=== PATIENT | female | born 1980 | race African-American/Black ===

== ENCOUNTER 2017-10-29 16:21 | Emergency (ER) | payer MEDICAID ==
[~2017-10-29] VITALS: Ht 154.9 cm; Wt 110.0 kg
[~2017-10-29 16:21] MED LIST: AMLO5 PO; ASPI81TA82 PO; CATA0.2D TD; LABE200T2 PO
[2017-10-29 16:29] VITALS: BP 188/86; PULSE 97; RESP 16; TEMP 98.5; O2SAT 100
== END 2017-10-29 16:55 | disposition left against medical advice (07) ==
LOC: NED 16:21
DX: Z53.21 Procedure and treatment not carried out due to patient leaving prior to being seen by health care provider (principal)
CPT/HCPCS: 99281

== ENCOUNTER 2018-07-14 07:57 | Inpatient (IN) ==
[2018-07-14] MEDS ORDERED: NIFEdipine 10 MG Capsule ONE ×2 (08:16→18:24)
[2018-07-14] MEDS ORDERED: NIFEdipine 10 MG Capsule PO ONE (08:45)
[2018-07-14 09:10] LABS: Hematocrit 31.8 % (35.0-46.0); Hemoglobin 10.7 gm/dL (11.6-15.3); Mean Corpuscular HGB Conc 33.7 % (32.0-36.0); Mean Corpuscular Hemoglobin 27.5 pg (27.0-34.0); Mean Corpuscular Volume 81.6 fL (80.0-100.0); Mean Platelet Volume 8.6 fL (7.0-11.0); Platelet Count 182 th/mm3 (150-450); Red Cell Distribution Width 15.2 % (11.6-17.2); White Blood Count 9.5 th/mm3 (4.0-11.0)
[2018-07-14 09:31] LABS: Albumin 2.3 g/dL (3.4-5.0); Anion Gap 8 meq/L (5-15); Aspartate Aminotransferase 31 U/L (15-37); Blood Urea Nitrogen 9 mg/dL (7-18); Calcium 8.9 mg/dL (8.5-10.1); Carbon Dioxide 21.8 meq/L (21.0-32.0); Chloride 108 meq/L (98-107); Glomerular Filtration Rate Greater Than 89 mL/min (>89); Glucose,Random 77 mg/dL (74-106); Potassium 4.1 meq/L (3.5-5.1); Sodium 138 meq/L (136-145)
[2018-07-14 09:32] LABS: Alanine Aminotransferase 34 U/L (10-53)
[2018-07-14 09:34] LABS: Alkaline Phosphatase 153 U/L (45-117); Total Protein 6.3 g/dL (6.4-8.2)
--- NOTE | 2018-07-14 09:58 | ED ---
History of Present Illness Primary Care Physician: No Primary Care Physician Chief Complaint: shortness of breath History of Present Illness: Patient is a 37 yo at 36 weeks. Patient presented by EMS here, with c/o SOB. Patient has high risk o/a pre-eclampsia, AMA, Obesity, previous C Section. Last ,was complicated by pre-eclampsia, pulmonary embolism, and ARF and had extended stay in ICU . Pt states she woke up this morning and 'did not feel well'. She then noted SOB and called EMS, On arrival here , BP was noted to be 180/100. She denies headache or RUQ pain. She reports active movements, Patient is under the care of Dr Dubon, and is scheduled for repeat C Section at 37 weeks. Weeks Gestation:: 36 Para: 1 : 2 Review of Systems All other systems reviewed negative except as stated in HPI PMFSH - Family History Family History: Family History (Last Updated 07/14/18 @ 10:48 by Jean Myers MD) Other History of pre-eclampsia in prior , currently History of pulmonary embolism History of right salpingo-oophorectomy - Social History I have reviewed the patient's Social History: Yes - Tobacco History Tobacco Use In Past 30 Days: No Smoking Status: Never smoker - Alcohol History How Often Do You Have a Drink Containing Alcohol: Never - Travel History History of Recent Travel: No Recent Travel in the [place] Within the Last 8 Weeks: No Recent Travel Out of the Country Within the Last 8 Weeks: No Medications and Allergies Active Medications: Active Medications Sodium Chloride (Ns Flush) 2 ml IV.FLUSH BID KEITH Sodium Chloride (Ns Flush) 2 ml IV.FLUSH PRN PRN PRN Reason: FLUSH AFTER USING IV ACCESS Allergies Allergy/AdvReac Type Severity Reaction Status Date / Time No Known Allergies Allergy Verified 07/14/18 08:18 Home Medications Medication Instructions Recorded Confirmed Type labetalol 400 mg CHEW TID 07/14/18 07/14/18 History methyldopa 500 mg PO BID 07/14/18 07/14/18 History Exam Vital signs: Vital Signs 07/14/18 08:10 07/14/18 09:10 07/14/18 09:21 Pulse Rate 88 94 H 87 Blood Pressure 140/99 H 139/69 142/79 H Intake & Output 1207/14/18 07/14/18 18:59 06:59 18:59 Weight 122.47 kg Narrative: GENERAL: Well-nourished, well-developed patient, obese. SKIN: Warm and dry. HEAD: Normocephalic and atraumatic. EYES: No scleral icterus. No injection or drainage. ENT: No nasal drainage noted. Mucous membranes pink. Airway patent. NECK: Supple, trachea midline. No JVD. CARDIOVASCULAR: Regular rate and rhythm without murmurs, gallops, or rubs. RESPIRATORY: Breath sounds equal bilaterally. No accessory muscle use. BREASTS: Bilateral exam showed no masses , no retractions, no nipple discharge. ABDOMEN/GI: Abdomen soft, non-tender, bowel sounds present, no rebound, no guarding Gravid to [31] weeks size Fundal Height: [-] GENITOURINARY: External Genitalia: intact and normal in appearance BUS glands: [wnl] Cervix: [firm] Dilatation: [closed] Effacement: [50%] Station: [-3] Presentation: [vertex] Membranes: [intact] Uterine Contractions: [irregular] FHT's: Category: [1] Baseline: [120] Reactive: [-] Variability: [moderate] Decels: [none] EXTREMITIES: No cyanosis or edema 1+. 1+ DTRs at patella, no ankle clonus. BACK: Nontender without obvious deformity. No CVA tenderness. NEUROLOGICAL: Awake and alert. Motor and sensory grossly within normal limits. Five out of 5 muscle strength in all muscle groups. Normal speech. - Constitutional no acute distress Results - Labs Labs: Laboratory Results - last 24 hr 07/14/18 08:34 POC Glucose 84 Assessment and Plan - Diagnosis (1) 36 weeks gestation of Code(s): Z3A.36 - 36 weeks gestation of Status: Acute (2) Shortness of breath during Code(s): O99.89 - Other specified diseases and conditions complicating , childbirth and the puerperium; R06.02 - Shortness of breath Status: Acute Plan: Obtain chest X ray, Will keep for 23 hour observation. (3) Preeclampsia Code(s): O14.90 - Unspecified pre-eclampsia, unspecified trimester Status: Acute Discharge Plan - Discharge Disposition Patient Disposition: ED Admit(ED Internal Use Only) - Discharge Condition Condition: Fair - Discharge Details Diagnosis: Pre-eclampsia, Shortness of breath in antepartum period, 36 weeks gestation of - Physicians Team ED Provider: Zunilda Dahl Primary Care Provider: Primary Care Physici,No Other Providers: Chucky Castano MD, R2
[2018-07-14 10:49] LABS: Protein/Creatinine Ratio,Urine 0.71 (0.00-0.14); Total Protein,Urine Random 147.5 mg/dL (0-11.8)
[2018-07-14 10:50] LABS: Bacteria,Urine Moderate /hpf; Bilirubin,Urine Negative (Negative); Clarity,Urine Hazy (Clear); Color,Urine Yellow (Yellw/Straw); Glucose,Urine (UA) Negative (Negative); Leukocyte Esterase,Urine Large (Negative); Mucus,Urine Few /lpf (Occasional); Nitrite,Urine Negative (Negative); Squamous Epithelial Cell,Urine 6 /hpf (0-5)
--- NOTE | 2018-07-14 11:37 | XR ---
EXAM DATE: 07/14/2018 11:29 AM EST AGE/SEX: 37 years / Female INDICATIONS: . Short of breath. CLINICAL DATA: This is the patient's initial encounter. Patient reports that signs and symptoms have been present for 2 days and indicates a pain score of 0/10. MEDICAL/SURGICAL HISTORY: None. section. COMPARISON: [facility] [place]ST SING[place], 05/22/2013. . FINDINGS: Frontal and lateral views of the chest demonstrate cardiac silhouette size at the upper limits for no rmal. There is a blunting of the costophrenic sulci bilaterally on the lateral view. There is a quest ionable mild airspace consolidation in the right lower lobe. No pneumothorax is identified. Bones and soft tissues demonstrate no acute finding.. CONCLUSION: Trace pleural fluid bilaterally with suspected mild consolidation in the right lower lobe. Cardiac si lhouette size at the upper limits for normal. Electronically signed by: Tristian Saldana MD 07/14/2018 11:36 AM EST
--- NOTE | 2018-07-14 13:16 | ECHRPT ---
Indication: SHORTNESS OF BREATH CONCLUSIONS Normal left ventricular size. Moderate concentric left ventricular hypertrophy. The left ventricular systolic function is low normal with an estimated ejection fraction in the rang e of 50- 55%. [id number] mitral valve regurgitation. There is trace tricuspid valve regurgitation. The estimated pulmonary arterial pressure is 31 mmHg. BP: / HR: Rhythm: MEASUREMENTS (Male / Female) Normal Values Technical Quality: 2D ECHO LV Diastolic Diameter PLAX 4.7 cm 4.2 - 5.9 / 3.9 - 5.3 cm LV Systolic Diameter PLAX 3.6 cm IVS Diastolic Thickness 1.7 cm 0.6 - 1.0 / 0.6 - 0.9 cm LVPW Diastolic Thickness 1.7 cm 0.6 - 1.0 / 0.6 - 0.9 cm LV Relative Wall Thickness 0.7 RV Internal Dim ED PLAX 2.7 cm LVOT Diameter 1.8 cm Aortic Root Diameter 2.7 cm LA Systolic Diameter LX 3.5 cm 3.0 - 4.0 / 2.7 - 3.8 cm LV Ejection Fraction MOD 4C 52.1 % LV Ejection Fraction 4C AL 51.8 % M-MODE AV Cusp Separation MM 1.3 cm DOPPLER AV Peak Velocity 190.0 cm/s AV Peak Gradient 14.4 mmHg LVOT Peak Velocity 107.0 cm/s LVOT Peak Gradient 4.6 mmHg AV Area Cont Eq pk 1.4 cm MR Peak Velocity 256.5 cm/s MR Peak Gradient 26.3 mmHg Mitral E Point Velocity 97.2 cm/s Mitral A Point Velocity 102.0 cm/s Mitral E to A Ratio 1.0 TR Peak Velocity 229.0 cm/s TR Peak Gradient 21.0 mmHg Right Atrial Pressure 10.0 mmHg Pulmonary Artery Systolic Pressu 31.0 mmHg Right Ventricular Systolic Press 31.0 mmHg PV Peak Velocity 130.6 cm/s PV Peak Gradient 6.8 mmHg FINDINGS LEFT VENTRICLE Normal left ventricular size. Moderate concentric left ventricular hypertrophy. The left ventricular systolic function is low normal with an estimated ejection fraction in the rang e of 50- 55%. RIGHT VENTRICLE Normal right ventricular size and systolic function. LEFT ATRIUM The left atrial size is normal. RIGHT ATRIUM The right atrial size is normal. ATRIAL SEPTUM Normal atrial septal thickness without atrial level shunting by limited color doppler interrogation. AORTA The aortic root and proximal ascending aorta are normal in size on limited imaging. MITRAL VALVE [id number] central mitral valve regurgitation. AORTIC VALVE Trileaflet aortic valve. No aortic valve stenosis or regurgitation. TRICUSPID VALVE There is trace tricuspid valve regurgitation. The estimated pulmonary arterial pressure is 31 mmHg. PULMONARY VALVE No pulmonary valve regurgitation or stenosis. VESSELS The inferior vena cava is normal in size. PERICARDIUM No pericardial effusion. Noé Khan MD (Electronically Signed) Final Date:14 July 2018 13:16
[2018-07-14] MEDS ORDERED: Azithromycin 250 MG Tablet PO SCH (13:30)
[2018-07-14] MEDS ORDERED: Naloxone Inj 0.4 MG/ML Vial IV.PUSH PRN (14:15)
--- NOTE | 2018-07-14 15:12 | P.CONFP ---
History of Present Illness Primary Care Provider: No Primary Care Physician <Arpita Hill - 07/15/18 06:52> No Primary Care Physician <Josette Londono - 07/14/18 15:12> Chief Complaint: shortness of breath <ShakiraaltagraciaBenjamín lambJosette - 07/14/18 15:12> History of Present Illness: 37-year-old female at 38 weeks presents with shortness of breath. She says that her shortness of breath usually occurs with exertion but this morning she woke up and felt acutely short of breath at rest. She also complained of some chest pain that happened the night before, described as a pressure on her chest and was also nauseous. She states that at night she is unable to lay flat and confirms orthopnea of 2 pillows. She denies any cough. She was short of breath during her last and had to deliver because of "fluid congestion in her lungs". She was recently hospitalized around June 12 for elevated blood pressures, she was discharged and told to be on bedrest. She has been on bedrest since. She confirms leg swelling, and headaches. She denies any blurry vision, fevers, night sweats, chills, chest pain currently, shortness of breath improved, abdominal pain, problems with urination or defecation, leg pain. Past medical history: Heart murmur, hypertension, GERD. Past obstetrical history: Diagnosed with preeclampsia in previous , had episodes of shortness of breath, PE, acute renal failure with ICU stay after delivery. Medications: Alpha methyldopa 500 twice daily, labetalol 400 3 times daily. Past surgical history: , laparoscopy Allergies: No known drug allergy Social history: Lives with mom. Denies any smoking, drinking or drug use during . ROS: See HPI. <Josette Londono - 07/14/18 17:10> PMFSH - Family History Family History: Family History (Last Updated 07/14/18 @ 10:48 by Jean Myers MD) Other History of pre-eclampsia in prior , currently History of pulmonary embolism History of right salpingo-oophorectomy <Arpita Hill - 07/15/18 06:52> Family History (Last Updated 07/14/18 @ 10:48 by Jean Myers MD) Other History of pre-eclampsia in prior , currently History of pulmonary embolism History of right salpingo-oophorectomy <ShakiracinthiaJosette - 07/14/18 15:12> - Tobacco History Tobacco Use In Past 30 Days: No <ShakiracinthiaJosette - 07/14/18 15:12> Smoking Status: Never smoker <ShakiracinthiaJosette - 07/14/18 15:12> - Alcohol History How Often Do You Have a Drink Containing Alcohol: Never <Josette Londono - 02/22 15:12> - Travel History History of Recent Travel: No <ShakiracinthiaJosette - 07/14/18 15:12> Recent Travel in the [place] Within the Last 8 Weeks: No <Josette Londono - 15:12> Recent Travel Out of the Country Within the Last 8 Weeks: No <BryJosette - 07/14/18 15:12> Medications and Allergies Allergies Allergy/AdvReac Type Severity Reaction Status Date / Time No Known Allergies Allergy Verified 07/14/18 08:18 <Arpita Hill - 07/15/18 06:52> Home Medications Medication Instructions Recorded Confirmed Type labetalol 400 mg CHEW TID 07/14/18 07/14/18 History methyldopa 500 mg PO BID 07/14/18 07/14/18 History <Arpita Hill - 07/15/18 06:52> Active Medications: Active Medications Acetaminophen (Tylenol) 650 mg PO Q6HR PRN PRN Reason: pain Acetaminophen (Tylenol) 650 mg PO Q6H PRN PRN Reason: PAIN SCALE 1 TO 2 Calcium Gluconate (Calcium Gluconate Inj) 1 gm IV.PUSH PRN PRN PRN Reason: Magnesium toxicity Diphenhydramine HCl (Benadryl Inj) 25 mg IV.PUSH Q6H PRN PRN Reason: MILD TO MODERATE ITCHING Stop: 07/16/18 05:29 Diphenhydramine HCl (Benadryl) 50 mg PO Q6H PRN PRN Reason: MILD TO MODERATE ITCHING Stop: 07/16/18 05:29 Diphtheria/Pertussis/Tetanus Vacc (Boostrix Vaccine Inj) 0.5 ml IM .ONCE ONE Stop: 07/16/18 16:01 Enoxaparin Sodium (Lovenox Inj) 40 mg SQ DAILY [facility] Ceftriaxone Sodium 1,000 mg/ (Sodium Chloride) 100 mls @ 200 mls/hr IV.SIG Q24H [facility] Last Infusion: 07/14/18 14:35 Dose: Infused Lactated Ringer's (Lr 1000 Ml Inj) 1,000 mls @ 100 mls/hr IV.CONT .Q10H [facility] Stop: 07/16/18 03:35 Oxytocin (Pitocin 30 Units/Ns 500 Ml Premix) 30 units in 500 mls @ 100 mls/hr IV.SIG UNSCH PRN PRN Reason: Heavy bleeding Oxytocin (Pitocin 30 Units/Ns 500 Ml Premix) 30 units in 500 mls @ 100 mls/hr IV.SIG ONCE ONE Stop: 07/15/18 07:35 Last Admin: 07/15/18 05:19 Dose: 100 mls/hr Lactated Ringer's (Lr 1000 Ml Inj) 1,000 mls @ 75 mls/hr IV.CONT .[id number] [facility] Last Admin: 07/15/18 05:19 Dose: 75 mls/hr Magnesium Sulfate (Magnesium Sulfate/Water 40 Gm/1000 Ml Premix) 40 gm in 1, 000 mls @ 50 mls/hr IV.CONT Q24H [facility] Last Admin: 07/15/18 02:57 Dose: 2 gm/hr, 50 mls/hr Cefazolin Sodium/Dextrose (Ancef 2 Gm Premix Inj) 2 gm in 50 mls @ 100 mls/hr IV.SIG Q8H [facility] Stop: 07/15/18 17:29 Ibuprofen (Motrin) 800 mg PO Q8H PRN PRN Reason: cramping Ketorolac Tromethamine (Toradol Inj) 30 mg IM Q6H PRN PRN Reason: SEE LABEL COMMENTS Labetalol HCl (Trandate) 400 mg PO TID [facility] Last Admin: 07/14/18 18:56 Dose: Not Given Measles/Mumps/Rubella Vaccine Live (M-M-R Ii Vaccine Inj) 0.5 ml SQ .ONCE ONE Stop: 07/16/18 16:01 Methyldopa (Aldomet) 500 mg PO BID [facility] Last Admin: 12/07/18 20:49 Dose: 500 mg Miscellaneous Information ([facility] Nursing Information) 1 each OTHER UNSCH PRN PRN Reason: SEE LABEL COMMENTS Stop: 07/16/18 05:29 Miscellaneous Information ([facility] Nursing Information) 1 each OTHER UNSCH PRN PRN Reason: SEE LABEL COMMENTS Stop: 07/16/18 05:29 Naloxone HCl (Narcan Inj) 0.4 mg IV.PUSH UNSCH PRN PRN Reason: SEE LABEL COMMENTS Naloxone HCl (Narcan Inj) 0.4 mg IV.PUSH UNSCH PRN PRN Reason: SEE LABEL COMMENTS Stop: 07/16/18 05:29 Ondansetron HCl (Zofran Inj) 4 mg IV.PUSH Q6H PRN PRN Reason: NAUSEA OR VOMITING Oxycodone/Acetaminophen (Percocet 5/325 Mg) 1 tab PO Q4H PRN PRN Reason: PAIN SCALE 3 TO 5 Oxycodone/Acetaminophen (Percocet 5/325 Mg) 2 tab PO Q4H PRN PRN Reason: PAIN SCALE 6 TO 10 Senna/Docusate Sodium (Siria-Colace) 2 tab PO Q12H PRN PRN Reason: CONSTIPATION Simethicone (Mylicon Chew) 80 mg PO QID PRN PRN Reason: FLATULENCE Sodium Chloride (Ns Flush) 2 ml IV.FLUSH BID [facility] Last Admin: 07/14/18 20:49 Dose: 2 ml Sodium Chloride (Ns Flush) 2 ml IV.FLUSH PRN PRN PRN Reason: FLUSH AFTER USING IV ACCESS Sodium Chloride (Ns Flush) 2 ml IV.FLUSH BID [facility] Sodium Chloride (Ns Flush) 2 ml IV.FLUSH PRN PRN PRN Reason: FLUSH AFTER USING IV ACCESS Sodium Chloride (Ns Flush) 2 ml IV.FLUSH BID [facility] Sodium Chloride (Ns Flush) 2 ml IV.FLUSH PRN PRN PRN Reason: FLUSH AFTER USING IV ACCESS Zolpidem Tartrate (Ambien) 5 mg PO HS PRN PRN Reason: INSOMNIA <Arpita Hill R - 07/15/18 06:52> Active Medications Acetaminophen (Tylenol) 650 mg PO Q6HR PRN PRN Reason: pain Azithromycin (Zithromax) 500 mg PO DAILY [facility] Last Admin: 07/14/18 14:05 Dose: 500 mg Ceftriaxone Sodium 1,000 mg/ (Sodium Chloride) 100 mls @ 200 mls/hr IV.SIG Q24H [facility] Last Admin: 07/14/18 14:05 Dose: 200 mls/hr Labetalol HCl (Trandate) 400 mg PO TID [facility] Methyldopa (Aldomet) 500 mg PO BID [facility] Naloxone HCl (Narcan Inj) 0.4 mg IV.PUSH UNSCH PRN PRN Reason: SEE LABEL COMMENTS Sodium Chloride (Ns Flush) 2 ml IV.FLUSH BID [facility] Sodium Chloride (Ns Flush) 2 ml IV.FLUSH PRN PRN PRN Reason: FLUSH AFTER USING IV ACCESS <Josette Londono - 07/14/18 15:12> Exam Vital signs: Vital Signs 07/14/18 08:10 07/14/18 09:10 07/14/18 09:21 Temperature Pulse Rate 88 94 H 87 Respiratory Rate Blood Pressure 140/99 H 139/69 142/79 H 07/14/18 13:55 07/14/18 14:00 07/14/18 14:10 Temperature 98.9 F Pulse Rate 90 87 85 Respiratory Rate 22 Blood Pressure 152/82 H 07/14/18 14:35 07/14/18 14:40 07/14/18 14:50 Temperature Pulse Rate 88 86 86 Respiratory Rate Blood Pressure 07/14/18 16:00 07/14/18 16:10 07/14/18 16:20 Temperature 99.1 F Pulse Rate 91 H 86 86 Respiratory Rate 22 Blood Pressure 178/76 H 07/14/18 16:45 07/14/18 17:25 07/14/18 17:30 Temperature 98.5 F Pulse Rate 88 80 Respiratory Rate 20 Blood Pressure 172/84 H 07/14/18 17:35 07/14/18 17:38 07/14/18 18:15 Temperature Pulse Rate 95 H 86 85 Respiratory Rate Blood Pressure 174/86 H 174/80 H 07/14/18 18:17 07/14/18 18:20 07/14/18 18:25 Temperature Pulse Rate 90 84 87 Respiratory Rate 22 Blood Pressure 165/83 H 07/14/18 18:40 07/14/18 18:50 07/14/18 18:54 Temperature Pulse Rate 85 97 H 94 H Respiratory Rate 28 H Blood Pressure 161/80 H 157/89 H 07/14/18 18:55 07/14/18 19:25 07/14/18 19:32 Temperature 99.3 F Pulse Rate 93 H 89 90 Respiratory Rate 18 Blood Pressure 151/77 H 150/86 H 142/78 H 07/14/18 20:00 07/14/18 20:01 07/14/18 20:49 Temperature Pulse Rate 95 H 91 H 87 Respiratory Rate Blood Pressure 140/68 149/89 H 07/14/18 21:15 07/14/18 21:25 07/14/18 21:31 Temperature Pulse Rate 88 82 82 Respiratory Rate Blood Pressure 160/82 H 07/14/18 21:35 07/14/18 22:05 07/14/18 22:10 Temperature Pulse Rate 84 81 89 Respiratory Rate Blood Pressure 156/77 H 07/14/18 22:25 07/14/18 23:55 07/15/18 00:00 Temperature Pulse Rate 83 81 81 Respiratory Rate Blood Pressure 182/87 H 07/15/18 00:05 07/15/18 00:20 07/15/18 02:35 Temperature 97.5 F L Pulse Rate 79 81 62 Respiratory Rate 20 Blood Pressure 181/82 H 147/78 H 07/15/18 02:53 07/15/18 03:03 07/15/18 03:11 Temperature Pulse Rate 56 L 68 Respiratory Rate 20 22 Blood Pressure 156/89 H 143/86 H 163/75 H 07/15/18 03:15 07/15/18 03:21 07/15/18 03:30 Temperature Pulse Rate 62 Respiratory Rate 16 Blood Pressure 163/76 H 167/79 H 07/15/18 03:31 07/15/18 03:34 07/15/18 03:51 Temperature Pulse Rate Respiratory Rate Blood Pressure 178/86 H 164/76 H 176/84 H 07/15/18 03:55 07/15/18 04:01 07/15/18 04:13 Temperature Pulse Rate 68 66 Respiratory Rate 16 Blood Pressure 178/83 H 134/74 130/69 07/15/18 04:17 07/15/18 04:29 07/15/18 05:10 Temperature Pulse Rate 67 65 Respiratory Rate Blood Pressure 153/70 H 143/63 H 140/82 07/15/18 05:13 07/15/18 05:15 07/15/18 05:25 Temperature 98.8 F Pulse Rate 73 Respiratory Rate 16 Blood Pressure 07/15/18 05:35 07/15/18 05:45 07/15/18 05:50 Temperature Pulse Rate 72 79 66 Respiratory Rate Blood Pressure 07/15/18 06:00 07/15/18 06:23 07/15/18 06:25 Temperature Pulse Rate 76 70 70 Respiratory Rate 18 Blood Pressure 138/68 07/15/18 06:35 Temperature Pulse Rate 70 Respiratory Rate Blood Pressure Intake & Output 07/14/18 07/14/18 07/15/18 06:59 18:59 06:59 Intake Total 100 / 100 / 205 Balance 100 / 100 / 205 Weight 122.47 kg Intake: IV 100 / 100 / 205 Ancef Inj 5 ML @ 0 mls/hr . 5 / 5 ROUTE .STK-MED ONE Rx#:[id number] Ofirmev Inj 1,000 mg In 100 ml 100 / 100 @ 0 mls/hr IV.SIG .STK-MED ONE Rx#:[id number] Magnesium Sulfate/Water 4 gm/ 100 / 100 100 ml Premix 100 ML @ 300 mls/ hr IV.SIG ONCE ONE Rx#:[id number] Rocephin Inj 1,000 MG In NS Inj 100 / 100 100 ML @ 200 mls/hr IV.SIG Q24H [facility] Rx#:[id number] <Arpita Hill - 07/15/18 06:52> Vital Signs 07/14/18 08:10 07/14/18 09:10 07/14/18 09:21 Temperature Pulse Rate 88 94 H 87 Respiratory Rate Blood Pressure 140/99 H 139/69 142/79 H 07/14/18 13:55 07/14/18 14:00 07/14/18 14:10 Temperature 98.9 F Pulse Rate 90 87 85 Respiratory Rate 22 Blood Pressure 152/82 H 07/14/18 14:35 Temperature Pulse Rate 88 Respiratory Rate Blood Pressure Intake & Output 07/13/18 07/14/18 07/14/18 18:59 06:59 18:59 Weight 122.47 kg <Josette Londono - 07/14/18 15:12> Narrative: GENERAL: Obese appearing female, laying comfortably in bed, on room air, in no acute distress. SKIN: Warm and dry. HEAD: Normocephalic. EYES: No scleral icterus. No injection or drainage. NECK: Supple, trachea midline. No JVD or lymphadenopathy. CARDIOVASCULAR: Grade 3 out of 5 systolic murmur appreciated at the left sternal border. RESPIRATORY: Breath sounds equal bilaterally. No accessory muscle use. GASTROINTESTINAL: Abdomen soft, non-tender, gravid. Bowel sounds present. MUSCULOSKELETAL: 2+ pitting edema bilaterally. Left calf tenderness to palpation. <BryJosette - 07/14/18 17:08> Results - Labs Result diagrams: 07/15/18 06:11 07/14/18 08:44 <Arpita Hill - 07/15/18 06:52> Abnormal lab results 07/14/18 07/14/18 07/14/18 Range/Units 08:05 08:05 08:05 WBC (4.0-11.0) th/mm3 RBC (4.00-5.30) mil/mm3 Hgb (11.6-15.3) gm/dL Hct (35.0-46.0) % Chloride (98-107) meq/L Alkaline Phosphatase (45-117) U/L Total Protein (6.4-8.2) g/dL Albumin (3.4-5.0) g/dL Urine Clarity Hazy H (Clear) Urine Protein 100 H (Neg-Trace) mg/dL Urine Ketones Trace H (Negative) mg/dL Urine Occult Blood Small H (Negative) Ur Leukocyte Esterase Large H (Negative) Urine RBC 4 H (0-3) /hpf Urine WBC 15 H (0-5) /hpf Urine Bacteria Moderate H (None) /hpf Urine Mucus Few H (Occasional) /lpf U Random Total Protein 147.5 H (0-11.8) mg/dL Protein/Creatinin Ratio 0.71 H (0.00-0.14) Ur Amphetamine Screen Pos H (Neg) 07/14/18 07/14/18 07/15/18 Range/Units 08:44 08:44 06:11 WBC 16.7 H D (4.0-11.0) th/mm3 RBC 3.90 L 3.91 L (4.00-5.30) mil/mm3 Hgb 10.7 L 10.9 L (11.6-15.3) gm/dL Hct 31.8 L 31.5 L (35.0-46.0) % Chloride 108 H (98-107) meq/L Alkaline Phosphatase 153 H (45-117) U/L Total Protein 6.3 L (6.4-8.2) g/dL Albumin 2.3 L (3.4-5.0) g/dL Urine Clarity (Clear) Urine Protein (Neg-Trace) mg/dL Urine Ketones (Negative) mg/dL Urine Occult Blood (Negative) Ur Leukocyte Esterase (Negative) Urine RBC (0-3) /hpf Urine WBC (0-5) /hpf Urine Bacteria (None) /hpf Urine Mucus (Occasional) /lpf U Random Total Protein (0-11.8) mg/dL Protein/Creatinin Ratio (0.00-0.14) Ur Amphetamine Screen (Neg) Short CBC 07/14/18 07/15/18 Range/Units 08:44 06:11 WBC 9.5 16.7 H D (4.0-11.0) th/mm3 Hgb 10.7 L 10.9 L (11.6-15.3) gm/dL Hct 31.8 L 31.5 L (35.0-46.0) % Plt Count 182 194 (150-450) th/mm3 BMP 07/14/18 08:44 Sodium 138 Potassium 4.1 Chloride 108 H Carbon Dioxide 21.8 BUN 9 Creatinine 0.73 Calcium 8.9 Cardiac Enzymes 07/14/18 Range/Units 14:00 Troponin I 0.02 (0.02-0.05) ng/mL Liver Function 07/14/18 Range/Units 08:44 Total Bilirubin 0.3 (0.2-1.0) mg/dL AST 31 (15-37) U/L ALT 34 (10-53) U/L Alkaline Phosphatase 153 H (45-117) U/L Albumin 2.3 L (3.4-5.0) g/dL Urine 07/14/18 Range/Units 08:05 Urine Color Yellow (Yellw/Straw) Urine Clarity Hazy H (Clear) Urine pH 6.0 (5.0-8.5) Ur Specific [place] 1.020 (1.002-1.035) Urine Protein 100 H (Neg-Trace) mg/dL Urine Glucose (UA) Negative (Negative) mg/dL <Arpita Hill - 07/15/18 06:52> Abnormal lab results 07/14/18 07/14/18 07/14/18 Range/Units 08:05 08:05 08:44 RBC 3.90 L (4.00-5.30) mil/mm3 Hgb 10.7 L (11.6-15.3) gm/dL Hct 31.8 L (35.0-46.0) % Chloride (98-107) meq/L Alkaline Phosphatase (45-117) U/L Total Protein (6.4-8.2) g/dL Albumin (3.4-5.0) g/dL Urine Clarity Hazy H (Clear) Urine Protein 100 H (Neg-Trace) mg/dL Urine Ketones Trace H (Negative) mg/dL Urine Occult Blood Small H (Negative) Ur Leukocyte Esterase Large H (Negative) Urine RBC 4 H (0-3) /hpf Urine WBC 15 H (0-5) /hpf Urine Bacteria Moderate H (None) /hpf Urine Mucus Few H (Occasional) /lpf U Random Total Protein 147.5 H (0-11.8) mg/dL Protein/Creatinin Ratio 0.71 H (0.00-0.14) 07/14/18 Range/Units 08:44 RBC (4.00-5.30) mil/mm3 Hgb (11.6-15.3) gm/dL Hct (35.0-46.0) % Chloride 108 H (98-107) meq/L Alkaline Phosphatase 153 H (45-117) U/L Total Protein 6.3 L (6.4-8.2) g/dL Albumin 2.3 L (3.4-5.0) g/dL Urine Clarity (Clear) Urine Protein (Neg-Trace) mg/dL Urine Ketones (Negative) mg/dL Urine Occult Blood (Negative) Ur Leukocyte Esterase (Negative) Urine RBC (0-3) /hpf Urine WBC (0-5) /hpf Urine Bacteria (None) /hpf Urine Mucus (Occasional) /lpf U Random Total Protein (0-11.8) mg/dL Protein/Creatinin Ratio (0.00-0.14) Short CBC 07/14/18 Range/Units 08:44 WBC 9.5 (4.0-11.0) th/mm3 Hgb 10.7 L (11.6-15.3) gm/dL Hct 31.8 L (35.0-46.0) % Plt Count 182 (150-450) th/mm3 BMP 07/14/18 08:44 Sodium 138 Potassium 4.1 Chloride 108 H Carbon Dioxide 21.8 BUN 9 Creatinine 0.73 Calcium 8.9 Cardiac Enzymes 07/14/18 Range/Units 14:00 Troponin I 0.02 (0.02-0.05) ng/mL Liver Function 07/14/18 Range/Units 08:44 Total Bilirubin 0.3 (0.2-1.0) mg/dL AST 31 (15-37) U/L ALT 34 (10-53) U/L Alkaline Phosphatase 153 H (45-117) U/L Albumin 2.3 L (3.4-5.0) g/dL Urine 07/14/18 Range/Units 08:05 Urine Color Yellow (Yellw/Straw) Urine Clarity Hazy H (Clear) Urine pH 6.0 (5.0-8.5) Ur Specific [place] 1.020 (1.002-1.035) Urine Protein 100 H (Neg-Trace) mg/dL Urine Glucose (UA) Negative (Negative) mg/dL <Josette Londono - 07/14/18 15:12> - Imaging Impressions Chest CTA 07/14/18 00:00 CONCLUSION: 1. There is no evidence for central pulmonary emboli 2. Trace bilateral pleural effusions larger on the right. Chest X-Ray 07/14/18 10:04 CONCLUSION: Trace pleural fluid bilaterally with suspected mild consolidation in the right lower lobe. Cardiac silhouette size at the upper limits for normal. <Arpita Hill - 07/15/18 06:52> Impressions Chest X-Ray 07/14/18 10:04 CONCLUSION: Trace pleural fluid bilaterally with suspected mild consolidation in the right lower lobe. Cardiac silhouette size at the upper limits for normal. <Josette Londono - 07/14/18 15:12> Assessment and Plan - Assessment (1) Shortness of breath during Code(s): O99.89 - Other specified diseases and conditions complicating , childbirth and the puerperium; R06.02 - Shortness of breath Status: Acute (2) 36 weeks gestation of Code(s): Z3A.36 - 36 weeks gestation of Status: Acute (3) Preeclampsia Code(s): O14.90 - Unspecified pre-eclampsia, unspecified trimester Status: Acute (4) Urinary tract infection Code(s): N39.0 - Urinary tract infection, site not specified Status: Acute (5) DVT prophylaxis Status: Acute (6) Nutrition, metabolism, and development symptoms Code(s): R63.8 - Other symptoms and signs concerning food and fluid intake Status: Acute <Arpita Hill Ashwini - 07/15/18 06:52> (1) Shortness of breath during Code(s): O99.89 - Other specified diseases and conditions complicating , childbirth and the puerperium; R06.02 - Shortness of breath Status: Acute Plan: 37-year-old female with preeclampsia, past history of PE, presents with acute onset shortness of breath at rest. Due to patient being on bedrest, previous PE, hypercoagulable state with , left calf pain on exam and acute shortness of breath. Concern for PE -Chest x-ray concerning for right lower lobe consolidation. VQ scan will be an accurate due to abnormal chest x-ray. Will order CTA to rule out PE. -Empirically start on ceftriaxone and azithromycin to cover for atypical and gram-positive pneumonia. -Patient complaining of chest pressure last night. Will order EKG and troponins. -Patient has orthopnea. Echocardiogram ordered to rule out cardiomyopathy. -Continue on labetalol 400 mg and Aldomet 500 p.o. twice daily -Continue to monitor blood pressures. (2) 36 weeks gestation of Code(s): Z3A.36 - 36 weeks gestation of Status: Acute Plan: She confirms good movements. Plans for repeat at 37 weeks. BPP ordered. (3) Preeclampsia Code(s): O14.90 - Unspecified pre-eclampsia, unspecified trimester Status: Acute Plan: Continue on labetalol and methyldopa. Urine protein/creatinine ordered. (4) Urinary tract infection Code(s): N39.0 - Urinary tract infection, site not specified Status: Acute Plan: Urine positive for large leukocyte esterase. Moderate bacteria. Urine culture pending. Will start on 1 g of ceftriaxone. (5) DVT prophylaxis Status: Acute Plan: SCD only. (6) Nutrition, metabolism, and development symptoms Code(s): R63.8 - Other symptoms and signs concerning food and fluid intake Status: Acute Plan: Fluids: Average p.o. intake Electrolyte: Monitor and replete as needed. Nutrition: Regular diet. <Josette Londono - 07/14/18 17:14> - Assessment and Plan Discussed Condition With: Dr. Hill. <Josette Londono - 07/14/18 17:12> - Attending Attestation Patient seen and examined with the resident team. Agree with assessment and plan as above. Possible PNA on CXR, urine with signs of UTI - treat with rocephin/zithromax - follow cultures R/o PE in this high risk patient with CTA. Risks/benefits reviewed with patient. She agrees to the testing Echo to help determine if PT has CHF picture Check cardiac enzymes. <Arpita Hill - 07/15/18 06:52>
--- NOTE | 2018-07-14 15:44 | CT ---
EXAM DATE: 07/14/2018 3:36 PM EST AGE/SEX: 37 years / Female INDICATIONS: Short of breath, Patient 36 weeks CLINICAL DATA: This is the patient's initial encounter. Patient reports that signs and symptoms have been present for 1 day and indicates a pain score of 6/10. MEDICAL/SURGICAL HISTORY: . Pulmonary Embolism . Right oophorectomy RADIATION DOSE: 10.62 CTDI (mGy) COMPARISON: No prior exams available for comparison. TECHNIQUE: Volumetric scanning was performed using a multi-row detector CT scanner during bolus infu raman of 74ML ml Omnipaque 350 (iohexol) nonionic water-soluble contrast as a single exam dose. The d addie was post processed with a variety of visualization algorithms including full volume maximum inten sity projection and sliding thin slab reformation. Using automated exposure control and adjustment of the mA and/or kV according to patient size, radiation dose was kept as low as reasonably achievable to obtain optimal diagnostic quality images. DICOM format image data is available electronically for review and comparison. FINDINGS: Pulmonary Arteries: No filling defects are seen in the pulmonary arteries out to the subsegmental ve ssels. Heart is prominent probably related to . The left and right pulmonary arteries are no rmal in diameter. Lung: No infiltrates seen. Effusion: Trace bilateral pleural effusions larger on the right Mediastinum: No evidence of mediastinal or hilar adenopathy. CONCLUSION: 1. There is no evidence for central pulmonary emboli 2. Trace bilateral pleural effusions larger on the right. Electronically signed by: Riley Romero MD 07/14/2018 3:42 PM EST
[2018-07-14] MEDS ORDERED: Labetalol 200 MG Tablet PO ONE (16:15)
[2018-07-14] MEDS ORDERED: hydrALAZINE HCl Inj 20 MG/ML Vial IV.PUSH STA (17:52)
[2018-07-14] MEDS ORDERED: NIFEdipine 10 MG Capsule PO STA (18:24)
[2018-07-14] MEDS: Labetalol 200 MG Tablet PO SCH (18:56)
[2018-07-14 20:23] LABS: Benzodiazepine Urine With Conf Neg (Neg); Cocaine Urine With Conf Neg (Neg); Opiates Urine With Conf Neg (Neg)
[2018-07-14 20:27] LABS: Cannabinoid Urine With Conf Neg (Neg)
[2018-07-14 20:29] LABS: Amphetamine Urine With Conf Pos (Neg)
[2018-07-14] MEDS ORDERED: Labetalol 100 MG Tablet PO ONE (21:55)
--- NOTE | 2018-07-14 22:20 | P.HPOB ---
History of Present Illness Primary Care Physician: No Primary Care Physician Chief Complaint: shortness of breath History of Present Illness: Patient is a 37 yo at 36 weeks who presented to OB ED via EMS. Patient reported SOB this morning on waking up. On presentation to ED initial BP was 180/100. Pt has high risk complicated by pre-eclampsia, AMA, obesity and previous c Section. Pt had delivery by C section 3 years ago that was also complicated by pre- eclampsia. After that delivery she developed PE, ARF and had extended ICU admission. C Section was indicated for NRFHR. She is on Labetalol 400mg TID and Aldomet 500mg BID. Medication has been progressively increased past few weeks. Pt has had weekly 24 hour urine protein past few weeks, with numbers creeping past 300mg. She was scheduled for repeat LTCS at 37 weeks . She has twice weekly testing. Patient has been on ASA 81mg . Sge reports active movements. She has intermittent headaches, but no blurred vision or epigastric pain. Platelets, AST/ALT were all wnl. However random urine PCR was elevated. BP was controlled with PO Nifedipine. However chest xray showed right lower lobe consolidation, with trace pleural edema. Chest CTA ruled out pulmonary embolism. ECHO was wnl. Weeks Gestation:: 36 Para: 1 : 2 - Inpatient Certification I certify that the inpatient services were ordered in accordance with Medicare regulations governing the order. This includes certification that hospital inpatient services are reasonable and necessary and in the case of services not specified as inpatient-only under 42 CFR 419.22(n), that they are appropriately provided as inpatient services in accordance to with the 2-midnight benchmark under 43 CFR 412.3(e) Review of Systems All other systems reviewed negative except as stated in HPI PMFSH - Medical History Medical History: Medical History (Last Updated 07/14/18 @ 22:12 by Jean Myers MD) History of pulmonary embolism (Acute) History of pre-eclampsia (Acute) History of pulmonary embolism - Surgical History Surgical History: Surgical History (Last Updated 07/14/18 @ 22:12 by Jean Myers MD) History of section (Acute) - Family History Family History: Family History (Last Reviewed 07/14/18 @ 22:13 by Jean Myers MD) Other History of pre-eclampsia in prior , currently History of pulmonary embolism History of right salpingo-oophorectomy - Social History I have reviewed the patient's Social History: Yes - Tobacco History Tobacco Use In Past 30 Days: No Smoking Status: Never smoker - Alcohol History How Often Do You Have a Drink Containing Alcohol: Never - Travel History History of Recent Travel: No Recent Travel in the [place] Within the Last 8 Weeks: No Recent Travel Out of the Country Within the Last 8 Weeks: No Medications and Allergies Active Medications: Active Medications Acetaminophen (Tylenol) 650 mg PO Q6HR PRN PRN Reason: pain Ceftriaxone Sodium 1,000 mg/ (Sodium Chloride) 100 mls @ 200 mls/hr IV.SIG Q24H [facility] Last Infusion: 07/14/18 14:35 Dose: Infused Labetalol HCl (Trandate) 400 mg PO TID [facility] Last Admin: 07/14/18 18:56 Dose: Not Given Labetalol HCl (Trandate) 400 mg PO ONCE ONE Stop: 07/14/18 21:56 Methyldopa (Aldomet) 500 mg PO BID [facility] Last Admin: 07/14/18 20:49 Dose: 500 mg Naloxone HCl (Narcan Inj) 0.4 mg IV.PUSH UNSCH PRN PRN Reason: SEE LABEL COMMENTS Sodium Chloride (Ns Flush) 2 ml IV.FLUSH BID [facility] Last Admin: 07/14/18 20:49 Dose: 2 ml Sodium Chloride (Ns Flush) 2 ml IV.FLUSH PRN PRN PRN Reason: FLUSH AFTER USING IV ACCESS Allergies Allergy/AdvReac Type Severity Reaction Status Date / Time No Known Allergies Allergy Verified 07/14/18 08:18 Home Medications Medication Instructions Recorded Confirmed Type labetalol 400 mg CHEW TID 07/14/18 07/14/18 History methyldopa 500 mg PO BID 07/14/18 07/14/18 History Exam Vital signs: Vital Signs 07/14/18 08:10 07/14/18 09:10 07/14/18 09:21 Temperature Pulse Rate 88 94 H 87 Respiratory Rate Blood Pressure 140/99 H 139/69 142/79 H 07/14/18 13:55 07/14/18 14:00 07/14/18 14:10 Temperature 98.9 F Pulse Rate 90 87 85 Respiratory Rate 22 Blood Pressure 152/82 H 07/14/18 14:35 07/14/18 14:40 07/14/18 14:50 Temperature Pulse Rate 88 86 86 Respiratory Rate Blood Pressure 07/14/18 16:00 07/14/18 16:10 07/14/18 16:20 Temperature 99.1 F Pulse Rate 91 H 86 86 Respiratory Rate 22 Blood Pressure 178/76 H 07/14/18 16:45 07/14/18 17:25 07/14/18 17:30 Temperature 98.5 F Pulse Rate 88 80 Respiratory Rate 20 Blood Pressure 172/84 H 07/14/18 17:35 07/14/18 17:38 07/14/18 18:15 Temperature Pulse Rate 95 H 86 85 Respiratory Rate Blood Pressure 174/86 H 174/80 H 07/14/18 18:17 07/14/18 18:20 07/14/18 18:25 Temperature Pulse Rate 90 84 87 Respiratory Rate 22 Blood Pressure 165/83 H 07/14/18 18:40 07/14/18 18:50 07/14/18 18:54 Temperature Pulse Rate 85 97 H 94 H Respiratory Rate 28 H Blood Pressure 161/80 H 157/89 H 07/14/18 18:55 07/14/18 19:25 07/14/18 19:32 Temperature 99.3 F Pulse Rate 93 H 89 90 Respiratory Rate 18 Blood Pressure 151/77 H 150/86 H 142/78 H 07/14/18 20:00 07/14/18 20:01 07/14/18 20:49 Temperature Pulse Rate 95 H 91 H 87 Respiratory Rate Blood Pressure 140/68 149/89 H 07/14/18 21:15 07/14/18 21:25 07/14/18 21:31 Temperature Pulse Rate 88 82 82 Respiratory Rate Blood Pressure 160/82 H 07/14/18 21:35 Temperature Pulse Rate 84 Respiratory Rate Blood Pressure Intake & Output 07/14/18 07/14/18 07/15/18 06:59 18:59 06:59 Intake Total 100 / 100 Balance 100 / 100 Weight 122.47 kg Intake: IV 100 / 100 Rocephin Inj 1,000 MG In NS Inj 100 / 100 100 ML @ 200 mls/hr IV.SIG Q24H [facility] Rx#:[id number] Narrative: GENERAL: Well-nourished, well-developed patient, obese. SKIN: Warm and dry. HEAD: Normocephalic and atraumatic. EYES: No scleral icterus. No injection or drainage. ENT: No nasal drainage noted. Mucous membranes pink. Airway patent. NECK: Supple, trachea midline. No JVD. CARDIOVASCULAR: Regular rate and rhythm without murmurs, gallops, or rubs. RESPIRATORY: reduced air entry bilateral bases. No accessory muscle use. BREASTS: Bilateral exam showed no masses , no retractions, no nipple discharge. ABDOMEN/GI: Abdomen soft, non-tender, bowel sounds present, no rebound, no guarding Gravid to [31] weeks size Fundal Height: [-] GENITOURINARY: External Genitalia: intact and normal in appearance BUS glands: [wnl] Cervix: [firm] Dilatation: [closed] Effacement: [50%] Station: [-3] Presentation: [vertex] Membranes: [intact] Uterine Contractions: [irregular] FHT's: Category: [1] Baseline: [120] Reactive: [-] Variability: [moderate] Decels: [none] EXTREMITIES: No cyanosis or edema 1+. 1+ DTRs at patella, no ankle clonus. BACK: Nontender without obvious deformity. No CVA tenderness. NEUROLOGICAL: Awake and alert. Motor and sensory grossly within normal limits. Five out of 5 muscle strength in all muscle groups. Normal speech. - Constitutional mild distress Results - Labs CBC & Chem 7: 07/14/18 08:44 07/14/18 08:44 Labs: Laboratory Results - last 24 hr 07/14/18 07/14/18 07/14/18 08:05 08:05 08:05 WBC RBC Hgb Hct MCV MCH MCHC RDW Plt Count MPV Sodium Potassium Chloride Carbon Dioxide Anion Gap BUN Creatinine Estimated GFR POC Glucose Random Glucose Calcium Total Bilirubin AST ALT Alkaline Phosphatase Troponin I Total Protein Albumin Urine Color Yellow Urine Clarity Hazy H Urine pH 6.0 Ur Specific [place] 1.020 Urine Protein 100 H Urine Glucose (UA) Negative Urine Ketones Trace H Urine Occult Blood Small H Urine Nitrate Negative Urine Bilirubin Negative Urine Urobilinogen Less than 2 Ur Leukocyte Esterase Large H Urine RBC 4 H Urine WBC 15 H Ur Squamous Epith Cells 6 Urine Bacteria Moderate H Urine Mucus Few H Micro UA Comment Culture indicated Ur Microscopic Review Not Reportable Urine Culture Comments Culture indicated Ur Random Creatinine 209 U Random Total Protein 147.5 H Protein/Creatinin Ratio 0.71 H Urine Opiates Screen Neg Ur Barbiturates Screen Neg Ur Amphetamine Screen Pos H U Benzodiazepines Scrn Neg Urine Cocaine Screen Neg U Cannabinoids Screen Neg Blood Type Antibody Screen 07/14/18 07/14/18 07/14/18 08:34 08:44 08:44 WBC 9.5 RBC 3.90 L Hgb 10.7 L Hct 31.8 L MCV 81.6 MCH 27.5 MCHC 33.7 RDW 15.2 Plt Count 182 MPV 8.6 Sodium 138 Potassium 4.1 Chloride 108 H Carbon Dioxide 21.8 Anion Gap 8 BUN 9 Creatinine 0.73 Estimated GFR Greater than 89 POC Glucose 84 Random Glucose 77 Calcium 8.9 Total Bilirubin 0.3 AST 31 ALT 34 Alkaline Phosphatase 153 H Troponin I Total Protein 6.3 L Albumin 2.3 L Urine Color Urine Clarity Urine pH Ur Specific [place] Urine Protein Urine Glucose (UA) Urine Ketones Urine Occult Blood Urine Nitrate Urine Bilirubin Urine Urobilinogen Ur Leukocyte Esterase Urine RBC Urine WBC Ur Squamous Epith Cells Urine Bacteria Urine Mucus Micro UA Comment Ur Microscopic Review Urine Culture Comments Ur Random Creatinine U Random Total Protein Protein/Creatinin Ratio Urine Opiates Screen Ur Barbiturates Screen Ur Amphetamine Screen U Benzodiazepines Scrn Urine Cocaine Screen U Cannabinoids Screen Blood Type Antibody Screen 07/14/18 07/14/18 08:44 14:00 WBC RBC Hgb Hct MCV MCH MCHC RDW Plt Count MPV Sodium Potassium Chloride Carbon Dioxide Anion Gap BUN Creatinine Estimated GFR POC Glucose Random Glucose Calcium Total Bilirubin AST ALT Alkaline Phosphatase Troponin I 0.02 Total Protein Albumin Urine Color Urine Clarity Urine pH Ur Specific [place] Urine Protein Urine Glucose (UA) Urine Ketones Urine Occult Blood Urine Nitrate Urine Bilirubin Urine Urobilinogen Ur Leukocyte Esterase Urine RBC Urine WBC Ur Squamous Epith Cells Urine Bacteria Urine Mucus Micro UA Comment Ur Microscopic Review Urine Culture Comments Ur Random Creatinine U Random Total Protein Protein/Creatinin Ratio Urine Opiates Screen Ur Barbiturates Screen Ur Amphetamine Screen U Benzodiazepines Scrn Urine Cocaine Screen U Cannabinoids Screen Blood Type B Positive Antibody Screen Negative - Imaging Impressions Chest CTA 07/14/18 00:00 CONCLUSION: 1. There is no evidence for central pulmonary emboli 2. Trace bilateral pleural effusions larger on the right. Chest X-Ray 07/14/18 10:04 CONCLUSION: Trace pleural fluid bilaterally with suspected mild consolidation in the right lower lobe. Cardiac silhouette size at the upper limits for normal. Caprini VTE Risk Assessment Caprini VTE Risk Assessment: Moderate/High Risk (score >= 2) Caprini Risk Assessment Model: Point Value = 1 Point Value = 2 Point Value = 3 Point Value = 5 Age 41-60 Minor surgery BMI > 25 kg/m2 Swollen legs Varicose veins or History of unexplained or recurrent spontaneous Oral contraceptives or hormone replacement Sepsis (< 1 month) Serious lung disease, including pneumonia (< 1 month) Abnormal pulmonary function Acute myocardial infarction Congestive heart failure (< 1 month) History of inflammatory bowel disease Medical patient at bed rest Age 61-74 Arthroscopic surgery Major open surgery (> 45 min) Laparoscopic surgery (> 45 min) Malignancy Confined to bed (> 72 hours) Immobilizing plaster cast Central venous access Age >= 75 History of VTE Family history of VTE Factor V Leiden Prothrombin [id number] Lupus anticoagulant Anticardiolipin antibodies Elevated serum homocysteine Heparin-induced thrombocytopenia Other congenital or acquired thrombophilia Stroke (< 1 month) Elective arthroplasty Hip, pelvis, or leg fracture Acute spinal cord injury (< 1 month) Prophylaxis Regimen: Total Risk Factor Score Risk Level Prophylaxis Regimen 0-1 Low Early ambulation 2 Moderate Order ONE of the following: *Sequential Compression Device (SCD) *Heparin 5000 units SQ BID 3-4 Higher Order ONE of the following medications: *Heparin 5000 units SQ TID *Enoxaparin/Lovenox 40 mg SQ daily (WT < 150 kg, CrCl > 30 mL/min) *Enoxaparin/Lovenox 30 mg SQ daily (WT < 150 kg, CrCl > 10-29 mL/min) *Enoxaparin/Lovenox 30 mg SQ BID (WT < 150 kg, CrCl > 30 mL/min) AND/OR *Sequential Compression Device (SCD) 5 or more Highest Order ONE of the following medications: *Heparin 5000 units SQ TID (Preferred with Epidurals) *Enoxaparin/Lovenox 40 mg SQ daily (WT < 150 kg, CrCl > 30 mL/min) *Enoxaparin/Lovenox 30 mg SQ daily (WT < 150 kg, CrCl > 10-29 mL/min) *Enoxaparin/Lovenox 30 mg SQ BID (WT < 150 kg, CrCl > 30 mL/min) AND *Sequential Compression Device (SCD) Assessment and Plan - Diagnosis (1) 36 weeks gestation of Code(s): Z3A.36 - 36 weeks gestation of Status: Acute (2) Shortness of breath during Code(s): O99.89 - Other specified diseases and conditions complicating , childbirth and the puerperium; R06.02 - Shortness of breath Status: Acute Plan: Chest Xray showed RLL consolidation/trace pleural effusion Started on Rocephin/Azithromycin. CTA wnl ECHO wnl O2 sats have been 97% (3) Preeclampsia Code(s): O14.90 - Unspecified pre-eclampsia, unspecified trimester Status: Acute Plan: BPs have been creeping up. Elevated random urine PCR. Plan for repeat LTCS n AM. Will repeat PIH labs in AM. Patient has undesired fertility. Patient states she signed state tubal papers for tubal sterilzation in office around 28 weeks.
[2018-07-14] MEDS ORDERED: Labetalol HCl Inj 100 MG/20 ML Vial ONE (23:08)
[2018-07-14] MEDS ORDERED: Labetalol HCl Inj 100 MG/20 ML Vial IV.PUSH ONE ×2 (23:22→23:45)
[2018-07-14] MEDS ORDERED: *Labetalol HCl Inj 100 MG/20 ML Vial PERIprocedural Use ONLY IV.PUSH ONE (23:33)
[2018-07-15] MEDS ORDERED: Citric Acid/Sodium Citrate Liq 30 ML UDC ONE (00:19)
[2018-07-15] MEDS ORDERED: Ketorolac Inj 30 MG/ML (IVP) Vial IV.PUSH ONE (00:30)
[2018-07-15] MEDS ORDERED: Morphine Sulfate PF Inj 5 MG/10 ML Ampul ONE (00:35)
[2018-07-15] MEDS ORDERED: CEFAZOLIN ONE (00:37)
[2018-07-15] MEDS ORDERED: Labetalol HCl Inj 100 MG/20 ML Vial ONE (00:44)
[2018-07-15] MEDS ORDERED: Acetaminophen 325 MG Tablet PO PRN (02:36)
[2018-07-15] MEDS ORDERED: Zolpidem Tartrate 5 MG Tablet PO PRN (02:36)
[2018-07-15] MEDS ORDERED: Oxytocin 30 Units/500ml Premix 30 UNITS/500 ML BAG IV.SIG ONE (02:36)
[2018-07-15] MEDS ORDERED: Mag Sulf/Water 4 gm/100 ml 100 ML IV.SIG ONE ×2 (02:44→02:45)
[2018-07-15] MEDS ORDERED: hydrALAZINE HCl Inj 20 MG/ML Vial IV.PUSH PRN (02:44)
[2018-07-15] MEDS ORDERED: Mag Sulf/Water 40 gm/1000 ml 40 GM/1,000 ML BAG IV.CONT ONE (02:45)
[2018-07-15] MEDS: Mag Sulf/Water 40 gm/1000 ml 40 GM/1,000 ML BAG IV.CONT SCH ×2 (02:57→19:26)
[2018-07-15] MEDS ORDERED: ceFAZolin Inj 2,000 MG in Sodium Chlor 0.9% Inj 80 ML IV.SIG SCH (03:00)
[2018-07-15] MEDS ORDERED: Oxytocin 30 Units/500ml Premix 30 UNITS/500 ML BAG ONE (03:00)
--- NOTE | 2018-07-15 03:23 | P.OBDELI ---
Procedure Note - Pre Op Diagnosis (1) 36 weeks gestation of (2) Preeclampsia (3) Gestational diabetes (4) History of section - Post Op Diagnosis (1) 36 weeks gestation of (2) Preeclampsia (3) History of section (4) Gestational diabetes Performed by: Jean Myers MD Procedure: Repeat Low Transverse Section, Other (RIGHT SALPINGECTOMY ( Previous LEFT salpingo-ophorectomy)) Indication for Delivery: Other (SEVERE PREECLAMPSIA/ PREVIOUS C SECTION) Informed Consent Obtained: For anesthesia, For procedure Confirmed Correct: Patient, Procedure, Time-out taken Anesthesia: Spinal Medication Prior to Procedure: As documented in eMAR, Antacids, Antibiotics, IV , Antiemetics Monitoring During Procedure: Blood pressure monitoring, Pulse oximetry Urinary Catheter: Inserted using sterile technique Sterile Preparation: In usual fashion, With 2% chlorexidine (Hibiclens), With drapes to expose affected area Position: Supine with wedge to left side, Supine with wedge to right side - Operative Features Skin Incision: Pfannenstiel Uterine Incision: Low transverse w/knife / blunt ext Membranes Ruptured: Artificially Presentation: Occiput anterior Status of : Viable, Cord blood, Umbilical cord, Nursery present, Resuscitation required Placenta Delivered: Intact, Sent to pathology Estimated blood loss (mL): 700 Procedure Tolerated: Fair Maternal Complications: Other Maternal Condition: Stable Baby Condition: Stable, Fair Procedure in Detail: Patient was brought into OR and properly identified. She was positioned for spinal anesthesia which was induced without any complications. She was then positioned in dorsal supine position with slight leftward tilt. Meyers catheter was inserted under sterile technique and allowed to drain under gravity throughout the case. She was cleansed and draped in sterile fashion. After confirming adequacy of anesthesia, we used the scalpel to make an incision through the prior pfannensteil scar. Taken through subcutaneous tissue with Bovie pencil, to rectus fascia that was scored in midline and extended bilateraly using curved May[place]. Rectus fascia was then elevated using Kocker clamps and dissected off from underlying rectus muscles. Rectus muscles were bluntly and the underlying peritoneum identified. peritoneum was tented upwards with hemostats, entered sharply with [place] scissors and extended superiorly and inferiorly with careful visualization of the bladder. Bladder blade was then positioned,and vesicouterine reflection of peritoneum identified. Tented with pickups, entered with [place] and extended bilaterally using [place] Bladder flap was then created digitally, and bladder blade repositioned. Fresh scalpel used to make transverse incision over JOSE, and extended bluntly. Amniotomy with clear fluid. Female infant delivered from OA position , and shoulders delivered without any difficulty. Delayed cord clamp, and cord clamped and divided and to attending pediatricians. Uterus cleansed of all clots and debris and then exteriorized. Incision closed in three layers , the first with 0 Vicryl in continuous locking fashion, and the second of the same suture material, imbricating the first. After confirming adequacy of hemostasis at angles, the vesicouterine reflection reapproximated with 2.0 Vicryl. attention turned to tubal sterilization. Patient noted to have had previous LEFT SALPINGO-OPHORECTOMY. Right fallopian tube identified and elevated with Samantha clamp. Mesosalphinx perforated in transverse fashion with Bovie and ends clamped, ligated with plain catgut Uterus then returned to intraperitoneal location after gutters cleansed. Interceed adhesion barrier placed over incision. Parietal peritoneum closed with 2.0vicryl, and fascia with 1PDS. Subcutaneous tissue reapproximated with 2.0 Vcryl and skin closed in subcuticular fashion with 3.0 Monocryl. Dermabond applied, and pressure dressing placed over incision. - Infant: Female Female A Infant Delivery Date: 07/15/18 Delivery Time: 01:20 Weight: 2740 kg score (1 min): 7 score (5 min): 8 score (10 min): 8
[2018-07-15] MEDS ORDERED: hydrALAZINE HCl Inj 20 MG/ML Vial ONE (03:28)
[2018-07-15] MEDS ORDERED: hydrALAZINE HCl Inj 20 MG/ML Vial IV.PUSH STA (03:30)
[2018-07-15] MEDS ORDERED: hydrALAZINE HCl Inj 20 MG/ML Vial IV.PUSH ONE (03:52)
[2018-07-15] MEDS ORDERED: Naloxone Inj 0.4 MG/ML Vial IV.PUSH PRN (05:30)
[2018-07-15 06:35] LABS: Hematocrit 31.5 % (35.0-46.0); Hemoglobin 10.9 gm/dL (11.6-15.3); Mean Corpuscular HGB Conc 34.5 % (32.0-36.0); Mean Corpuscular Hemoglobin 27.8 pg (27.0-34.0); Mean Corpuscular Volume 80.6 fL (80.0-100.0); Mean Platelet Volume 8.4 fL (7.0-11.0); Platelet Count 194 th/mm3 (150-450); Red Blood Count 3.91 mil/mm3 (4.00-5.30); Red Cell Distribution Width 15.1 % (11.6-17.2); White Blood Count 16.7 th/mm3 (4.0-11.0)
[2018-07-15 06:53] LABS: Alanine Aminotransferase 32 U/L (10-53); Albumin 2.1 g/dL (3.4-5.0); Anion Gap 12 meq/L (5-15); Aspartate Aminotransferase 29 U/L (15-37); Blood Urea Nitrogen 8 mg/dL (7-18); Calcium 8.1 mg/dL (8.5-10.1); Carbon Dioxide 21.3 meq/L (21.0-32.0); Chloride 104 meq/L (98-107); Glomerular Filtration Rate Greater Than 89 mL/min (>89); Glucose,Random 123 mg/dL (74-106); Potassium 4.4 meq/L (3.5-5.1); Sodium 137 meq/L (136-145); Uric Acid 4.1 mg/dl (2.6-6.0)
[2018-07-15 07:00] LABS: Alkaline Phosphatase 150 U/L (45-117); Total Protein 6.3 g/dL (6.4-8.2)
[2018-07-15] MEDS ORDERED: Oxytocin 30 Units/500ml Premix 30 UNITS/500 ML BAG IV.SIG PRN (07:36)
[2018-07-15 08:14] LABS: Protein/Creatinine Ratio,Urine 0.48 (0.00-0.14); Total Protein,Urine Random 30.4 mg/dL (0-11.8)
[2018-07-15] MEDS: Labetalol 200 MG Tablet PO SCH ×3 (09:03→18:56)
[2018-07-15] MEDS: Enoxaparin Inj 40 MG/0.4 ML Syringe SQ SCH (09:03)
[2018-07-15] MEDS: ceFAZolin 2 GM Premix Inj 2 GM/50 ML PIGGYBACK IV.SIG SCH ×2 (09:13→18:06)
[2018-07-15 09:53] LABS: Amphetamine Urine With Conf Neg (Neg); Benzodiazepine Urine With Conf Neg (Neg); Cocaine Urine With Conf Neg (Neg); Opiates Urine With Conf Neg (Neg)
[2018-07-15 09:55] LABS: Cannabinoid Urine With Conf Neg (Neg)
--- NOTE | 2018-07-15 10:27 | P.PNOB ---
Subjective Post day: 0 Interval history: Patient had emergent repeat LTCS and right salpingectomy this AM. BPs were labile despite IV antihypertensive intervention. This morning she reports feeling well. Tolerating clear liquids. On post-delivery Mag Sulphate. Denies chest pain. Urine output satisfactory. Denies lower extremity pain. Objective Vital Signs/I&O: Vital Signs 07/14/18 13:55 07/14/18 14:00 07/14/18 14:10 Temperature 98.9 F Pulse Rate 90 87 85 Respiratory Rate 22 Blood Pressure 152/82 H 07/14/18 14:35 07/14/18 14:40 07/14/18 14:50 Temperature Pulse Rate 88 86 86 Respiratory Rate Blood Pressure 07/14/18 16:00 07/14/18 16:10 07/14/18 16:20 Temperature 99.1 F Pulse Rate 91 H 86 86 Respiratory Rate 22 Blood Pressure 178/76 H 07/14/18 16:45 07/14/18 17:25 07/14/18 17:30 Temperature 98.5 F Pulse Rate 88 80 Respiratory Rate 20 Blood Pressure 172/84 H 07/14/18 17:35 07/14/18 17:38 07/14/18 18:15 Temperature Pulse Rate 95 H 86 85 Respiratory Rate Blood Pressure 174/86 H 174/80 H 07/14/18 18:17 07/14/18 18:20 07/14/18 18:25 Temperature Pulse Rate 90 84 87 Respiratory Rate 22 Blood Pressure 165/83 H 07/14/18 18:40 07/14/18 18:50 07/14/18 18:54 Temperature Pulse Rate 85 97 H 94 H Respiratory Rate 28 H Blood Pressure 161/80 H 157/89 H 07/14/18 18:55 07/14/18 19:25 07/14/18 19:32 Temperature 99.3 F Pulse Rate 93 H 89 90 Respiratory Rate 18 Blood Pressure 151/77 H 150/86 H 142/78 H 07/14/18 20:00 07/14/18 20:01 07/14/18 20:49 Temperature Pulse Rate 95 H 91 H 87 Respiratory Rate Blood Pressure 140/68 149/89 H 07/14/18 21:15 07/14/18 21:25 07/14/18 21:31 Temperature Pulse Rate 88 82 82 Respiratory Rate Blood Pressure 160/82 H 07/14/18 21:35 07/14/18 22:05 07/14/18 22:10 Temperature Pulse Rate 84 81 89 Respiratory Rate Blood Pressure 156/77 H 07/14/18 22:25 07/14/18 23:55 07/15/18 00:00 Temperature Pulse Rate 83 81 81 Respiratory Rate Blood Pressure 182/87 H 07/15/18 00:05 07/15/18 00:20 07/15/18 02:35 Temperature 97.5 F L Pulse Rate 79 81 62 Respiratory Rate 20 Blood Pressure 181/82 H 147/78 H 07/15/18 02:53 07/15/18 03:03 07/15/18 03:11 Temperature Pulse Rate 56 L 68 Respiratory Rate 20 22 Blood Pressure 156/89 H 143/86 H 163/75 H 07/15/18 03:15 07/15/18 03:21 07/15/18 03:30 Temperature Pulse Rate 62 Respiratory Rate 16 Blood Pressure 163/76 H 167/79 H 07/15/18 03:31 07/15/18 03:34 07/15/18 03:51 Temperature Pulse Rate Respiratory Rate Blood Pressure 178/86 H 164/76 H 176/84 H 07/15/18 03:55 07/15/18 04:01 07/15/18 04:13 Temperature Pulse Rate 68 66 Respiratory Rate 16 Blood Pressure 178/83 H 134/74 130/69 07/15/18 04:17 07/15/18 04:29 07/15/18 05:10 Temperature Pulse Rate 67 65 Respiratory Rate Blood Pressure 153/70 H 143/63 H 140/82 07/15/18 05:13 07/15/18 05:15 07/15/18 05:25 Temperature 98.8 F Pulse Rate 73 Respiratory Rate 16 Blood Pressure 07/15/18 05:35 07/15/18 05:45 07/15/18 05:50 Temperature Pulse Rate 72 79 66 Respiratory Rate Blood Pressure 07/15/18 06:00 07/15/18 06:23 07/15/18 06:25 Temperature Pulse Rate 76 70 70 Respiratory Rate 18 Blood Pressure 138/68 07/15/18 06:35 07/15/18 06:55 07/15/18 07:05 Temperature Pulse Rate 70 69 66 Respiratory Rate Blood Pressure 143/89 H 07/15/18 07:15 07/15/18 07:17 07/15/18 07:25 Temperature Pulse Rate 67 74 Respiratory Rate 17 Blood Pressure 07/15/18 07:30 07/15/18 07:45 07/15/18 07:50 Temperature Pulse Rate 71 76 72 Respiratory Rate Blood Pressure 07/15/18 08:00 07/15/18 08:05 07/15/18 09:00 Temperature Pulse Rate 72 72 66 Respiratory Rate Blood Pressure 144/74 H Intake & Output 07/14/18 07/15/18 07/15/18 18:59 06:59 18:59 Intake Total 100 / 100 / 205 Balance 100 / 100 / 205 Weight 122.47 kg Intake: IV 100 / 100 / 205 Ancef Inj 5 ML @ 0 mls/hr . 5 / 5 ROUTE .STK-MED ONE Rx#:[id number] Ofirmev Inj 1,000 mg In 100 ml 100 / 100 @ 0 mls/hr IV.SIG .STK-MED ONE Rx#:[id number] Magnesium Sulfate/Water 4 gm/ 100 / 100 100 ml Premix 100 ML @ 300 mls/ hr IV.SIG ONCE ONE Rx#:[id number] Rocephin Inj 1,000 MG In NS Inj 100 / 100 100 ML @ 200 mls/hr IV.SIG Q24H KEITH Rx#:[id number] Result Diagrams: 07/15/18 06:11 07/15/18 06:11 Objective Remarks: GENERAL: Well-nourished, well-developed patient, obese CARDIOVASCULAR: Regular rate and rhythm without murmurs, gallops, or rubs. RESPIRATORY: Breath sounds equal bilaterally. No accessory muscle use. ABDOMEN/GI: Abdomen soft, non-tender. Fundus: Firm, non-tender at umbilicus. Dressing dry, appropriately tender. BS present GENITOURINARY: Light to moderate bleeding. EXTREMITIES: No cyanosis or edema, non-tender, without signs of DVT. Medications and IVs: Active Medications Acetaminophen (Tylenol) 650 mg PO Q6HR PRN PRN Reason: pain Acetaminophen (Tylenol) 650 mg PO Q6H PRN PRN Reason: PAIN SCALE 1 TO 2 Calcium Gluconate (Calcium Gluconate Inj) 1 gm IV.PUSH PRN PRN PRN Reason: Magnesium toxicity Diphenhydramine HCl (Benadryl Inj) 25 mg IV.PUSH Q6H PRN PRN Reason: MILD TO MODERATE ITCHING Stop: 07/16/18 05:29 Last Admin: 07/15/18 07:38 Dose: 25 mg Diphenhydramine HCl (Benadryl) 50 mg PO Q6H PRN PRN Reason: MILD TO MODERATE ITCHING Stop: 07/16/18 05:29 Diphtheria/Pertussis/Tetanus Vacc (Boostrix Vaccine Inj) 0.5 ml IM .ONCE ONE Stop: 07/16/18 16:01 Enoxaparin Sodium (Lovenox Inj) 40 mg SQ DAILY [facility] Last Admin: 07/15/18 09:03 Dose: 40 mg Ceftriaxone Sodium 1,000 mg/ (Sodium Chloride) 100 mls @ 200 mls/hr IV.SIG Q24H [facility] Stop: 07/16/18 15:00 Last Infusion: 07/14/18 14:35 Dose: Infused Lactated Ringer's (Lr 1000 Ml Inj) 1,000 mls @ 100 mls/hr IV.CONT .Q10H [facility] Stop: 07/16/18 03:35 Oxytocin (Pitocin 30 Units/Ns 500 Ml Premix) 30 units in 500 mls @ 100 mls/hr IV.SIG UNSCH PRN PRN Reason: Heavy bleeding Lactated Ringer's (Lr 1000 Ml Inj) 1,000 mls @ 75 mls/hr IV.CONT .[id number] [facility] Last Admin: 07/15/18 05:19 Dose: 75 mls/hr Magnesium Sulfate (Magnesium Sulfate/Water 40 Gm/1000 Ml Premix) 40 gm in 1, 000 mls @ 50 mls/hr IV.CONT Q24H [facility] Last Admin: 07/15/18 02:57 Dose: 2 gm/hr, 50 mls/hr Cefazolin Sodium/Dextrose (Ancef 2 Gm Premix Inj) 2 gm in 50 mls @ 100 mls/hr IV.SIG Q8H [facility] Stop: 07/15/18 17:29 Last Admin: 07/15/18 09:13 Dose: 100 mls/hr Ibuprofen (Motrin) 800 mg PO Q8H PRN PRN Reason: cramping Ketorolac Tromethamine (Toradol Inj) 30 mg IM Q6H PRN PRN Reason: SEE LABEL COMMENTS Labetalol HCl (Trandate) 400 mg PO TID [facility] Last Admin: 07/15/18 09:03 Dose: 400 mg Measles/Mumps/Rubella Vaccine Live (M-M-R Ii Vaccine Inj) 0.5 ml SQ .ONCE ONE Stop: 07/16/18 16:01 Methyldopa (Aldomet) 500 mg PO BID [facility] Last Admin: 07/15/18 09:03 Dose: 500 mg Miscellaneous Information ([facility] 1 each OTHER UNSCH PRN PRN Reason: SEE LABEL COMMENTS Stop: 07/16/18 05:29 Miscellaneous Information ([facility] 1 each OTHER UNSCH PRN PRN Reason: SEE LABEL COMMENTS Stop: 07/16/18 05:29 Naloxone HCl (Narcan Inj) 0.4 mg IV.PUSH UNSCH PRN PRN Reason: SEE LABEL COMMENTS Naloxone HCl (Narcan Inj) 0.4 mg IV.PUSH UNSCH PRN PRN Reason: SEE LABEL COMMENTS Stop: 07/16/18 05:29 Ondansetron HCl (Zofran Inj) 4 mg IV.PUSH Q6H PRN PRN Reason: NAUSEA OR VOMITING Oxycodone/Acetaminophen (Percocet 5/325 Mg) 1 tab PO Q4H PRN PRN Reason: PAIN SCALE 3 TO 5 Oxycodone/Acetaminophen (Percocet 5/325 Mg) 2 tab PO Q4H PRN PRN Reason: PAIN SCALE 6 TO 10 Senna/Docusate Sodium (Siria-Colace) 2 tab PO Q12H PRN PRN Reason: CONSTIPATION Simethicone (Mylicon Chew) 80 mg PO QID PRN PRN Reason: FLATULENCE Sodium Chloride (Ns Flush) 2 ml IV.FLUSH BID [facility] Last Admin: 07/15/18 09:13 Dose: Not Given Sodium Chloride (Ns Flush) 2 ml IV.FLUSH PRN PRN PRN Reason: FLUSH AFTER USING IV ACCESS Sodium Chloride (Ns Flush) 2 ml IV.FLUSH BID [facility] Last Admin: 07/15/18 09:13 Dose: Not Given Sodium Chloride (Ns Flush) 2 ml IV.FLUSH PRN PRN PRN Reason: FLUSH AFTER USING IV ACCESS Sodium Chloride (Ns Flush) 2 ml IV.FLUSH BID [facility] Last Admin: 07/15/18 09:13 Dose: Not Given Sodium Chloride (Ns Flush) 2 ml IV.FLUSH PRN PRN PRN Reason: FLUSH AFTER USING IV ACCESS Zolpidem Tartrate (Ambien) 5 mg PO HS PRN PRN Reason: INSOMNIA Assessment and Plan - Diagnosis (1) Status post delivery Code(s): Z98.891 - History of uterine scar from previous surgery Status: Acute Plan: Patient is s/p repeat LTCS and Right salpingectomy. Pain is controlled on meds. Denies nausea or vomiting Patient is on post-op Magnessium Sulphate. Meyers draining clear We plan encouraging ambulation after Magnessium Sulphate disconyinued (2) Preeclampsia Code(s): O14.90 - Unspecified pre-eclampsia, unspecified trimester Status: Acute Plan: Patient is s/p repeat LTCS for severe pre-eclampsia. BPs are stable 130-140s/80s. Denies headaches or vision changes or RUQ pain. Urine output satisfactory. No hyperreflexia. On Magnessium Sulphate for eclampsia prophylaxis. Will watch BP/ urine output. Currently on labetalol 400mg TID with parameters. PIH labs this AM wnl. Plan D/C Magnessium Sulphate after 24 hours. (3) Shortness of breath during Code(s): O99.89 - Other specified diseases and conditions complicating , childbirth and the puerperium; R06.02 - Shortness of breath Status: Acute Plan: Chest Xray showed RLL consolidation/trace pleural effusion Started on Rocephin/Azithromycin. CTA wnl ECHO wnl O2 sats have been 97% Plan to continue antibiotics for 3 days. Encourage use of incentive spirometer (4) H/O pulmonary embolus during Code(s): Z86.711 - Personal history of pulmonary embolism; Z87.59 - Personal history of other complications of , childbirth and the puerperium Status: Acute Plan: Patient had pulmonary embolus after first . Pt was not anticoagulated tis , but was on daily ASA. Currently on Lovenox .
--- NOTE | 2018-07-15 11:10 | P.CONFP ---
History of Present Illness Primary Care Provider: No Primary Care Physician <SergioDaisyArpita R - 07/15/18 11:28> No Primary Care Physician <BryJoestte - 07/15/18 11:09> Chief Complaint: shortness of breath <Josette Londono - 07/15/18 11:09> History of Present Illness: Patient examined at bedside this morning. She delivered by section overnight due to elevated blood pressures. Patient confirms some lower abdominal pain this morning but is unable to tell if she is short of breath since she has not gotten out of bed. At rest she is not short of breath. She denies any chest pain, headaches, blurry vision, leg pain. All questions were answered at bedside. <Josette Londono - 07/15/18 11:11> [facility] - Medical History Medical History: Medical History (Last Updated 07/14/18 @ 22:12 by Jean Myers MD) History of pulmonary embolism (Acute) History of pre-eclampsia (Acute) History of pulmonary embolism <BradalokArpita Maradiaga - 07/15/18 11:28> Medical History (Last Updated 07/14/18 @ 22:12 by Jean Myers MD) History of pulmonary embolism (Acute) History of pre-eclampsia (Acute) History of pulmonary embolism <ShakiracinthiaBenjamínJosette - 07/15/18 11:09> - Surgical History Surgical History: Surgical History (Last Updated 07/14/18 @ 22:12 by Jean Myers MD) History of section (Acute) <Arpita Hill - 07/15/18 11:28> Surgical History (Last Updated 07/14/18 @ 22:12 by Jean Myers MD) History of section (Acute) <Josette Londono - 07/15/18 11:09> - Family History Family History: Family History (Last Reviewed 07/14/18 @ 22:13 by Jean Myers MD) Other History of pre-eclampsia in prior , currently History of pulmonary embolism History of right salpingo-oophorectomy <Arpita Hill 07/15/18 11:28> Family History (Last Reviewed 07/14/18 @ 22:13 by Jean Myers MD) Other History of pre-eclampsia in prior , currently History of pulmonary embolism History of right salpingo-oophorectomy <ShakiraJosette vicente - 07/15/18 11:09> - Tobacco History Tobacco Use In Past 30 Days: No <ShakiraJosette vicente - 07/15/18 11:09> Smoking Status: Never smoker <ShakiraJosette vicente - 07/15/18 11:09> - Alcohol History How Often Do You Have a Drink Containing Alcohol: Never <Josette Londono - 03/25 11:09> - Travel History History of Recent Travel: No <Josette Londono - 07/15/18 11:09> Recent Travel in the [place] Within the Last 8 Weeks: No <Josette Londono - 11:09> Recent Travel Out of the Country Within the Last 8 Weeks: No <Josette Londono - 07/15/18 11:09> Medications and Allergies Allergies Allergy/AdvReac Type Severity Reaction Status Date / Time No Known Allergies Allergy Verified 07/14/18 08:18 <Arpita Hill - 07/15/18 11:28> Home Medications Medication Instructions Recorded Confirmed Type labetalol 400 mg CHEW TID 07/14/18 07/14/18 History methyldopa 500 mg PO BID 07/14/18 07/14/18 History <Arpita Hill - 07/15/18 11:28> Active Medications: Active Medications Acetaminophen (Tylenol) 650 mg PO Q6HR PRN PRN Reason: pain Acetaminophen (Tylenol) 650 mg PO Q6H PRN PRN Reason: PAIN SCALE 1 TO 2 Calcium Gluconate (Calcium Gluconate Inj) 1 gm IV.PUSH PRN PRN PRN Reason: Magnesium toxicity Diphenhydramine HCl (Benadryl Inj) 25 mg IV.PUSH Q6H PRN PRN Reason: MILD TO MODERATE ITCHING Stop: 07/16/18 05:29 Last Admin: 07/15/18 07:38 Dose: 25 mg Diphenhydramine HCl (Benadryl) 50 mg PO Q6H PRN PRN Reason: MILD TO MODERATE ITCHING Stop: 07/16/18 05:29 Diphtheria/Pertussis/Tetanus Vacc (Boostrix Vaccine Inj) 0.5 ml IM .ONCE ONE Stop: 07/16/18 16:01 Enoxaparin Sodium (Lovenox Inj) 40 mg SQ DAILY [facility] Last Admin: 07/15/18 09:03 Dose: 40 mg Ceftriaxone Sodium 1,000 mg/ (Sodium Chloride) 100 mls @ 200 mls/hr IV.SIG Q24H [facility] Stop: 07/16/18 15:00 Last Infusion: 07/14/18 14:35 Dose: Infused Lactated Ringer's (Lr 1000 Ml Inj) 1,000 mls @ 100 mls/hr IV.CONT .Q10H [facility] Stop: 07/16/18 03:35 Oxytocin (Pitocin 30 Units/Ns 500 Ml Premix) 30 units in 500 mls @ 100 mls/hr IV.SIG UNSCH PRN PRN Reason: Heavy bleeding Lactated Ringer's (Lr 1000 Ml Inj) 1,000 mls @ 75 mls/hr IV.CONT .[id number] [facility] Last Admin: 07/15/18 05:19 Dose: 75 mls/hr Magnesium Sulfate (Magnesium Sulfate/Water 40 Gm/1000 Ml Premix) 40 gm in 1, 000 mls @ 50 mls/hr IV.CONT Q24H [facility] Last Admin: 07/15/18 02:57 Dose: 2 gm/hr, 50 mls/hr Cefazolin Sodium/Dextrose (Ancef 2 Gm Premix Inj) 2 gm in 50 mls @ 100 mls/hr IV.SIG Q8H [facility] Stop: 07/15/18 17:29 Last Admin: 07/15/18 09:13 Dose: 100 mls/hr Ibuprofen (Motrin) 800 mg PO Q8H PRN PRN Reason: cramping Ketorolac Tromethamine (Toradol Inj) 30 mg IM Q6H PRN PRN Reason: SEE LABEL COMMENTS Labetalol HCl (Trandate) 400 mg PO TID [facility] Last Admin: 07/15/18 09:03 Dose: 400 mg Measles/Mumps/Rubella Vaccine Live (M-M-R Ii Vaccine Inj) 0.5 ml SQ .ONCE ONE Stop: 07/16/18 16:01 Methyldopa (Aldomet) 500 mg PO BID [facility] Last Admin: 07/15/18 09:03 Dose: 500 mg Miscellaneous Information ([facility]) 1 each OTHER UNSCH PRN PRN Reason: SEE LABEL COMMENTS Stop: 07/16/18 05:29 Miscellaneous Information ([facility] [place] [facility]) 1 each OTHER UNSCH PRN PRN Reason: SEE LABEL COMMENTS Stop: 07/16/18 05:29 Naloxone HCl (Narcan Inj) 0.4 mg IV.PUSH UNSCH PRN PRN Reason: SEE LABEL COMMENTS Naloxone HCl (Narcan Inj) 0.4 mg IV.PUSH UNSCH PRN PRN Reason: SEE LABEL COMMENTS Stop: 07/16/18 05:29 Ondansetron HCl (Zofran Inj) 4 mg IV.PUSH Q6H PRN PRN Reason: NAUSEA OR VOMITING Oxycodone/Acetaminophen (Percocet 5/325 Mg) 1 tab PO Q4H PRN PRN Reason: PAIN SCALE 3 TO 5 Oxycodone/Acetaminophen (Percocet 5/325 Mg) 2 tab PO Q4H PRN PRN Reason: PAIN SCALE 6 TO 10 Senna/Docusate Sodium (Siria-Colace) 2 tab PO Q12H PRN PRN Reason: CONSTIPATION Simethicone (Mylicon Chew) 80 mg PO QID PRN PRN Reason: FLATULENCE Sodium Chloride (Ns Flush) 2 ml IV.FLUSH BID [facility] Last Admin: 07/15/18 09:13 Dose: Not Given Sodium Chloride (Ns Flush) 2 ml IV.FLUSH PRN PRN PRN Reason: FLUSH AFTER USING IV ACCESS Sodium Chloride (Ns Flush) 2 ml IV.FLUSH BID [facility] Last Admin: 07/15/18 09:13 Dose: Not Given Sodium Chloride (Ns Flush) 2 ml IV.FLUSH PRN PRN PRN Reason: FLUSH AFTER USING IV ACCESS Sodium Chloride (Ns Flush) 2 ml IV.FLUSH BID [facility] Last Admin: 07/15/18 09:13 Dose: Not Given Sodium Chloride (Ns Flush) 2 ml IV.FLUSH PRN PRN PRN Reason: FLUSH AFTER USING IV ACCESS Zolpidem Tartrate (Ambien) 5 mg PO HS PRN PRN Reason: INSOMNIA <Arpita Hill - 07/15/18 11:28> Active Medications Acetaminophen (Tylenol) 650 mg PO Q6HR PRN PRN Reason: pain Acetaminophen (Tylenol) 650 mg PO Q6H PRN PRN Reason: PAIN SCALE 1 TO 2 Calcium Gluconate (Calcium Gluconate Inj) 1 gm IV.PUSH PRN PRN PRN Reason: Magnesium toxicity Diphenhydramine HCl (Benadryl Inj) 25 mg IV.PUSH Q6H PRN PRN Reason: MILD TO MODERATE ITCHING Stop: 07/16/18 05:29 Last Admin: 07/15/18 07:38 Dose: 25 mg Diphenhydramine HCl (Benadryl) 50 mg PO Q6H PRN PRN Reason: MILD TO MODERATE ITCHING Stop: 07/16/18 05:29 Diphtheria/Pertussis/Tetanus Vacc (Boostrix Vaccine Inj) 0.5 ml IM .ONCE ONE Stop: 07/16/18 16:01 Enoxaparin Sodium (Lovenox Inj) 40 mg SQ DAILY [facility] Last Admin: 07/15/18 09:03 Dose: 40 mg Ceftriaxone Sodium 1,000 mg/ (Sodium Chloride) 100 mls @ 200 mls/hr IV.SIG Q24H [facility] Stop: 07/16/18 15:00 Last Infusion: 07/14/18 14:35 Dose: Infused Lactated Ringer's (Lr 1000 Ml Inj) 1,000 mls @ 100 mls/hr IV.CONT .Q10H [facility] Stop: 07/16/18 03:35 Oxytocin (Pitocin 30 Units/Ns 500 Ml Premix) 30 units in 500 mls @ 100 mls/hr IV.SIG UNSCH PRN PRN Reason: Heavy bleeding Lactated Ringer's (Lr 1000 Ml Inj) 1,000 mls @ 75 mls/hr IV.CONT .[id number] [facility] Last Admin: 07/15/18 05:19 Dose: 75 mls/hr Magnesium Sulfate (Magnesium Sulfate/Water 40 Gm/1000 Ml Premix) 40 gm in 1, 000 mls @ 50 mls/hr IV.CONT Q24H [facility] Last Admin: 07/15/18 02:57 Dose: 2 gm/hr, 50 mls/hr Cefazolin Sodium/Dextrose (Ancef 2 Gm Premix Inj) 2 gm in 50 mls @ 100 mls/hr IV.SIG Q8H [facility] Stop: 07/15/18 17:29 Last Admin: 07/15/18 09:13 Dose: 100 mls/hr Ibuprofen (Motrin) 800 mg PO Q8H PRN PRN Reason: cramping Ketorolac Tromethamine (Toradol Inj) 30 mg IM Q6H PRN PRN Reason: SEE LABEL COMMENTS Labetalol HCl (Trandate) 400 mg PO TID [facility] Last Admin: 07/15/18 09:03 Dose: 400 mg Measles/Mumps/Rubella Vaccine Live (M-M-R Ii Vaccine Inj) 0.5 ml SQ .ONCE ONE Stop: 07/16/18 16:01 Methyldopa (Aldomet) 500 mg PO BID [facility] Last Admin: 07/15/18 09:03 Dose: 500 mg Miscellaneous Information ([facility] [place] [facility]) 1 each OTHER UNSCH PRN PRN Reason: SEE LABEL COMMENTS Stop: 07/16/18 05:29 Miscellaneous Information ([facility] [place] [facility]) 1 each OTHER UNSCH PRN PRN Reason: SEE LABEL COMMENTS Stop: 07/16/18 05:29 Naloxone HCl (Narcan Inj) 0.4 mg IV.PUSH UNSCH PRN PRN Reason: SEE LABEL COMMENTS Naloxone HCl (Narcan Inj) 0.4 mg IV.PUSH UNSCH PRN PRN Reason: SEE LABEL COMMENTS Stop: 07/16/18 05:29 Ondansetron HCl (Zofran Inj) 4 mg IV.PUSH Q6H PRN PRN Reason: NAUSEA OR VOMITING Oxycodone/Acetaminophen (Percocet 5/325 Mg) 1 tab PO Q4H PRN PRN Reason: PAIN SCALE 3 TO 5 Oxycodone/Acetaminophen (Percocet 5/325 Mg) 2 tab PO Q4H PRN PRN Reason: PAIN SCALE 6 TO 10 Senna/Docusate Sodium (Siria-Colace) 2 tab PO Q12H PRN PRN Reason: CONSTIPATION Simethicone (Mylicon Chew) 80 mg PO QID PRN PRN Reason: FLATULENCE Sodium Chloride (Ns Flush) 2 ml IV.FLUSH BID [facility] Last Admin: 07/15/18 09:13 Dose: Not Given Sodium Chloride (Ns Flush) 2 ml IV.FLUSH PRN PRN PRN Reason: FLUSH AFTER USING IV ACCESS Sodium Chloride (Ns Flush) 2 ml IV.FLUSH BID [facility] Last Admin: 07/15/18 09:13 Dose: Not Given Sodium Chloride (Ns Flush) 2 ml IV.FLUSH PRN PRN PRN Reason: FLUSH AFTER USING IV ACCESS Sodium Chloride (Ns Flush) 2 ml IV.FLUSH BID [facility] Last Admin: 07/15/18 09:13 Dose: Not Given Sodium Chloride (Ns Flush) 2 ml IV.FLUSH PRN PRN PRN Reason: FLUSH AFTER USING IV ACCESS Zolpidem Tartrate (Ambien) 5 mg PO HS PRN PRN Reason: INSOMNIA <Laqua,Josette - 07/15/18 11:09> Exam Vital signs: Vital Signs 07/14/18 13:55 07/14/18 14:00 07/14/18 14:10 Temperature 98.9 F Pulse Rate 90 87 85 Respiratory Rate 22 Blood Pressure 152/82 H 07/14/18 14:35 07/14/18 14:40 07/14/18 14:50 Temperature Pulse Rate 88 86 86 Respiratory Rate Blood Pressure 07/14/18 16:00 07/14/18 16:10 07/14/18 16:20 Temperature 99.1 F Pulse Rate 91 H 86 86 Respiratory Rate 22 Blood Pressure 178/76 H 07/14/18 16:45 07/14/18 17:25 07/14/18 17:30 Temperature 98.5 F Pulse Rate 88 80 Respiratory Rate 20 Blood Pressure 172/84 H 07/14/18 17:35 07/14/18 17:38 07/14/18 18:15 Temperature Pulse Rate 95 H 86 85 Respiratory Rate Blood Pressure 174/86 H 174/80 H 07/14/18 18:17 07/14/18 18:20 07/14/18 18:25 Temperature Pulse Rate 90 84 87 Respiratory Rate 22 Blood Pressure 165/83 H 07/14/18 18:40 07/14/18 18:50 07/14/18 18:54 Temperature Pulse Rate 85 97 H 94 H Respiratory Rate 28 H Blood Pressure 161/80 H 157/89 H 07/14/18 18:55 07/14/18 19:25 07/14/18 19:32 Temperature 99.3 F Pulse Rate 93 H 89 90 Respiratory Rate 18 Blood Pressure 151/77 H 150/86 H 142/78 H 07/14/18 20:00 07/14/18 20:01 07/14/18 20:49 Temperature Pulse Rate 95 H 91 H 87 Respiratory Rate Blood Pressure 140/68 149/89 H 07/14/18 21:15 07/14/18 21:25 07/14/18 21:31 Temperature Pulse Rate 88 82 82 Respiratory Rate Blood Pressure 160/82 H 07/14/18 21:35 07/14/18 22:05 07/14/18 22:10 Temperature Pulse Rate 84 81 89 Respiratory Rate Blood Pressure 156/77 H 07/14/18 22:25 07/14/18 23:55 07/15/18 00:00 Temperature Pulse Rate 83 81 81 Respiratory Rate Blood Pressure 182/87 H 07/15/18 00:05 07/15/18 00:20 07/15/18 02:35 Temperature 97.5 F L Pulse Rate 79 81 62 Respiratory Rate 20 Blood Pressure 181/82 H 147/78 H 07/15/18 02:53 07/15/18 03:03 07/15/18 03:11 Temperature Pulse Rate 56 L 68 Respiratory Rate 20 22 Blood Pressure 156/89 H 143/86 H 163/75 H 07/15/18 03:15 07/15/18 03:21 07/15/18 03:30 Temperature Pulse Rate 62 Respiratory Rate 16 Blood Pressure 163/76 H 167/79 H 07/15/18 03:31 07/15/18 03:34 07/15/18 03:51 Temperature Pulse Rate Respiratory Rate Blood Pressure 178/86 H 164/76 H 176/84 H 07/15/18 03:55 07/15/18 04:01 07/15/18 04:13 Temperature Pulse Rate 68 66 Respiratory Rate 16 Blood Pressure 178/83 H 134/74 130/69 07/15/18 04:17 07/15/18 04:29 07/15/18 05:10 Temperature Pulse Rate 67 65 Respiratory Rate Blood Pressure 153/70 H 143/63 H 140/82 07/15/18 05:13 07/15/18 05:15 07/15/18 05:25 Temperature 98.8 F Pulse Rate 73 Respiratory Rate 16 Blood Pressure 07/15/18 05:35 07/15/18 05:45 07/15/18 05:50 Temperature Pulse Rate 72 79 66 Respiratory Rate Blood Pressure 07/15/18 06:00 07/15/18 06:23 07/15/18 06:25 Temperature Pulse Rate 76 70 70 Respiratory Rate 18 Blood Pressure 138/68 07/15/18 06:35 07/15/18 06:55 07/15/18 07:05 Temperature Pulse Rate 70 69 66 Respiratory Rate Blood Pressure 143/89 H 07/15/18 07:15 07/15/18 07:17 07/15/18 07:25 Temperature Pulse Rate 67 74 Respiratory Rate 17 Blood Pressure 07/15/18 07:30 07/15/18 07:45 07/15/18 07:50 Temperature Pulse Rate 71 76 72 Respiratory Rate Blood Pressure 07/15/18 08:00 07/15/18 08:05 07/15/18 09:00 Temperature Pulse Rate 72 72 66 Respiratory Rate Blood Pressure 144/74 H 07/15/18 09:30 07/15/18 10:30 07/15/18 10:40 Temperature 98.7 F Pulse Rate 74 68 71 Respiratory Rate 18 Blood Pressure 164/98 H 07/15/18 10:45 Temperature Pulse Rate 71 Respiratory Rate Blood Pressure Intake & Output 07/14/18 07/15/18 07/15/18 18:59 06:59 18:59 Intake Total 100 / 100 205 / 205 Balance 100 / 100 205 / 205 Weight 122.47 kg Intake: IV 100 / 100 205 / 205 Ancef Inj 5 ML @ 0 mls/hr . 5 / 5 ROUTE .STK-MED ONE Rx#:[id number] Ofirmev Inj 1,000 mg In 100 ml 100 / 100 @ 0 mls/hr IV.SIG .STK-MED ONE Rx#:[id number] Magnesium Sulfate/Water 4 gm/ 100 / 100 100 ml Premix 100 ML @ 300 mls/ hr IV.SIG ONCE ONE Rx#:[id number] Rocephin Inj 1,000 MG In NS Inj 100 / 100 100 ML @ 200 mls/hr IV.SIG Q24H [facility] Rx#:[id number] <Arpita Hill R - 07/15/18 11:28> Vital Signs 07/14/18 13:55 07/14/18 14:00 07/14/18 14:10 Temperature 98.9 F Pulse Rate 90 87 85 Respiratory Rate 22 Blood Pressure 152/82 H 07/14/18 14:35 07/14/18 14:40 07/14/18 14:50 Temperature Pulse Rate 88 86 86 Respiratory Rate Blood Pressure 07/14/18 16:00 07/14/18 16:10 07/14/18 16:20 Temperature 99.1 F Pulse Rate 91 H 86 86 Respiratory Rate 22 Blood Pressure 178/76 H 07/14/18 16:45 07/14/18 17:25 07/14/18 17:30 Temperature 98.5 F Pulse Rate 88 80 Respiratory Rate 20 Blood Pressure 172/84 H 07/14/18 17:35 07/14/18 17:38 07/14/18 18:15 Temperature Pulse Rate 95 H 86 85 Respiratory Rate Blood Pressure 174/86 H 174/80 H 07/14/18 18:17 07/14/18 18:20 07/14/18 18:25 Temperature Pulse Rate 90 84 87 Respiratory Rate 22 Blood Pressure 165/83 H 07/14/18 18:40 07/14/18 18:50 07/14/18 18:54 Temperature Pulse Rate 85 97 H 94 H Respiratory Rate 28 H Blood Pressure 161/80 H 157/89 H 07/14/18 18:55 07/14/18 19:25 07/14/18 19:32 Temperature 99.3 F Pulse Rate 93 H 89 90 Respiratory Rate 18 Blood Pressure 151/77 H 150/86 H 142/78 H 07/14/18 20:00 07/14/18 20:01 07/14/18 20:49 Temperature Pulse Rate 95 H 91 H 87 Respiratory Rate Blood Pressure 140/68 149/89 H 07/14/18 21:15 07/14/18 21:25 07/14/18 21:31 Temperature Pulse Rate 88 82 82 Respiratory Rate Blood Pressure 160/82 H 07/14/18 21:35 07/14/18 22:05 07/14/18 22:10 Temperature Pulse Rate 84 81 89 Respiratory Rate Blood Pressure 156/77 H 07/14/18 22:25 07/14/18 23:55 07/15/18 00:00 Temperature Pulse Rate 83 81 81 Respiratory Rate Blood Pressure 182/87 H 07/15/18 00:05 07/15/18 00:20 07/15/18 02:35 Temperature 97.5 F L Pulse Rate 79 81 62 Respiratory Rate 20 Blood Pressure 181/82 H 147/78 H 07/15/18 02:53 07/15/18 03:03 07/15/18 03:11 Temperature Pulse Rate 56 L 68 Respiratory Rate 20 22 Blood Pressure 156/89 H 143/86 H 163/75 H 07/15/18 03:15 07/15/18 03:21 07/15/18 03:30 Temperature Pulse Rate 62 Respiratory Rate 16 Blood Pressure 163/76 H 167/79 H 07/15/18 03:31 07/15/18 03:34 07/15/18 03:51 Temperature Pulse Rate Respiratory Rate Blood Pressure 178/86 H 164/76 H 176/84 H 07/15/18 03:55 07/15/18 04:01 07/15/18 04:13 Temperature Pulse Rate 68 66 Respiratory Rate 16 Blood Pressure 178/83 H 134/74 130/69 07/15/18 04:17 07/15/18 04:29 07/15/18 05:10 Temperature Pulse Rate 67 65 Respiratory Rate Blood Pressure 153/70 H 143/63 H 140/82 07/15/18 05:13 07/15/18 05:15 07/15/18 05:25 Temperature 98.8 F Pulse Rate 73 Respiratory Rate 16 Blood Pressure 07/15/18 05:35 07/15/18 05:45 07/15/18 05:50 Temperature Pulse Rate 72 79 66 Respiratory Rate Blood Pressure 07/15/18 06:00 07/15/18 06:23 07/15/18 06:25 Temperature Pulse Rate 76 70 70 Respiratory Rate 18 Blood Pressure 138/68 07/15/18 06:35 07/15/18 06:55 07/15/18 07:05 Temperature Pulse Rate 70 69 66 Respiratory Rate Blood Pressure 143/89 H 07/15/18 07:15 07/15/18 07:17 07/15/18 07:25 Temperature Pulse Rate 67 74 Respiratory Rate 17 Blood Pressure 07/15/18 07:30 07/15/18 07:45 07/15/18 07:50 Temperature Pulse Rate 71 76 72 Respiratory Rate Blood Pressure 07/15/18 08:00 07/15/18 08:05 07/15/18 09:00 Temperature Pulse Rate 72 72 66 Respiratory Rate Blood Pressure 144/74 H 07/15/18 09:30 07/15/18 10:30 07/15/18 10:40 Temperature 98.7 F Pulse Rate 74 68 71 Respiratory Rate 18 Blood Pressure 164/98 H 07/15/18 10:45 Temperature Pulse Rate 71 Respiratory Rate Blood Pressure Intake & Output 07/14/18 07/15/18 07/15/18 18:59 06:59 18:59 Intake Total 100 / 100 Balance 100 / 100 Weight 122.47 kg Intake: IV 100 / 100 Ancef Inj 5 ML @ 0 mls/hr . 5 / 5 ROUTE .STK-MED ONE Rx#:[id number] Ofirmev Inj 1,000 mg In 100 ml 100 / 100 @ 0 mls/hr IV.SIG .STK-MED ONE Rx#:[id number] Magnesium Sulfate/Water 4 gm/ 100 / 100 100 ml Premix 100 ML @ 300 mls/ hr IV.SIG ONCE ONE Rx#:[id number] Rocephin Inj 1,000 MG In NS Inj 100 / 100 100 ML @ 200 mls/hr IV.SIG Q24H [facility] Rx#:[id number] <BryBenjamínJosette - 07/15/18 11:09> Narrative: GENERAL: Obese appearing female, laying comfortably in bed, on room air, in no acute distress. SKIN: Warm and dry. HEAD: Normocephalic. EYES: No scleral icterus. No injection or drainage. NECK: Supple, trachea midline. No JVD or lymphadenopathy. CARDIOVASCULAR: Grade 3 out of 5 systolic murmur appreciated at the left sternal border. RESPIRATORY: Breath sounds equal bilaterally. No accessory muscle use. GASTROINTESTINAL: Abdomen soft, Bowel sounds present. MUSCULOSKELETAL: Trace edema bilaterally. <Josette Londono - 07/15/18 11:09> Results - Labs Result diagrams: 07/15/18 06:11 07/15/18 06:11 <Arpita Hill - 07/15/18 11:28> Abnormal lab results 07/14/18 07/14/18 07/14/18 Range/Units 08:05 08:44 08:44 WBC (4.0-11.0) th/mm3 RBC 3.90 L (4.00-5.30) mil/mm3 Hgb 10.7 L (11.6-15.3) gm/dL Hct 31.8 L (35.0-46.0) % Chloride 108 H (98-107) meq/L Random Glucose (74-106) mg/dL Calcium (8.5-10.1) mg/dL Alkaline Phosphatase 153 H (45-117) U/L Total Protein 6.3 L (6.4-8.2) g/dL Albumin 2.3 L (3.4-5.0) g/dL U Random Total Protein (0-11.8) mg/dL Protein/Creatinin Ratio (0.00-0.14) Ur Amphetamine Screen Pos H (Neg) 07/15/18 07/15/18 07/15/18 Range/Units 06:11 06:11 07:50 WBC 16.7 H D (4.0-11.0) th/mm3 RBC 3.91 L (4.00-5.30) mil/mm3 Hgb 10.9 L (11.6-15.3) gm/dL Hct 31.5 L (35.0-46.0) % Chloride (98-107) meq/L Random Glucose 123 H (74-106) mg/dL Calcium 8.1 L D (8.5-10.1) mg/dL Alkaline Phosphatase 150 H (45-117) U/L Total Protein 6.3 L (6.4-8.2) g/dL Albumin 2.1 L (3.4-5.0) g/dL U Random Total Protein 30.4 H (0-11.8) mg/dL Protein/Creatinin Ratio 0.48 H (0.00-0.14) Ur Amphetamine Screen (Neg) Short CBC 07/14/18 07/15/18 Range/Units 08:44 06:11 WBC 9.5 16.7 H D (4.0-11.0) th/mm3 Hgb 10.7 L 10.9 L (11.6-15.3) gm/dL Hct 31.8 L 31.5 L (35.0-46.0) % Plt Count 182 194 (150-450) th/mm3 BMP 07/14/18 07/15/18 08:44 06:11 Sodium 138 137 Potassium 4.1 4.4 Chloride 108 H 104 Carbon Dioxide 21.8 21.3 BUN 9 8 Creatinine 0.73 0.69 Calcium 8.9 8.1 L D Cardiac Enzymes 07/14/18 Range/Units 14:00 Troponin I 0.02 (0.02-0.05) ng/mL Liver Function 07/14/18 07/15/18 Range/Units 08:44 06:11 Total Bilirubin 0.3 0.2 (0.2-1.0) mg/dL AST 31 29 (15-37) U/L ALT 34 32 (10-53) U/L Alkaline Phosphatase 153 H 150 H (45-117) U/L Albumin 2.3 L 2.1 L (3.4-5.0) g/dL <Arpita Hill - 07/15/18 11:28> Abnormal lab results 07/14/18 07/14/18 07/14/18 Range/Units 08:05 08:44 08:44 WBC (4.0-11.0) th/mm3 RBC 3.90 L (4.00-5.30) mil/mm3 Hgb 10.7 L (11.6-15.3) gm/dL Hct 31.8 L (35.0-46.0) % Chloride 108 H (98-107) meq/L Random Glucose (74-106) mg/dL Calcium (8.5-10.1) mg/dL Alkaline Phosphatase 153 H (45-117) U/L Total Protein 6.3 L (6.4-8.2) g/dL Albumin 2.3 L (3.4-5.0) g/dL U Random Total Protein (0-11.8) mg/dL Protein/Creatinin Ratio (0.00-0.14) Ur Amphetamine Screen Pos H (Neg) 07/15/18 07/15/18 07/15/18 Range/Units 06:11 06:11 07:50 WBC 16.7 H D (4.0-11.0) th/mm3 RBC 3.91 L (4.00-5.30) mil/mm3 Hgb 10.9 L (11.6-15.3) gm/dL Hct 31.5 L (35.0-46.0) % Chloride (98-107) meq/L Random Glucose 123 H (74-106) mg/dL Calcium 8.1 L D (8.5-10.1) mg/dL Alkaline Phosphatase 150 H (45-117) U/L Total Protein 6.3 L (6.4-8.2) g/dL Albumin 2.1 L (3.4-5.0) g/dL U Random Total Protein 30.4 H (0-11.8) mg/dL Protein/Creatinin Ratio 0.48 H (0.00-0.14) Ur Amphetamine Screen (Neg) Short CBC 07/14/18 07/15/18 Range/Units 08:44 06:11 WBC 9.5 16.7 H D (4.0-11.0) th/mm3 Hgb 10.7 L 10.9 L (11.6-15.3) gm/dL Hct 31.8 L 31.5 L (35.0-46.0) % Plt Count 182 194 (150-450) th/mm3 BMP 07/14/18 07/15/18 08:44 06:11 Sodium 138 137 Potassium 4.1 4.4 Chloride 108 H 104 Carbon Dioxide 21.8 21.3 BUN 9 8 Creatinine 0.73 0.69 Calcium 8.9 8.1 L D Cardiac Enzymes 07/14/18 Range/Units 14:00 Troponin I 0.02 (0.02-0.05) ng/mL Liver Function 07/14/18 07/15/18 Range/Units 08:44 06:11 Total Bilirubin 0.3 0.2 (0.2-1.0) mg/dL AST 31 29 (15-37) U/L ALT 34 32 (10-53) U/L Alkaline Phosphatase 153 H 150 H (45-117) U/L Albumin 2.3 L 2.1 L (3.4-5.0) g/dL <Josette Londono - 07/15/18 11:09> - Imaging Impressions Chest CTA 07/14/18 00:00 CONCLUSION: 1. There is no evidence for central pulmonary emboli 2. Trace bilateral pleural effusions larger on the right. Chest X-Ray 07/14/18 10:04 CONCLUSION: Trace pleural fluid bilaterally with suspected mild consolidation in the right lower lobe. Cardiac silhouette size at the upper limits for normal. <Arpita Hill - 07/15/18 11:28> Impressions Chest CTA 07/14/18 00:00 CONCLUSION: 1. There is no evidence for central pulmonary emboli 2. Trace bilateral pleural effusions larger on the right. Chest X-Ray 07/14/18 10:04 CONCLUSION: Trace pleural fluid bilaterally with suspected mild consolidation in the right lower lobe. Cardiac silhouette size at the upper limits for normal. <Sadiq Londonoa - 07/15/18 11:09> Assessment and Plan - Assessment (1) Shortness of breath during Code(s): O99.89 - Other specified diseases and conditions complicating , childbirth and the puerperium; R06.02 - Shortness of breath Status: Acute (2) 36 weeks gestation of Code(s): Z3A.36 - 36 weeks gestation of Status: Acute (3) Preeclampsia Code(s): O14.90 - Unspecified pre-eclampsia, unspecified trimester Status: Acute (4) Urinary tract infection Code(s): N39.0 - Urinary tract infection, site not specified Status: Acute (5) DVT prophylaxis Status: Acute (6) Nutrition, metabolism, and development symptoms Code(s): R63.8 - Other symptoms and signs concerning food and fluid intake Status: Acute <SergioArpita R - 07/15/18 11:28> (1) Shortness of breath during Code(s): O99.89 - Other specified diseases and conditions complicating , childbirth and the puerperium; R06.02 - Shortness of breath Status: Acute Plan: 37-year-old female with preeclampsia, past history of PE, presents with acute onset shortness of breath at rest. Due to patient being on bedrest, previous PE, hypercoagulable state with , left calf pain on exam and acute shortness of breath. Concern for PE -Chest x-ray concerning for right lower lobe consolidation. -CTA negative for PE or pneumonia. -DC azithromycin. Continue Rocephin for a total of 3 days for UTI. -Incentive spirometry ordered. -PT/OT after magnesium sulfate. -EKG, echo and troponin negative. -Continue on labetalol 400 mg and Aldomet 500 p.o. twice daily -Continue to monitor blood pressures. -UDS positive for amphetamines. Repeat UDS. (2) 36 weeks gestation of Code(s): Z3A.36 - 36 weeks gestation of Status: Acute Plan: Resolved status post . (3) Preeclampsia Code(s): O14.90 - Unspecified pre-eclampsia, unspecified trimester Status: Acute Plan: Continue on labetalol and methyldopa. Magnesium sulfate. (4) Urinary tract infection Code(s): N39.0 - Urinary tract infection, site not specified Status: Acute Plan: Urine positive for large leukocyte esterase. Moderate bacteria. Urine culture pending. Will start on 1 g of ceftriaxone. Treat with 3 days of ceftriaxone. (5) DVT prophylaxis Status: Acute Plan: SCD only. (6) Nutrition, metabolism, and development symptoms Code(s): R63.8 - Other symptoms and signs concerning food and fluid intake Status: Acute Plan: Fluids: p.o. intake Electrolyte: Monitor and replete as needed. Nutrition: Regular diet. <Josette Londono - 07/15/18 11:13> - Assessment and Plan Patient is clinically stable. Will be signing off from a medicine standpoint. Thank you for allowing us to take care of this pleasant patient. <Josette Londono - 07/15/18 11:12> Discussed Condition With: Dr. Hill and Dr. Hebert <Josette Londono - 07/15/18 11:09> - Attending Attestation Patient seen and dw the resident team. Patient negative for PE or cardiac concerns at this time. From medical perspective she is stable. She continues to be at risk for PE so would have a low threshold to work up complaints of SOB or calf pain in this patient. Will have PT come work with the patient to make sure she is steady and safe -- she has been on bedrest for about a month and is morbidly obese. Will sign off but please do not hesitate to re-consult if the patients medical condition changes. <Arpita Hill - 07/15/18 11:28>
[2018-07-15] MEDS: Acetaminophen 325 MG Tablet PO PRN (16:10)
--- NOTE | 2018-07-15 17:51 | ECG ---
Date Performed: 07/14/2018 Time Performed: 13:27:42 PTAGE: 37 years EKG: Sinus rhythm Since the previous tracing, no significant change noted NORMAL ECG PREVIOUS TRACING : 11/12/2013 11.22 DOCTOR: Noé Khan Interpretating Date/Time 07/15/2018 17:33:46
[2018-07-16] MEDS: Labetalol 200 MG Tablet PO SCH ×4 (06:13→18:40)
[2018-07-16] MEDS: Mag Sulf/Water 40 gm/1000 ml 40 GM/1,000 ML BAG IV.CONT SCH (06:13)
[2018-07-16] MEDS: Senna/Docusate Sodium 8.6/50 MG Tablet PO PRN ×2 (07:56→20:23)
--- NOTE | 2018-07-16 07:57 | P.PNOB ---
Subjective Post day: 2 Interval history: 37 yo POD#1. Pt doing ok this morning. Happy she is now able to move a little. She is having pain that is improved with pain medication. Denies CP, blurry vision, shortness of breath (other than baseline), nausea or vomiting. Objective Vital Signs/I&O: Vital Signs 07/15/18 08:00 07/15/18 08:05 07/15/18 09:00 Temperature Pulse Rate 72 72 66 Respiratory Rate Blood Pressure 144/74 H 07/15/18 09:30 07/15/18 10:30 07/15/18 10:40 Temperature 98.7 F Pulse Rate 74 68 71 Respiratory Rate 18 Blood Pressure 164/98 H 07/15/18 10:45 07/15/18 11:25 07/15/18 11:35 Temperature Pulse Rate 71 81 75 Respiratory Rate Blood Pressure 164/84 H 159/80 H 07/15/18 11:40 07/15/18 13:15 07/15/18 13:16 Temperature Pulse Rate 74 79 Respiratory Rate 18 Blood Pressure 175/79 H 07/15/18 13:20 07/15/18 13:25 07/15/18 13:30 Temperature Pulse Rate 83 78 75 Respiratory Rate Blood Pressure 07/15/18 13:35 07/15/18 13:40 07/15/18 13:43 Temperature Pulse Rate 81 80 Respiratory Rate 17 Blood Pressure 07/15/18 13:45 07/15/18 13:55 07/15/18 14:00 Temperature Pulse Rate 77 82 82 Respiratory Rate Blood Pressure 155/84 H 154/79 H 07/15/18 14:05 07/15/18 14:10 07/15/18 14:20 Temperature Pulse Rate 80 79 80 Respiratory Rate Blood Pressure 07/15/18 14:25 07/15/18 14:30 07/15/18 14:35 Temperature Pulse Rate 82 80 78 Respiratory Rate Blood Pressure 07/15/18 14:40 07/15/18 14:42 07/15/18 15:20 Temperature Pulse Rate 80 75 80 Respiratory Rate Blood Pressure 155/80 H 151/79 H 07/15/18 15:25 07/15/18 15:30 07/15/18 15:40 Temperature 98.5 F Pulse Rate 82 87 Respiratory Rate 16 Blood Pressure 07/15/18 15:45 07/15/18 15:50 07/15/18 15:55 Temperature Pulse Rate 83 79 84 Respiratory Rate Blood Pressure 07/15/18 16:02 07/15/18 16:15 07/15/18 16:35 Temperature Pulse Rate 84 80 82 Respiratory Rate Blood Pressure 131/72 07/15/18 16:40 07/15/18 16:45 07/15/18 17:00 Temperature Pulse Rate 80 83 81 Respiratory Rate Blood Pressure 133/77 07/15/18 17:10 07/15/18 17:20 07/15/18 17:30 Temperature Pulse Rate 83 79 71 Respiratory Rate 17 Blood Pressure 07/15/18 18:00 07/15/18 18:05 07/15/18 18:20 Temperature Pulse Rate 69 71 76 Respiratory Rate Blood Pressure 105/50 L 106/61 07/15/18 18:25 07/15/18 18:40 07/15/18 18:45 Temperature Pulse Rate 76 73 74 Respiratory Rate Blood Pressure 07/15/18 19:01 07/15/18 19:05 07/15/18 19:10 Temperature 98.4 F Pulse Rate 71 Respiratory Rate 20 Blood Pressure 110/50 L 07/15/18 19:25 07/15/18 20:01 07/15/18 20:25 Temperature Pulse Rate 71 69 Respiratory Rate Blood Pressure 119/63 07/15/18 21:01 07/15/18 21:25 07/15/18 21:45 Temperature Pulse Rate 77 Respiratory Rate 20 Blood Pressure 137/80 07/15/18 21:55 07/15/18 22:55 07/16/18 00:15 Temperature 98.3 F Pulse Rate 65 70 Respiratory Rate 20 Blood Pressure 137/83 140/68 07/16/18 00:55 07/16/18 02:55 07/16/18 03:01 Temperature Pulse Rate 75 81 Respiratory Rate Blood Pressure 155/77 H 174/88 H 07/16/18 03:12 07/16/18 03:35 07/16/18 03:55 Temperature Pulse Rate 73 Respiratory Rate 18 20 Blood Pressure 164/91 H 07/16/18 05:00 07/16/18 05:55 07/16/18 06:00 Temperature 98.7 F Pulse Rate 76 Respiratory Rate 20 Blood Pressure 156/77 H 07/16/18 07:00 07/16/18 07:07 07/16/18 07:08 Temperature Pulse Rate 74 Respiratory Rate 16 16 Blood Pressure 136/66 07/16/18 07:10 07/16/18 07:13 Temperature 98.1 F Pulse Rate 75 Respiratory Rate Blood Pressure Intake & Output 07/15/18 07/16/18 07/16/18 18:59 06:59 18:59 Intake Total 1050 / 1050 1000 / 1000 Balance 1050 / 1050 1000 / 1000 Intake: IV 1050 / 1050 1000 / 1000 LR 1000 mL Inj 1,000 ML @ 75 1000 / 1000 mls/hr IV.CONT .[id number] [facility] Rx# :[id number] Magnesium Sulfate/Water 40 gm/ 1000 / 1000 1000 ml Premix 40 gm In 1,000 ml @ 2 GM/HR 50 mls/hr IV.CONT Q24H [facility] Rx#:[id number] Ancef 2 GM Premix Inj 2 gm In 50 / 50 50 ml @ 100 mls/hr IV.SIG Q8H [facility] Rx#:[id number] Result Diagrams: 07/15/18 06:11 07/15/18 06:11 Objective Remarks: GENERAL: morbidly obese AA female. CARDIOVASCULAR: Regular rate and rhythm without murmurs, gallops, or rubs. RESPIRATORY: Breath sounds diminished at the bases. Baseline from exam. ABDOMEN/GI: Abdomen soft, tender to palpation close to the incision site. Fundus: Firm, non-tender at umbilicus. GENITOURINARY: Light to moderate bleeding. EXTREMITIES: No cyanosis or edema, non-tender, without signs of DVT. Medications and IVs: Active Medications Acetaminophen (Tylenol) 650 mg PO Q6HR PRN PRN Reason: pain Last Admin: 07/15/18 16:10 Dose: 650 mg Acetaminophen (Tylenol) 650 mg PO Q6H PRN PRN Reason: PAIN SCALE 1 TO 2 Calcium Gluconate (Calcium Gluconate Inj) 1 gm IV.PUSH PRN PRN PRN Reason: Magnesium toxicity Diphtheria/Pertussis/Tetanus Vacc (Boostrix Vaccine Inj) 0.5 ml IM .ONCE ONE Stop: 07/16/18 16:01 Enoxaparin Sodium (Lovenox Inj) 40 mg SQ DAILY [facility] Last Admin: 07/15/18 09:03 Dose: 40 mg Ceftriaxone Sodium 1,000 mg/ (Sodium Chloride) 100 mls @ 200 mls/hr IV.SIG Q24H [facility] Stop: 07/16/18 15:00 Last Admin: 07/15/18 13:00 Dose: 200 mls/hr Oxytocin (Pitocin 30 Units/Ns 500 Ml Premix) 30 units in 500 mls @ 100 mls/hr IV.SIG UNSCH PRN PRN Reason: Heavy bleeding Ibuprofen (Motrin) 800 mg PO Q8H PRN PRN Reason: cramping Last Admin: 07/16/18 06:13 Dose: 800 mg Ketorolac Tromethamine (Toradol Inj) 30 mg IM Q6H PRN PRN Reason: SEE LABEL COMMENTS Labetalol HCl (Trandate) 400 mg PO TID [facility] Last Admin: 07/16/18 06:13 Dose: 400 mg Measles/Mumps/Rubella Vaccine Live (M-M-R Ii Vaccine Inj) 0.5 ml SQ .ONCE ONE Stop: 07/16/18 16:01 Methyldopa (Aldomet) 500 mg PO BID [facility] Last Admin: 07/16/18 01:43 Dose: Not Given Naloxone HCl (Narcan Inj) 0.4 mg IV.PUSH UNSCH PRN PRN Reason: SEE LABEL COMMENTS Ondansetron HCl (Zofran Inj) 4 mg IV.PUSH Q6H PRN PRN Reason: NAUSEA OR VOMITING Oxycodone/Acetaminophen (Percocet 5/325 Mg) 1 tab PO Q4H PRN PRN Reason: PAIN SCALE 3 TO 5 Oxycodone/Acetaminophen (Percocet 5/325 Mg) 2 tab PO Q4H PRN PRN Reason: PAIN SCALE 6 TO 10 Last Admin: 07/16/18 06:12 Dose: 2 tab Senna/Docusate Sodium (Siria-Colace) 2 tab PO Q12H PRN PRN Reason: CONSTIPATION Last Admin: 07/16/18 07:56 Dose: 2 tab Simethicone (Mylicon Chew) 80 mg PO QID PRN PRN Reason: FLATULENCE Sodium Chloride (Ns Flush) 2 ml IV.FLUSH BID [facility] Last Admin: 07/16/18 01:43 Dose: Not Given Sodium Chloride (Ns Flush) 2 ml IV.FLUSH PRN PRN PRN Reason: FLUSH AFTER USING IV ACCESS Sodium Chloride (Ns Flush) 2 ml IV.FLUSH BID [facility] Last Admin: 07/16/18 01:43 Dose: Not Given Sodium Chloride (Ns Flush) 2 ml IV.FLUSH PRN PRN PRN Reason: FLUSH AFTER USING IV ACCESS Sodium Chloride (Ns Flush) 2 ml IV.FLUSH BID [facility] Last Admin: 07/16/18 01:44 Dose: Not Given Zolpidem Tartrate (Ambien) 5 mg PO HS PRN PRN Reason: INSOMNIA Assessment and Plan - Diagnosis (1) Status post delivery Code(s): Z98.891 - History of uterine scar from previous surgery Status: Acute Plan: Patient is s/p repeat LTCS and Right salpingectomy. Pain is controlled on meds. Denies nausea or vomiting S/P Magnessium for 24 hr Meyers draining clear Encourage ambulation (2) Preeclampsia Code(s): O14.90 - Unspecified pre-eclampsia, unspecified trimester Status: Acute Plan: Patient is s/p repeat LTCS for severe pre-eclampsia. BPs are stable 130-140s/80s. Denies headaches or vision changes or RUQ pain. Urine output satisfactory. No hyperreflexia. Finished 24 hr Magnessium Sulphate for eclampsia prophylaxis. Will watch BP/ urine output. Currently on labetalol 400mg TID with parameters. (3) Shortness of breath during Code(s): O99.89 - Other specified diseases and conditions complicating , childbirth and the puerperium; R06.02 - Shortness of breath Status: Acute Plan: Chest Xray showed RLL consolidation/trace pleural effusion Started on Rocephin/Azithromycin. CTA wnl ECHO wnl O2 sats have been 97% Plan to continue antibiotics for 2 days. Encourage use of incentive spirometer (4) H/O pulmonary embolus during Code(s): Z86.711 - Personal history of pulmonary embolism; Z87.59 - Personal history of other complications of , childbirth and the puerperium Status: Acute Plan: Negative CTA (5) DVT prophylaxis Status: Acute Plan: On Lovenox 40mg SQ daily (6) Nutrition, metabolism, and development symptoms Code(s): R63.8 - Other symptoms and signs concerning food and fluid intake Status: Acute Plan: Will advance to cardiac diet today.
[2018-07-16] MEDS: Enoxaparin Inj 40 MG/0.4 ML Syringe SQ SCH (08:20)
[2018-07-16] MEDS ORDERED: Measles/Mumps/Rubella Vaccine Inj 0.5 ML Vial SQ ONE (16:00)
[2018-07-16] MEDS ORDERED: Diphtheria/Tetanus/Pertussis Vaccine Inj 0.5 ML Syringe IM ONE (16:00)
[2018-07-16] MEDS: Simethicone 80 MG Chew Tablet PO PRN (20:22)
[2018-07-17] MEDS: Simethicone 80 MG Chew Tablet PO PRN ×2 (01:01→16:10)
[2018-07-17] MEDS ORDERED: Bisacodyl 10 MG Supp RECTAL ONE (02:41)
[2018-07-17] MEDS ORDERED: hydrALAZINE HCl Inj 20 MG/ML Vial IV.PUSH ONE (03:08)
[2018-07-17] MEDS ORDERED: hydrALAZINE HCl Inj 20 MG/ML Vial ONE (03:12)
[2018-07-17] MEDS ORDERED: NIFEdipine 10 MG Capsule PO STA (04:30)
[2018-07-17] MEDS ORDERED: Labetalol 200 MG Tablet PO SCH (06:00)
[2018-07-17] MEDS: Enoxaparin Inj 40 MG/0.4 ML Syringe SQ SCH (09:06)
--- NOTE | 2018-07-17 09:06 | P.PNOB ---
Subjective Post day: 3 Interval history: POD3. Pt doing well. ambulating, states she feels a lot better now after having a BM, she was having gas pain this morning. She is eating and drinking ok. Has no complains this morning, improved shortness of breath. She denies headaches, blurry vision, calf tenderness, or chest pain. Objective Vital Signs/I&O: Vital Signs 07/16/18 09:49 07/16/18 15:00 07/16/18 19:50 Temperature 98.0 F 98.9 F 98.2 F Pulse Rate 80 71 81 Respiratory Rate 18 16 22 Blood Pressure 137/71 142/71 H 186/83 H 07/16/18 20:35 07/17/18 01:50 07/17/18 02:25 Temperature 98.2 F Pulse Rate 76 74 Respiratory Rate 22 Blood Pressure 142/79 H 185/89 H 199/92 H 07/17/18 03:00 07/17/18 03:28 07/17/18 03:40 Temperature Pulse Rate 84 82 77 Respiratory Rate 28 H Blood Pressure 199/91 H 183/77 H 193/79 H 07/17/18 04:45 07/17/18 05:00 07/17/18 05:30 Temperature Pulse Rate 87 Respiratory Rate 28 H Blood Pressure 158/72 H 156/71 H 138/66 07/17/18 07:00 Temperature 98.7 F Pulse Rate 84 Respiratory Rate 18 Blood Pressure 138/77 Result Diagrams: 07/15/18 06:11 07/15/18 06:11 Objective Remarks: GENERAL: morbidly obese patient, NAD, sitting in bed CARDIOVASCULAR: Regular rate and rhythm without murmurs, gallops, or rubs. RESPIRATORY: Diminished lung sounds at based, it appears to be pt's baseline. No wheezing, or crackles ABDOMEN/GI: Obese. Abdomen soft, non-tender. Incision clean and dry. No drainage noted. Fundus: Firm, non-tender at umbilicus. GENITOURINARY: Light to moderate bleeding. EXTREMITIES: No cyanosis or edema, non-tender, without signs of DVT. Medications and IVs: Active Medications Acetaminophen (Tylenol) 650 mg PO Q6HR PRN PRN Reason: pain Last Admin: 07/15/18 16:10 Dose: 650 mg Acetaminophen (Tylenol) 650 mg PO Q6H PRN PRN Reason: PAIN SCALE 1 TO 2 Amlodipine Besylate (Norvasc) 10 mg PO DAILY [facility] Calcium Gluconate (Calcium Gluconate Inj) 1 gm IV.PUSH PRN PRN PRN Reason: Magnesium toxicity Enoxaparin Sodium (Lovenox Inj) 40 mg SQ DAILY [facility] Last Admin: 07/16/18 08:20 Dose: 40 mg Oxytocin (Pitocin 30 Units/Ns 500 Ml Premix) 30 units in 500 mls @ 100 mls/hr IV.SIG UNSCH PRN PRN Reason: Heavy bleeding Ibuprofen (Motrin) 800 mg PO Q8H PRN PRN Reason: cramping Last Admin: 07/17/18 00:49 Dose: 800 mg Ketorolac Tromethamine (Toradol Inj) 30 mg IM Q6H PRN PRN Reason: SEE LABEL COMMENTS Methyldopa (Aldomet) 500 mg PO BID [facility] Last Admin: 07/16/18 20:42 Dose: 500 mg Naloxone HCl (Narcan Inj) 0.4 mg IV.PUSH UNSCH PRN PRN Reason: SEE LABEL COMMENTS Ondansetron HCl (Zofran Inj) 4 mg IV.PUSH Q6H PRN PRN Reason: NAUSEA OR VOMITING Oxycodone/Acetaminophen (Percocet 5/325 Mg) 1 tab PO Q4H PRN PRN Reason: PAIN SCALE 3 TO 5 Last Admin: 07/17/18 04:59 Dose: 1 tab Oxycodone/Acetaminophen (Percocet 5/325 Mg) 2 tab PO Q4H PRN PRN Reason: PAIN SCALE 6 TO 10 Last Admin: 07/17/18 00:50 Dose: 2 tab Senna/Docusate Sodium (Siria-Colace) 2 tab PO Q12H PRN PRN Reason: CONSTIPATION Last Admin: 07/16/18 20:23 Dose: 2 tab Simethicone (Mylicon Chew) 80 mg PO QID PRN PRN Reason: FLATULENCE Last Admin: 07/17/18 01:01 Dose: 80 mg Sodium Chloride (Ns Flush) 2 ml IV.FLUSH BID [facility] Last Admin: 07/16/18 21:43 Dose: 2 ml Sodium Chloride (Ns Flush) 2 ml IV.FLUSH PRN PRN PRN Reason: FLUSH AFTER USING IV ACCESS Sodium Chloride (Ns Flush) 2 ml IV.FLUSH BID [facility] Last Admin: 07/16/18 23:53 Dose: Not Given Sodium Chloride (Ns Flush) 2 ml IV.FLUSH PRN PRN PRN Reason: FLUSH AFTER USING IV ACCESS Sodium Chloride (Ns Flush) 2 ml IV.FLUSH BID [facility] Last Admin: 07/16/18 23:54 Dose: Not Given Zolpidem Tartrate (Ambien) 5 mg PO HS PRN PRN Reason: INSOMNIA Assessment and Plan - Diagnosis (1) Chronic hypertension Code(s): I10 - Essential (primary) hypertension Status: Acute Plan: Pt has chronic hypertension since before . She was taking nifedipine in the past, but switched to Labetalol and Methyldopa during . After delivery pt' BP continue to be elevated on this regimen requiring the use of PRN hydralazine and PRN nifedipine. We will make adjustmenst today. Pt does not plan to breastfeed Discontinue labetalol 400mg TID Start Amlodipine 10mg qday Monitor BP through the day Will consider adding MARCELO inhibitor of HZT if unable to control BP with Amlodipine alone (2) Status post delivery Code(s): Z98.891 - History of uterine scar from previous surgery Status: Acute Plan: Patient is s/p repeat LTCS and Right salpingectomy. Pain is controlled on meds. Denies nausea or vomiting S/P Magnessium for 24 hr (07/15-07/16) Encourage ambulation (3) Preeclampsia Code(s): O14.90 - Unspecified pre-eclampsia, unspecified trimester Status: Acute Plan: Patient is s/p repeat LTCS for severe pre-eclampsia. BPs are stable 130-140s/80s. Denies headaches or vision changes or RUQ pain. Urine output satisfactory. No hyperreflexia. Finished 24 hr Magnessium Sulphate for eclampsia prophylaxis on 05/16 Discontinue labetalol 400mg TID Start Amlodipine 10mg qday Monitor BP through the day (4) Shortness of breath during Code(s): O99.89 - Other specified diseases and conditions complicating , childbirth and the puerperium; R06.02 - Shortness of breath Status: Acute Plan: Chest Xray showed RLL consolidation/trace pleural effusion Started on Rocephin/Azithromycin. CTA wnl ECHO wnl O2 sats have been 97% Received Ceftriaxone for 3 days Encourage use of incentive spirometer (5) H/O pulmonary embolus during Code(s): Z86.711 - Personal history of pulmonary embolism; Z87.59 - Personal history of other complications of , childbirth and the puerperium Status: Acute Plan: Negative CTA On Lovenox for prevention of DVT (6) DVT prophylaxis Status: Acute Plan: On Lovenox 40mg SQ daily (7) Nutrition, metabolism, and development symptoms Code(s): R63.8 - Other symptoms and signs concerning food and fluid intake Status: Acute Plan: Continue cardiac diet Po Hydration
[2018-07-17 10:42] LABS: Hematocrit 27.2 % (35.0-46.0); Hemoglobin 9.2 gm/dL (11.6-15.3); Mean Corpuscular HGB Conc 33.8 % (32.0-36.0); Mean Corpuscular Hemoglobin 27.7 pg (27.0-34.0); Mean Corpuscular Volume 82.1 fL (80.0-100.0); Mean Platelet Volume 8.3 fL (7.0-11.0); Platelet Count 188 th/mm3 (150-450); Red Blood Count 3.32 mil/mm3 (4.00-5.30); Red Cell Distribution Width 15.8 % (11.6-17.2); White Blood Count 10.7 th/mm3 (4.0-11.0)
[2018-07-17] MEDS: amLODIPine 10 MG Tablet PO SCH (10:47)
[2018-07-17 11:11] LABS: Alanine Aminotransferase 22 U/L (10-53); Anion Gap 9 meq/L (5-15); Aspartate Aminotransferase 24 U/L (15-37); Blood Urea Nitrogen 8 mg/dL (7-18); Calcium 8.2 mg/dL (8.5-10.1); Carbon Dioxide 24.7 meq/L (21.0-32.0); Chloride 104 meq/L (98-107); Glomerular Filtration Rate Greater Than 89 mL/min (>89); Glucose,Random 98 mg/dL (74-106); Potassium 3.8 meq/L (3.5-5.1); Sodium 138 meq/L (136-145)
[2018-07-17 11:13] LABS: Alkaline Phosphatase 114 U/L (45-117); Total Protein 6.2 g/dL (6.4-8.2)
[2018-07-17] MEDS ORDERED: hydroCHLOROthiazide 25 MG Tablet PO SCH (15:00)
[2018-07-17] MEDS ORDERED: Labetalol HCl Inj 100 MG/20 ML Vial IV.PUSH PRN ×2 (18:23→18:44)
[2018-07-17] MEDS ORDERED: Mag Sulf/Water 4 gm/100 ml 100 ML IV.SIG ONE (18:23)
[2018-07-17] MEDS ORDERED: Labetalol HCl Inj 100 MG/20 ML Vial ONE (18:23)
[2018-07-17] MEDS: Labetalol HCl Inj 100 MG/20 ML Vial IV.PUSH PRN ×2 (18:36→18:50)
[2018-07-17] MEDS: Mag Sulf/Water 40 gm/1000 ml 40 GM/1,000 ML BAG IV.CONT SCH (18:39)
--- NOTE | 2018-07-17 19:06 | XR ---
EXAM DATE: 07/17/2018 6:49 PM EST AGE/SEX: 37 years / Female INDICATIONS: Short of breath. CLINICAL DATA: This is the patient's subsequent encounter. Patient reports that signs and symptoms h ave been present for 3 days and indicates a pain score of 0/10. MEDICAL/SURGICAL HISTORY: None. section. [place]PAR[place]: [facility] [place]&L[place]/2018. . FINDINGS: A single AP view of the chest demonstrates the lungs to be symmetrically aerated without evidence of mass, infiltrate or effusion. Mild basilar atelectasis. The cardiomediastinal contours are unremarka ble. Osseous structures are intact. CONCLUSION: Mild basilar atelectasis. No effusion or pneumothorax. Electronically signed by: Prince Monae MD 07/17/2018 7:05 PM EST
--- NOTE | 2018-07-17 19:08 | P.PNOB ---
Subjective Post op day: 2 Interval history: Patient is now 2 days post for severe preeclampsia hypertensive crisis , blood pressures down in the mother-baby hernandez of been too high to stay there requiring IV antihypertensive therapy at this time. Blood pressures registered they are in the [id number] and this in spite of oral calcium channel frank oral diuretic and IV Lasix Objective Vital Signs/I&O: Vital Signs 07/16/18 19:50 07/16/18 20:35 07/17/18 01:50 Temperature 98.2 F 98.2 F Pulse Rate 81 76 74 Respiratory Rate 22 22 Blood Pressure 186/83 H 142/79 H 185/89 H 07/17/18 02:25 07/17/18 03:00 07/17/18 03:28 Temperature Pulse Rate 84 82 Respiratory Rate 28 H Blood Pressure 199/92 H 199/91 H 183/77 H 07/17/18 03:40 07/17/18 04:45 07/17/18 05:00 Temperature Pulse Rate 77 Respiratory Rate 28 H Blood Pressure 193/79 H 158/72 H 156/71 H 07/17/18 05:30 07/17/18 07:00 07/17/18 11:00 Temperature 98.7 F 98.9 F Pulse Rate 87 84 81 Respiratory Rate 18 18 Blood Pressure 138/66 138/77 172/88 H 07/17/18 12:00 07/17/18 13:00 07/17/18 14:00 Temperature Pulse Rate 81 90 86 Respiratory Rate 18 22 22 Blood Pressure 178/87 H 172/80 H 195/102 H 07/17/18 14:05 07/17/18 16:00 07/17/18 17:00 Temperature Pulse Rate 81 Respiratory Rate 20 Blood Pressure 162/86 H 164/88 H 189/98 H 07/17/18 18:17 07/17/18 18:30 07/17/18 18:40 Temperature Pulse Rate 105 H 92 H Respiratory Rate 18 Blood Pressure 183/89 H 184/95 H Result Diagrams: 07/17/18 10:08 07/17/18 10:08 Objective Remarks: GENERAL: Well-nourished, obese patient. CARDIOVASCULAR: Regular rate and rhythm without murmurs, gallops, or rubs. RESPIRATORY: Breath sounds equal bilaterally basilar congestion noted. No accessory muscle use. ABDOMEN/GI: Abdomen soft, tender, bowel sounds present. Incision: Clean, dry and intact. Fundus: Firm, non-tender at umbilicus. GENITOURINARY: Light to moderate bleeding. EXTREMITIES: No cyanosis 2+ edema, non-tender, without signs of DVT. Medications and IVs: Active Medications Acetaminophen (Tylenol) 650 mg PO Q6HR PRN PRN Reason: pain Last Admin: 07/15/18 16:10 Dose: 650 mg Acetaminophen (Tylenol) 650 mg PO Q6H PRN PRN Reason: PAIN SCALE 1 TO 2 Amlodipine Besylate (Norvasc) 10 mg PO DAILY [facility] Last Admin: 07/17/18 10:47 Dose: 10 mg Calcium Gluconate (Calcium Gluconate Inj) 1 gm IV.PUSH PRN PRN PRN Reason: Magnesium toxicity Calcium Gluconate (Calcium Gluconate Inj) 1 gm IV.PUSH PRN PRN PRN Reason: Magnesium toxicity Enoxaparin Sodium (Lovenox Inj) 40 mg SQ DAILY [facility] Last Admin: 07/17/18 09:06 Dose: 40 mg Hydrochlorothiazide (Hydrodiuril) 50 mg PO DAILY [facility] Last Admin: 07/17/18 14:50 Dose: 50 mg Oxytocin (Pitocin 30 Units/Ns 500 Ml Premix) 30 units in 500 mls @ 100 mls/hr IV.SIG UNSCH PRN PRN Reason: Heavy bleeding Lactated Ringer's (Lr 1000 Ml Inj) 1,000 mls @ 75 mls/hr IV.CONT .[id number] [facility] Magnesium Sulfate (Magnesium Sulfate/Water 40 Gm/1000 Ml Premix) 40 gm in 1, 000 mls @ 50 mls/hr IV.CONT Q24H [facility] Last Admin: 07/17/18 18:39 Dose: 2 gm/hr, 50 mls/hr Ibuprofen (Motrin) 800 mg PO Q8H PRN PRN Reason: cramping Last Admin: 07/17/18 09:06 Dose: 800 mg Ketorolac Tromethamine (Toradol Inj) 30 mg IM Q6H PRN PRN Reason: SEE LABEL COMMENTS Labetalol HCl (Trandate Inj) 20 mg IV.PUSH NOW PRN PRN Reason: SEE LABEL COMMENTS Labetalol HCl (Trandate Inj) 80 mg IV.PUSH NOW PRN PRN Reason: SEE LABEL COMMENTS Naloxone HCl (Narcan Inj) 0.4 mg IV.PUSH UNSCH PRN PRN Reason: SEE LABEL COMMENTS Ondansetron HCl (Zofran Inj) 4 mg IV.PUSH Q6H PRN PRN Reason: NAUSEA OR VOMITING Oxycodone/Acetaminophen (Percocet 5/325 Mg) 1 tab PO Q4H PRN PRN Reason: PAIN SCALE 3 TO 5 Last Admin: 07/17/18 14:52 Dose: 1 tab Oxycodone/Acetaminophen (Percocet 5/325 Mg) 2 tab PO Q4H PRN PRN Reason: PAIN SCALE 6 TO 10 Last Admin: 07/17/18 00:50 Dose: 2 tab Senna/Docusate Sodium (Siria-Colace) 2 tab PO Q12H PRN PRN Reason: CONSTIPATION Last Admin: 07/16/18 20:23 Dose: 2 tab Simethicone (Mylicon Chew) 80 mg PO QID PRN PRN Reason: FLATULENCE Last Admin: 07/17/18 16:10 Dose: 80 mg Sodium Chloride (Ns Flush) 2 ml IV.FLUSH BID [facility] Last Admin: 07/17/18 12:44 Dose: 2 ml Sodium Chloride (Ns Flush) 2 ml IV.FLUSH PRN PRN PRN Reason: FLUSH AFTER USING IV ACCESS Sodium Chloride (Ns Flush) 2 ml IV.FLUSH BID [facility] Last Admin: 07/17/18 09:27 Dose: Not Given Sodium Chloride (Ns Flush) 2 ml IV.FLUSH PRN PRN PRN Reason: FLUSH AFTER USING IV ACCESS Sodium Chloride (Ns Flush) 2 ml IV.FLUSH BID [facility] Last Admin: 07/17/18 09:27 Dose: Not Given Sodium Chloride (Ns Flush) 2 ml IV.FLUSH BID [facility] Sodium Chloride (Ns Flush) 2 ml IV.FLUSH PRN PRN PRN Reason: FLUSH AFTER USING IV ACCESS Zolpidem Tartrate (Ambien) 5 mg PO HS PRN PRN Reason: INSOMNIA Assessment and Plan - Diagnosis (1) Status post delivery Code(s): Z98.891 - History of uterine scar from previous surgery Status: Acute Plan: Patient is s/p repeat LTCS and Right salpingectomy. Pain is controlled on meds. Denies nausea or vomiting Patient is on post-op Magnessium Sulphate. Meyers draining clear We plan encouraging ambulation after Magnessium Sulphate disconyinued (2) Preeclampsia Code(s): O14.90 - Unspecified pre-eclampsia, unspecified trimester Status: Acute Plan: Patient is s/p repeat LTCS for severe pre-eclampsia. BPs are stable 130-140s/80s. Denies headaches or vision changes or RUQ pain. Urine output satisfactory. No hyperreflexia. On Magnessium Sulphate for eclampsia prophylaxis. Will watch BP/ urine output. Currently on labetalol 400mg TID with parameters. PIH labs this AM wnl. Plan D/C Magnessium Sulphate after 24 hours. (3) Shortness of breath during Code(s): O99.89 - Other specified diseases and conditions complicating , childbirth and the puerperium; R06.02 - Shortness of breath Status: Acute Plan: Chest Xray showed RLL consolidation/trace pleural effusion Started on Rocephin/Azithromycin. CTA wnl ECHO wnl O2 sats have been 97% Plan to continue antibiotics for 3 days. Encourage use of incentive spirometer (4) H/O pulmonary embolus during Code(s): Z86.711 - Personal history of pulmonary embolism; Z87.59 - Personal history of other complications of , childbirth and the puerperium Status: Acute Plan: Patient had pulmonary embolus after first . Pt was not anticoagulated tis , but was on daily ASA. Currently on Lovenox . (5) Hypertensive crisis Code(s): I16.9 - Hypertensive crisis, unspecified Status: Acute - Plan Plan for this postoperative patient to return to labor and delivery for IV magnesium sulfate therapy for 24 hours to prevent seizure activity, IV labetalol initially for blood pressure control. Plan to follow the hypertensive crisis algorithm as a therapeutic guide, Meyers catheterization to allow documentation diuresis per the diuretics given, chest x-ray to rule out persistent pulmonary edema
[2018-07-17] MEDS ORDERED: NIFEdipine 10 MG Capsule PO PRN (23:41)
[2018-07-18] MEDS ORDERED: NIFEdipine 10 MG Capsule PO ONE ×3 (02:45→06:15)
[2018-07-18 05:50] LABS: Hemoglobin 10.4 gm/dL (11.6-15.3); Mean Corpuscular HGB Conc 33.6 % (32.0-36.0); Mean Corpuscular Hemoglobin 27.4 pg (27.0-34.0); Mean Corpuscular Volume 81.7 fL (80.0-100.0); Mean Platelet Volume 8.2 fL (7.0-11.0); Platelet Count 216 th/mm3 (150-450); Red Cell Distribution Width 15.7 % (11.6-17.2); White Blood Count 9.4 th/mm3 (4.0-11.0)
[2018-07-18 06:36] LABS: Albumin 2.3 g/dL (3.4-5.0); Uric Acid 5.3 mg/dl (2.6-6.0)
[2018-07-18] MEDS: Enoxaparin Inj 40 MG/0.4 ML Syringe SQ SCH (08:08)
[2018-07-18] MEDS: amLODIPine 10 MG Tablet PO SCH (08:08)
[2018-07-18] MEDS: Simethicone 80 MG Chew Tablet PO PRN (08:08)
[2018-07-18] MEDS ORDERED: Labetalol 200 MG Tablet PO SCH (09:00)
[2018-07-18] MEDS: Senna/Docusate Sodium 8.6/50 MG Tablet PO PRN ×2 (09:36→21:38)
[2018-07-18] MEDS ORDERED: Morphine Inj 4 MG/ML Vial IV.PUSH PRN (09:39)
--- NOTE | 2018-07-18 09:41 | P.PNOB ---
Subjective Post day: 4 Interval history: POD#4. Pt being tearful this morning, worried that something will happen to her. We discussed the fact we are working on controlling her BP and will let her go home once stable. This morning she complains of leg cramps, and chest pain. Her pain is substernal, she believes is associated with gas and immobility. She describes it as "pressure", it does not radiate anywhere. Pt reports improvement in SOB, but has a mild headache. Discussed it might be related to her high blood pressure vs medication side effect. She denies changes on her vision, double vision, or blurry vision. Objective Vital Signs/I&O: Vital Signs 07/17/18 11:00 07/17/18 12:00 07/17/18 13:00 Temperature 98.9 F Pulse Rate 81 81 90 Respiratory Rate 18 18 22 Blood Pressure 172/88 H 178/87 H 172/80 H 07/17/18 14:00 07/17/18 14:05 07/17/18 16:00 Temperature Pulse Rate 86 81 Respiratory Rate 22 20 Blood Pressure 195/102 H 162/86 H 164/88 H 07/17/18 17:00 07/17/18 18:17 07/17/18 18:30 Temperature Pulse Rate 105 H Respiratory Rate 18 Blood Pressure 189/98 H 183/89 H 07/17/18 18:40 07/17/18 19:05 07/17/18 19:10 Temperature Pulse Rate 92 H 93 H 88 Respiratory Rate Blood Pressure 184/95 H 187/89 H 07/17/18 19:20 07/17/18 19:21 07/17/18 20:00 Temperature 98.3 F Pulse Rate 85 Respiratory Rate 20 18 Blood Pressure 174/76 H 07/17/18 20:01 07/17/18 20:14 07/17/18 20:19 Temperature Pulse Rate 84 85 83 Respiratory Rate Blood Pressure 170/83 H 156/79 H 152/74 H 07/17/18 20:31 07/17/18 21:01 07/17/18 22:00 Temperature Pulse Rate 86 79 Respiratory Rate 20 20 Blood Pressure 153/82 H 158/79 H 07/17/18 22:01 07/17/18 23:02 07/17/18 23:04 Temperature 98.4 F Pulse Rate 84 86 Respiratory Rate 18 22 Blood Pressure 170/77 H 167/78 H 07/17/18 23:33 07/17/18 23:46 07/18/18 00:01 Temperature Pulse Rate 74 82 85 Respiratory Rate 30 H 28 H Blood Pressure 173/87 H 169/77 H 149/64 H 07/18/18 00:32 07/18/18 01:01 07/18/18 02:00 Temperature Pulse Rate 84 85 Respiratory Rate 24 22 Blood Pressure 154/68 H 156/66 H 07/18/18 02:01 07/18/18 03:00 07/18/18 03:01 Temperature 98.1 F Pulse Rate 84 Respiratory Rate 22 Blood Pressure 151/76 H 07/18/18 03:02 07/18/18 04:00 07/18/18 04:03 Temperature Pulse Rate 76 84 Respiratory Rate 22 Blood Pressure 152/73 H 164/89 H 07/18/18 05:00 07/18/18 05:01 07/18/18 05:20 Temperature Pulse Rate 83 79 Respiratory Rate 22 Blood Pressure 169/83 H 174/90 H 07/18/18 05:47 07/18/18 06:00 07/18/18 06:03 Temperature Pulse Rate 94 H 91 H Respiratory Rate 22 Blood Pressure 161/68 H 159/69 H 07/18/18 06:25 07/18/18 07:15 07/18/18 07:30 Temperature 97.9 F Pulse Rate 91 H 95 H 97 H Respiratory Rate 20 Blood Pressure 174/91 H 159/75 H 07/18/18 07:35 07/18/18 07:40 07/18/18 07:45 Temperature Pulse Rate 90 89 86 Respiratory Rate Blood Pressure 07/18/18 07:50 07/18/18 07:55 07/18/18 08:35 Temperature Pulse Rate 85 90 95 H Respiratory Rate Blood Pressure 173/84 H 07/18/18 08:40 07/18/18 08:55 Temperature Pulse Rate 97 H 102 H Respiratory Rate Blood Pressure 168/92 H Result Diagrams: 07/18/18 04:48 07/17/18 10:08 Objective Remarks: GENERAL: Obese AA female, tearful, in NAD CARDIOVASCULAR: Regular rate and rhythm without murmurs, gallops, or rubs. RESPIRATORY: Breath sounds equal bilaterally. No accessory muscle use. ABDOMEN/GI: Abdomen soft, non-tender. Urinary catheter draining yellow farrah urine. EXTREMITIES: No cyanosis or edema, non-tender, without signs of DVT. Medications and IVs: Active Medications Acetaminophen (Tylenol) 650 mg PO Q6HR PRN PRN Reason: pain Last Admin: 07/15/18 16:10 Dose: 650 mg Acetaminophen (Tylenol) 650 mg PO Q6H PRN PRN Reason: PAIN SCALE 1 TO 2 Amlodipine Besylate (Norvasc) 10 mg PO DAILY [facility] Last Admin: 07/18/18 08:08 Dose: 10 mg Calcium Gluconate (Calcium Gluconate Inj) 1 gm IV.PUSH PRN PRN PRN Reason: Magnesium toxicity Calcium Gluconate (Calcium Gluconate Inj) 1 gm IV.PUSH PRN PRN PRN Reason: Magnesium toxicity Enoxaparin Sodium (Lovenox Inj) 40 mg SQ DAILY [facility] Last Admin: 07/18/18 08:08 Dose: 40 mg Hydrochlorothiazide (Hydrodiuril) 50 mg PO DAILY [facility] Last Admin: 07/18/18 08:08 Dose: 50 mg Oxytocin (Pitocin 30 Units/Ns 500 Ml Premix) 30 units in 500 mls @ 100 mls/hr IV.SIG UNSCH PRN PRN Reason: Heavy bleeding Lactated Ringer's (Lr 1000 Ml Inj) 1,000 mls @ 75 mls/hr IV.CONT .[id number] [facility] Last Admin: 07/18/18 08:36 Dose: 75 mls/hr Magnesium Sulfate (Magnesium Sulfate/Water 40 Gm/1000 Ml Premix) 40 gm in 1, 000 mls @ 50 mls/hr IV.CONT Q24H [facility] Last Admin: 07/17/18 18:39 Dose: 2 gm/hr, 50 mls/hr Ibuprofen (Motrin) 800 mg PO Q8H PRN PRN Reason: cramping Last Admin: 07/17/18 09:06 Dose: 800 mg Ketorolac Tromethamine (Toradol Inj) 30 mg IM Q6H PRN PRN Reason: SEE LABEL COMMENTS Labetalol HCl (Trandate Inj) 20 mg IV.PUSH NOW PRN PRN Reason: SEE LABEL COMMENTS Labetalol HCl (Trandate) 400 mg PO BID [facility] Last Admin: 07/18/18 09:35 Dose: 400 mg Morphine Sulfate (Morphine Inj) 4 mg IV.PUSH Q4H PRN PRN Reason: back pain due to urosepsis Naloxone HCl (Narcan Inj) 0.4 mg IV.PUSH UNSCH PRN PRN Reason: SEE LABEL COMMENTS Nifedipine (Procardia) 20 mg PO NOW PRN PRN Reason: SEE LABEL COMMENTS Nifedipine (Procardia) 20 mg PO NOW PRN PRN Reason: SEE LABEL COMMENTS Ondansetron HCl (Zofran Inj) 4 mg IV.PUSH Q6H PRN PRN Reason: NAUSEA OR VOMITING Oxycodone/Acetaminophen (Percocet 5/325 Mg) 1 tab PO Q4H PRN PRN Reason: PAIN SCALE 3 TO 5 Last Admin: 07/18/18 05:25 Dose: 1 tab Oxycodone/Acetaminophen (Percocet 5/325 Mg) 2 tab PO Q4H PRN PRN Reason: PAIN SCALE 6 TO 10 Last Admin: 07/17/18 22:39 Dose: 2 tab Senna/Docusate Sodium (Siria-Colace) 2 tab PO Q12H PRN PRN Reason: CONSTIPATION Last Admin: 07/18/18 09:36 Dose: 2 tab Simethicone (Mylicon Chew) 80 mg PO QID PRN PRN Reason: FLATULENCE Last Admin: 07/18/18 08:08 Dose: 80 mg Sodium Chloride (Ns Flush) 2 ml IV.FLUSH BID [facility] Last Admin: 07/17/18 12:44 Dose: 2 ml Sodium Chloride (Ns Flush) 2 ml IV.FLUSH PRN PRN PRN Reason: FLUSH AFTER USING IV ACCESS Sodium Chloride (Ns Flush) 2 ml IV.FLUSH BID [facility] Last Admin: 07/17/18 09:27 Dose: Not Given Sodium Chloride (Ns Flush) 2 ml IV.FLUSH PRN PRN PRN Reason: FLUSH AFTER USING IV ACCESS Sodium Chloride (Ns Flush) 2 ml IV.FLUSH BID [facility] Last Admin: 07/17/18 09:27 Dose: Not Given Sodium Chloride (Ns Flush) 2 ml IV.FLUSH BID [facility] Last Admin: 07/17/18 23:17 Dose: Not Given Sodium Chloride (Ns Flush) 2 ml IV.FLUSH PRN PRN PRN Reason: FLUSH AFTER USING IV ACCESS Zolpidem Tartrate (Ambien) 5 mg PO HS PRN PRN Reason: INSOMNIA Assessment and Plan - Diagnosis (1) Chronic hypertension Code(s): I10 - Essential (primary) hypertension Status: Acute Plan: Pt has chronic hypertension since before . She was taking nifedipine in the past, but switched to Labetalol and Methyldopa during . Yesterday pt's BP were very difficult to control in the 188s-190s systolic. Pt was restarted on Magnesium for 24 hrs and received Lasix with urine output of over 5L Restart labetalol 400mg TID Continue Amlodipine 10mg qday Continue HCTZ 50mg qday Monitor BP closely through the day (2) Status post delivery Code(s): Z98.891 - History of uterine scar from previous surgery Status: Acute Plan: Patient is s/p repeat LTCS and Right salpingectomy. Pain is controlled on meds. Denies nausea or vomiting S/P Magnesium for 24 hr (07/15-07/16) Magnesium restarted (07/17-07/19) Will be dc this evening around 6pm (3) Preeclampsia Code(s): O14.90 - Unspecified pre-eclampsia, unspecified trimester Status: Acute Plan: Patient is s/p repeat LTCS for severe pre-eclampsia. BPs are stable 130-140s/80s. Denies headaches or vision changes or RUQ pain. Urine output satisfactory. No hyperreflexia. Finished 24 hr Magnesium Sulphate for eclampsia prophylaxis on 05/16 Restarted magnesium yesterday evening Restart labetalol 400mg TID Monitor BP through the day (4) Chest pain Code(s): R07.9 - Chest pain, unspecified Status: Acute Plan: Substernal chest pain that comes and goes. This morning feels like "pressure" on her chest. Does not radiate anywhere. Likely gas related s/t CS, indigestion, but NV needs to be considered. - Stat troponin - Stat EKG (5) Shortness of breath during Code(s): O99.89 - Other specified diseases and conditions complicating , childbirth and the puerperium; R06.02 - Shortness of breath Status: Acute Plan: Chest Xray showed RLL consolidation/trace pleural effusion Started on Rocephin/Azithromycin. CTA wnl ECHO wnl O2 sats have been 97% s/p Ceftriaxone for 3 days Encourage use of incentive spirometer Improved today, after 5L of urine output due to Lasixs. (6) H/O pulmonary embolus during Code(s): Z86.711 - Personal history of pulmonary embolism; Z87.59 - Personal history of other complications of , childbirth and the puerperium Status: Acute Plan: Negative CTA On Lovenox for prevention of DVT (7) DVT prophylaxis Status: Acute Plan: On Lovenox 40mg SQ daily (8) Nutrition, metabolism, and development symptoms Code(s): R63.8 - Other symptoms and signs concerning food and fluid intake Status: Acute Plan: FEN: IV LR while on magnesium, and PO hydration. Will check electrolytes this morning and replace as needed. Continue cardiac diet.
--- NOTE | 2018-07-18 10:21 | ECG ---
Date Performed: 07/18/2018 Time Performed: 10:06:33 PTAGE: 37 years EKG: Sinus rhythm NORMAL ECG PREVIOUS TRACING : 07/14/2018 13.27 DOCTOR: Jacky Liz Interpretating Date/Time 07/18/2018 10:19:28
[2018-07-18 11:35] LABS: Anion Gap 9 meq/L (5-15); Blood Urea Nitrogen 8 mg/dL (7-18); Calcium 8.2 mg/dL (8.5-10.1); Carbon Dioxide 27.1 meq/L (21.0-32.0); Chloride 97 meq/L (98-107); Glomerular Filtration Rate Greater Than 89 mL/min (>89); Glucose,Random 124 mg/dL (74-106); Potassium 3.7 meq/L (3.5-5.1); Sodium 133 meq/L (136-145)
--- NOTE | 2018-07-18 12:24 | P.PNOB ---
Subjective Post day: 4 Objective Vital Signs/I&O: Vital Signs 07/17/18 13:00 07/17/18 14:00 07/17/18 14:05 Temperature Pulse Rate 90 86 Respiratory Rate 22 22 Blood Pressure 172/80 H 195/102 H 162/86 H 07/17/18 16:00 07/17/18 17:00 07/17/18 18:17 Temperature Pulse Rate 81 Respiratory Rate 20 18 Blood Pressure 164/88 H 189/98 H 07/17/18 18:30 07/17/18 18:40 07/17/18 19:05 Temperature Pulse Rate 105 H 92 H 93 H Respiratory Rate Blood Pressure 183/89 H 184/95 H 187/89 H 07/17/18 19:10 07/17/18 19:20 07/17/18 19:21 Temperature 98.3 F Pulse Rate 88 85 Respiratory Rate 20 Blood Pressure 174/76 H 07/17/18 20:00 07/17/18 20:01 07/17/18 20:14 Temperature Pulse Rate 84 85 Respiratory Rate 18 Blood Pressure 170/83 H 156/79 H 07/17/18 20:19 07/17/18 20:31 07/17/18 21:01 Temperature Pulse Rate 83 86 79 Respiratory Rate 20 Blood Pressure 152/74 H 153/82 H 158/79 H 07/17/18 22:00 07/17/18 22:01 07/17/18 23:02 Temperature 98.4 F Pulse Rate 84 Respiratory Rate 20 18 Blood Pressure 170/77 H 07/17/18 23:04 07/17/18 23:33 07/17/18 23:46 Temperature Pulse Rate 86 74 82 Respiratory Rate 22 30 H Blood Pressure 167/78 H 173/87 H 169/77 H 07/18/18 00:01 07/18/18 00:32 07/18/18 01:01 Temperature Pulse Rate 85 84 85 Respiratory Rate 28 H 24 Blood Pressure 149/64 H 154/68 H 156/66 H 07/18/18 02:00 07/18/18 02:01 07/18/18 03:00 Temperature 98.1 F Pulse Rate 84 Respiratory Rate 22 Blood Pressure 151/76 H 07/18/18 03:01 07/18/18 03:02 07/18/18 04:00 Temperature Pulse Rate 76 Respiratory Rate 22 22 Blood Pressure 152/73 H 07/18/18 04:03 07/18/18 05:00 07/18/18 05:01 Temperature Pulse Rate 84 83 Respiratory Rate 22 Blood Pressure 164/89 H 169/83 H 07/18/18 05:20 07/18/18 05:47 07/18/18 06:00 Temperature Pulse Rate 79 94 H 91 H Respiratory Rate Blood Pressure 174/90 H 161/68 H 159/69 H 07/18/18 06:03 07/18/18 06:25 07/18/18 07:15 Temperature 97.9 F Pulse Rate 91 H 95 H Respiratory Rate 22 20 Blood Pressure 174/91 H 07/18/18 07:30 07/18/18 07:35 07/18/18 07:40 Temperature Pulse Rate 97 H 90 89 Respiratory Rate Blood Pressure 159/75 H 07/18/18 07:45 07/18/18 07:50 07/18/18 07:55 Temperature Pulse Rate 86 85 90 Respiratory Rate Blood Pressure 07/18/18 08:35 07/18/18 08:40 07/18/18 08:55 Temperature Pulse Rate 95 H 97 H 102 H Respiratory Rate Blood Pressure 173/84 H 168/92 H 07/18/18 09:55 07/18/18 10:05 07/18/18 10:25 Temperature Pulse Rate 100 H 96 H 95 H Respiratory Rate Blood Pressure 147/83 H 07/18/18 10:35 07/18/18 10:41 07/18/18 10:45 Temperature Pulse Rate 89 88 89 Respiratory Rate 18 Blood Pressure 136/68 07/18/18 10:50 07/18/18 10:55 07/18/18 11:10 Temperature Pulse Rate 90 91 H 90 Respiratory Rate Blood Pressure 07/18/18 12:10 Temperature Pulse Rate 91 H Respiratory Rate 16 Blood Pressure 139/68 Result Diagrams: 07/18/18 04:48 07/18/18 10:01 Objective Remarks: GENERAL: Well-nourished, well-developed patient, morbidly obese CARDIOVASCULAR: Regular rate and rhythm without murmurs, gallops, or rubs. RESPIRATORY: Breath sounds equal bilaterally. No accessory muscle use.- Spirometer use to 1500 ABDOMEN/GI: Abdomen soft, non-tender, obese dressing dry Fundus: Firm, non-tender at umbilicus. GENITOURINARY: Minimal lochia EXTREMITIES: No cyanosis or edema, non-tender, without signs of DVT. Medications and IVs: Active Medications Acetaminophen (Tylenol) 650 mg PO Q6HR PRN PRN Reason: pain Last Admin: 07/15/18 16:10 Dose: 650 mg Acetaminophen (Tylenol) 650 mg PO Q6H PRN PRN Reason: PAIN SCALE 1 TO 2 Amlodipine Besylate (Norvasc) 10 mg PO DAILY [facility] Last Admin: 07/18/18 08:08 Dose: 10 mg Calcium Gluconate (Calcium Gluconate Inj) 1 gm IV.PUSH PRN PRN PRN Reason: Magnesium toxicity Calcium Gluconate (Calcium Gluconate Inj) 1 gm IV.PUSH PRN PRN PRN Reason: Magnesium toxicity Enoxaparin Sodium (Lovenox Inj) 60 mg SQ DAILY [facility] Hydrochlorothiazide (Hydrodiuril) 50 mg PO DAILY [facility] Last Admin: 07/18/18 08:08 Dose: 50 mg Oxytocin (Pitocin 30 Units/Ns 500 Ml Premix) 30 units in 500 mls @ 100 mls/hr IV.SIG UNSCH PRN PRN Reason: Heavy bleeding Lactated Ringer's (Lr 1000 Ml Inj) 1,000 mls @ 75 mls/hr IV.CONT .[id number] [facility] Last Admin: 07/18/18 08:36 Dose: 75 mls/hr Magnesium Sulfate (Magnesium Sulfate/Water 40 Gm/1000 Ml Premix) 40 gm in 1, 000 mls @ 50 mls/hr IV.CONT Q24H [facility] Last Admin: 07/17/18 18:39 Dose: 2 gm/hr, 50 mls/hr Ibuprofen (Motrin) 800 mg PO Q8H PRN PRN Reason: cramping Last Admin: 07/17/18 09:06 Dose: 800 mg Ketorolac Tromethamine (Toradol Inj) 30 mg IM Q6H PRN PRN Reason: SEE LABEL COMMENTS Labetalol HCl (Trandate Inj) 20 mg IV.PUSH NOW PRN PRN Reason: SEE LABEL COMMENTS Labetalol HCl (Trandate) 400 mg PO BID [facility] Last Admin: 07/18/18 09:35 Dose: 400 mg Morphine Sulfate (Morphine Inj) 4 mg IV.PUSH Q4H PRN PRN Reason: back pain due to urosepsis Naloxone HCl (Narcan Inj) 0.4 mg IV.PUSH UNSCH PRN PRN Reason: SEE LABEL COMMENTS Nifedipine (Procardia) 20 mg PO NOW PRN PRN Reason: SEE LABEL COMMENTS Nifedipine (Procardia) 20 mg PO NOW PRN PRN Reason: SEE LABEL COMMENTS Ondansetron HCl (Zofran Inj) 4 mg IV.PUSH Q6H PRN PRN Reason: NAUSEA OR VOMITING Oxycodone/Acetaminophen (Percocet 5/325 Mg) 1 tab PO Q4H PRN PRN Reason: PAIN SCALE 3 TO 5 Last Admin: 07/18/18 05:25 Dose: 1 tab Oxycodone/Acetaminophen (Percocet 5/325 Mg) 2 tab PO Q4H PRN PRN Reason: PAIN SCALE 6 TO 10 Last Admin: 07/18/18 11:56 Dose: 2 tab Senna/Docusate Sodium (Siria-Colace) 2 tab PO Q12H PRN PRN Reason: CONSTIPATION Last Admin: 07/18/18 09:36 Dose: 2 tab Simethicone (Mylicon Chew) 80 mg PO QID PRN PRN Reason: FLATULENCE Last Admin: 07/18/18 08:08 Dose: 80 mg Sodium Chloride (Ns Flush) 2 ml IV.FLUSH BID [facility] Last Admin: 07/18/18 11:41 Dose: Not Given Sodium Chloride (Ns Flush) 2 ml IV.FLUSH PRN PRN PRN Reason: FLUSH AFTER USING IV ACCESS Sodium Chloride (Ns Flush) 2 ml IV.FLUSH BID [facility] Last Admin: 07/18/18 11:42 Dose: Not Given Sodium Chloride (Ns Flush) 2 ml IV.FLUSH PRN PRN PRN Reason: FLUSH AFTER USING IV ACCESS Sodium Chloride (Ns Flush) 2 ml IV.FLUSH BID [facility] Last Admin: 07/18/18 11:42 Dose: Not Given Sodium Chloride (Ns Flush) 2 ml IV.FLUSH BID [facility] Last Admin: 07/18/18 11:42 Dose: Not Given Sodium Chloride (Ns Flush) 2 ml IV.FLUSH PRN PRN PRN Reason: FLUSH AFTER USING IV ACCESS Zolpidem Tartrate (Ambien) 5 mg PO HS PRN PRN Reason: INSOMNIA Assessment and Plan - Diagnosis (1) Status post delivery Code(s): Z98.891 - History of uterine scar from previous surgery Status: Acute Plan: Postoperative day #4 BP improving-currently on 3 antihypertensive meds Noted to have adequate diuresis however secondary to cardiomegaly second dose of Lasix given Plan to increase spirometry use patient educated by MD Patient is to be out of bed to chair regardless of her mag status at this time to decrease the incidence of DVT PE or thromboembolic phenomenon Increase Lovenox from 40 to 60 mg daily Physical therapy consulted and seen, also patient counseled on active range of motion of lower extremities (2) Preeclampsia Code(s): O14.90 - Unspecified pre-eclampsia, unspecified trimester Status: Acute Plan: BP is improving symptomatology improving although based on her studies long- term sequelae-moderate left ventricular centric hypertrophy Cardiomegaly seen on CT (3) Shortness of breath during Code(s): O99.89 - Other specified diseases and conditions complicating , childbirth and the puerperium; R06.02 - Shortness of breath Status: Acute Plan: Clinically improving, procalcitonin no signs of pneumonia, continues spirometer use and ambulate as soon as possible at least today out of bed to chair (4) H/O pulmonary embolus during Code(s): Z86.711 - Personal history of pulmonary embolism; Z87.59 - Personal history of other complications of , childbirth and the puerperium Status: Acute Plan: Patient had pulmonary embolus after first . Pt was not anticoagulated tis , but was on daily ASA. Currently on Lovenox . 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
[2018-07-18] MEDS: Mag Sulf/Water 40 gm/1000 ml 40 GM/1,000 ML BAG IV.CONT SCH (15:28)
[2018-07-18] MEDS: Labetalol 200 MG Tablet PO SCH (20:10)
[2018-07-19] MEDS: Mag Sulf/Water 40 gm/1000 ml 40 GM/1,000 ML BAG IV.CONT SCH (01:15)
[2018-07-19] MEDS ORDERED: Labetalol HCl Inj 100 MG/20 ML Vial IV.PUSH ONE (07:00)
[2018-07-19] MEDS ORDERED: Bisacodyl 10 MG Supp RECTAL PRN (08:59)
[2018-07-19] MEDS: Labetalol 200 MG Tablet PO SCH (09:22)
[2018-07-19] MEDS: amLODIPine 10 MG Tablet PO SCH (09:22)
[2018-07-19] MEDS: Enoxaparin Inj 60 MG/0.6 ML Syringe SQ SCH (09:22)
--- NOTE | 2018-07-19 09:27 | P.PNOB ---
Subjective Post day: 4 Interval history: POD4. Pt is tearful again today due to her BP not being controlled. We discussed several options regarding treatment and a Medicine team coming on board to help. She is feeling better and no SOB this morning, however complaining of constipation and bloating. She is also frustrated she is unable to move that much, she would like to walk and for her to use the bathroom alone. She denies headaches, CP, SOB, eating and drinking ok. Objective Vital Signs/I&O: Vital Signs 07/18/18 09:55 07/18/18 10:05 07/18/18 10:25 Temperature Pulse Rate 100 H 96 H 95 H Respiratory Rate Blood Pressure 147/83 H Pulse Oximetry 07/18/18 10:35 07/18/18 10:41 07/18/18 10:45 Temperature Pulse Rate 89 88 89 Respiratory Rate 18 Blood Pressure 136/68 Pulse Oximetry 07/18/18 10:50 07/18/18 10:55 07/18/18 11:10 Temperature Pulse Rate 90 91 H 90 Respiratory Rate Blood Pressure Pulse Oximetry 07/18/18 12:10 07/18/18 12:55 07/18/18 13:55 Temperature Pulse Rate 91 H 95 H 90 Respiratory Rate 16 16 Blood Pressure 139/68 133/57 L Pulse Oximetry 07/18/18 14:00 07/18/18 14:01 07/18/18 14:05 Temperature Pulse Rate 80 77 77 Respiratory Rate Blood Pressure 138/64 Pulse Oximetry 07/18/18 14:35 07/18/18 14:55 07/18/18 15:19 Temperature Pulse Rate 76 76 Respiratory Rate 18 Blood Pressure 137/73 Pulse Oximetry 07/18/18 15:50 07/18/18 15:54 07/18/18 15:55 Temperature 97.7 F Pulse Rate 87 89 Respiratory Rate Blood Pressure Pulse Oximetry 07/18/18 16:00 07/18/18 16:55 07/18/18 17:05 Temperature Pulse Rate 91 H 86 85 Respiratory Rate Blood Pressure 149/101 H 161/81 H Pulse Oximetry 07/18/18 17:41 07/18/18 18:20 07/18/18 18:25 Temperature Pulse Rate 93 H 87 Respiratory Rate 18 Blood Pressure 157/79 H Pulse Oximetry 07/18/18 18:55 07/18/18 19:10 12/11/18 19:55 Temperature Pulse Rate 94 H 83 83 Respiratory Rate Blood Pressure 166/83 H Pulse Oximetry 07/18/18 20:05 07/18/18 20:07 07/18/18 20:10 Temperature 97.7 F Pulse Rate 87 Respiratory Rate 18 Blood Pressure Pulse Oximetry 07/18/18 20:55 07/18/18 21:15 07/18/18 21:20 Temperature Pulse Rate 82 76 Respiratory Rate Blood Pressure 149/76 H 164/78 H Pulse Oximetry 98 07/18/18 21:40 07/18/18 22:20 07/18/18 22:30 Temperature Pulse Rate 84 81 81 Respiratory Rate Blood Pressure 163/76 H Pulse Oximetry 07/18/18 23:08 07/18/18 23:30 07/18/18 23:33 Temperature Pulse Rate 85 76 Respiratory Rate 18 Blood Pressure 139/70 Pulse Oximetry 07/18/18 23:55 07/19/18 00:00 07/19/18 01:00 Temperature Pulse Rate 65 76 Respiratory Rate 18 Blood Pressure 128/65 133/77 Pulse Oximetry 07/19/18 01:15 07/19/18 01:30 07/19/18 01:35 Temperature Pulse Rate 74 76 72 Respiratory Rate Blood Pressure Pulse Oximetry 07/19/18 01:45 07/19/18 01:48 07/19/18 01:55 Temperature 98.5 F Pulse Rate 71 72 Respiratory Rate 18 Blood Pressure Pulse Oximetry 07/19/18 02:31 07/19/18 02:55 07/19/18 03:30 Temperature Pulse Rate 64 75 66 Respiratory Rate 18 Blood Pressure 141/86 H 160/86 H Pulse Oximetry 07/19/18 03:35 07/19/18 03:45 07/19/18 03:55 Temperature Pulse Rate 74 72 69 Respiratory Rate 18 Blood Pressure 171/90 H 158/75 H Pulse Oximetry 07/19/18 04:14 07/19/18 04:15 07/19/18 04:20 Temperature Pulse Rate 65 67 Respiratory Rate 18 Blood Pressure 147/76 H Pulse Oximetry 07/19/18 04:25 07/19/18 04:30 07/19/18 04:45 Temperature Pulse Rate 64 66 65 Respiratory Rate Blood Pressure Pulse Oximetry 07/19/18 04:50 07/19/18 04:55 07/19/18 05:00 Temperature Pulse Rate 64 72 80 Respiratory Rate Blood Pressure 178/99 H Pulse Oximetry 07/19/18 05:05 07/19/18 05:12 07/19/18 05:30 Temperature Pulse Rate 81 83 79 Respiratory Rate 18 Blood Pressure Pulse Oximetry 07/19/18 06:45 07/19/18 06:50 07/19/18 06:55 Temperature Pulse Rate 92 H 76 81 Respiratory Rate Blood Pressure 177/95 H Pulse Oximetry 07/19/18 07:10 07/19/18 07:55 07/19/18 07:57 Temperature 98.3 F Pulse Rate 81 76 Respiratory Rate Blood Pressure 164/83 H 154/95 H Pulse Oximetry Intake & Output 07/18/18 07/19/18 07/19/18 18:59 06:59 18:59 Intake Total 1000 / 1000 Balance 1000 / 1000 Intake: IV 1000 / 1000 Magnesium Sulfate/Water 40 gm/ 1000 / 1000 1000 ml Premix 40 gm In 1,000 ml @ 2 GM/HR 50 mls/hr IV.CONT Q24H [facility] Rx#:[id number] Result Diagrams: 07/18/18 04:48 07/18/18 10:01 Objective Remarks: GENERAL: Obese, AA female, tearful, in NAD CARDIOVASCULAR: Regular rate and rhythm without murmurs, gallops, or rubs. RESPIRATORY: Breath sounds equal bilaterally. No accessory muscle use. Significantly improved. ABDOMEN/GI: Abdomen soft, minimally tender to palpation. Incision clean and dry. Healing well. GENITOURINARY: Light bleeding, almost gone. EXTREMITIES: No cyanosis or edema, non-tender, without signs of DVT. Pt has SCD' s on. Medications and IVs: Active Medications Acetaminophen (Tylenol) 650 mg PO Q6HR PRN PRN Reason: pain Last Admin: 07/15/18 16:10 Dose: 650 mg Acetaminophen (Tylenol) 650 mg PO Q6H PRN PRN Reason: PAIN SCALE 1 TO 2 Amlodipine Besylate (Norvasc) 10 mg PO DAILY [facility] Last Admin: 07/18/18 08:08 Dose: 10 mg Calcium Gluconate (Calcium Gluconate Inj) 1 gm IV.PUSH PRN PRN PRN Reason: Magnesium toxicity Calcium Gluconate (Calcium Gluconate Inj) 1 gm IV.PUSH PRN PRN PRN Reason: Magnesium toxicity Enoxaparin Sodium (Lovenox Inj) 60 mg SQ DAILY [facility] Hydrochlorothiazide (Hydrodiuril) 50 mg PO DAILY [facility] Last Admin: 07/18/18 08:08 Dose: 50 mg Oxytocin (Pitocin 30 Units/Ns 500 Ml Premix) 30 units in 500 mls @ 100 mls/hr IV.SIG UNSCH PRN PRN Reason: Heavy bleeding Lactated Ringer's (Lr 1000 Ml Inj) 1,000 mls @ 75 mls/hr IV.CONT .[id number] [facility] Last Admin: 07/19/18 01:15 Dose: Not Given Magnesium Sulfate (Magnesium Sulfate/Water 40 Gm/1000 Ml Premix) 40 gm in 1, 000 mls @ 50 mls/hr IV.CONT Q24H [facility] Last Admin: 07/19/18 01:15 Dose: Not Given Ibuprofen (Motrin) 800 mg PO Q8H PRN PRN Reason: cramping Last Admin: 07/17/18 09:06 Dose: 800 mg Ketorolac Tromethamine (Toradol Inj) 30 mg IM Q6H PRN PRN Reason: SEE LABEL COMMENTS Labetalol HCl (Trandate) 400 mg PO TID [facility] Last Admin: 07/18/18 20:10 Dose: 400 mg Morphine Sulfate (Morphine Inj) 4 mg IV.PUSH Q4H PRN PRN Reason: back pain due to urosepsis Naloxone HCl (Narcan Inj) 0.4 mg IV.PUSH UNSCH PRN PRN Reason: SEE LABEL COMMENTS Nifedipine (Procardia) 20 mg PO NOW PRN PRN Reason: SEE LABEL COMMENTS Nifedipine (Procardia) 20 mg PO NOW PRN PRN Reason: SEE LABEL COMMENTS Ondansetron HCl (Zofran Inj) 4 mg IV.PUSH Q6H PRN PRN Reason: NAUSEA OR VOMITING Oxycodone/Acetaminophen (Percocet 5/325 Mg) 1 tab PO Q4H PRN PRN Reason: PAIN SCALE 3 TO 5 Last Admin: 07/19/18 06:01 Dose: 1 tab Oxycodone/Acetaminophen (Percocet 5/325 Mg) 2 tab PO Q4H PRN PRN Reason: PAIN SCALE 6 TO 10 Last Admin: 07/19/18 01:42 Dose: 2 tab Senna/Docusate Sodium (Siria-Colace) 2 tab PO Q12H PRN PRN Reason: CONSTIPATION Last Admin: 07/18/18 21:38 Dose: 2 tab Simethicone (Mylicon Chew) 80 mg PO QID PRN PRN Reason: FLATULENCE Last Admin: 07/18/18 08:08 Dose: 80 mg Sodium Chloride (Ns Flush) 2 ml IV.FLUSH BID [facility] Last Admin: 07/18/18 21:30 Dose: 2 ml Sodium Chloride (Ns Flush) 2 ml IV.FLUSH PRN PRN PRN Reason: FLUSH AFTER USING IV ACCESS Zolpidem Tartrate (Ambien) 5 mg PO HS PRN PRN Reason: INSOMNIA Assessment and Plan - Diagnosis (1) Chronic hypertension Code(s): I10 - Essential (primary) hypertension Status: Acute Plan: Pt has chronic hypertension since before . She was taking nifedipine in the past, but switched to Labetalol and Methyldopa during . Yesterday pt's BP were very difficult to control in the 188s-190s systolic. Pt was restarted on Magnesium for 24 hrs and received Lasix with urine output of over 5L Continue labetalol 400mg TID Continue Amlodipine 10mg qday Continue HCTZ 50mg qday Monitor BP closely through the day (2) Status post delivery Code(s): Z98.891 - History of uterine scar from previous surgery Status: Acute Plan: Patient is s/p repeat LTCS and Right salpingectomy. Pain is controlled on meds. Denies nausea or vomiting S/P Magnesium for 24 hr (07/15-07/16) S/P Magnesium (07/17-07/19) (3) Preeclampsia Code(s): O14.90 - Unspecified pre-eclampsia, unspecified trimester Status: Acute Plan: Patient is s/p repeat LTCS for severe pre-eclampsia. BPs are stable 130-140s/80s. Denies headaches or vision changes or RUQ pain. Urine output satisfactory. No hyperreflexia. Finished 24 hr Magnesium Sulphate for eclampsia prophylaxis on 05/16, repeat dose 07/17-07/18 (4) Constipation Code(s): K59.00 - Constipation, unspecified Status: Acute Plan: - Optimize constipation control this morning as well as ambulation when possible. (5) Chest pain Code(s): R07.9 - Chest pain, unspecified Status: Resolved Plan: Resolved. (6) Shortness of breath during Code(s): O99.89 - Other specified diseases and conditions complicating , childbirth and the puerperium; R06.02 - Shortness of breath Status: Resolved Plan: Chest Xray showed RLL consolidation/trace pleural effusion Started on Rocephin/Azithromycin. CTA wnl ECHO wnl O2 sats have been 97% s/p Ceftriaxone for 3 days Encourage use of incentive spirometer (7) H/O pulmonary embolus during Code(s): Z86.711 - Personal history of pulmonary embolism; Z87.59 - Personal history of other complications of , childbirth and the puerperium Status: Acute Plan: Negative CTA On Lovenox for prevention of DVT Pt will be discharged on anticoagulation for 6 weeks (8) DVT prophylaxis Status: Acute Plan: On Lovenox 40mg SQ daily (9) Nutrition, metabolism, and development symptoms Code(s): R63.8 - Other symptoms and signs concerning food and fluid intake Status: Acute Plan: FEN: PO hydration. Continue cardiac diet. Check electrolytes and replace as needed. - Plan Pt's blood pressures are labile at different times during the day, requiring IV medication for control. Plan today is to consult Medicine team to help optimize her medication for outpatient treatment. Discharge will be pending on Medicine recommendations and BP control today. We will optimize constipation management and pain control, as well as encourage ambulation as long as BP is under 150/90. Pt discussed with Dr. Ayden Meyer
[2018-07-19] MEDS ORDERED: Furosemide 20 MG Tablet PO ONE (10:26)
[2018-07-19] MEDS ORDERED: Lisinopril 10 MG Tablet PO SCH (10:30)
[2018-07-19 11:25] LABS: Calcium 8.4 mg/dL (8.5-10.1); Carbon Dioxide 30.2 meq/L (21.0-32.0); Potassium 3.9 meq/L (3.5-5.1)
[2018-07-19] MEDS: Simethicone 80 MG Chew Tablet PO PRN ×2 (13:16→23:37)
--- NOTE | 2018-07-19 13:55 | P.CONFP ---
History of Present Illness Primary Care Provider: No Primary Care Physician <Arpita Hill 07/20/18 09:31> No Primary Care Physician <EyadChucky [facility] 07/19/18 13:54> Chief Complaint: Hypertension <Chucky Castano [facility] 07/19/18 13:54> History of Present Illness: Family Medicine team asked to re-evaluate the patient as she has been persistently hypertensive in the period. Family medicine team had been consulted prior to delivery but signed off and is now been reconsulted. She has been hypertensive despite being on labetalol 400 mg 3 times daily, amlodipine 10 mg daily, and hydrochlorothiazide 50 mg daily. Patient was also given IV dose of Lasix on the day prior with significant diuresis. At this time the patient denies any chest pain, shortness of breath, blurry vision and states that her legs are not swelling compared to baseline. She states that prior to she had been treated with nifedipine for hypertension. <Chucky Castano [facility] 07/19/18 13:54> Review of Systems All other systems reviewed negative except as stated in HPI <Chucky Castano [facility] 07/19/18 13:54> PMF - Medical History Medical History: Medical History (Last Reviewed 07/18/18 @ 09:48 by Evelia Kimble) History of pulmonary embolism (Acute) History of pre-eclampsia (Acute) History of pulmonary embolism <Arpita Hill 07/20/18 09:31> Medical History (Last Reviewed 07/18/18 @ 09:48 by Evelia Kimble) History of pulmonary embolism (Acute) History of pre-eclampsia (Acute) History of pulmonary embolism <Chucky Castano [facility] 07/19/18 13:54> - Surgical History Surgical History: Surgical History (Last Reviewed 07/18/18 @ 09:48 by Evelia Kimble) History of section (Acute) <Arpita Hill 07/20/18 09:31> Surgical History (Last Reviewed 07/18/18 @ 09:48 by Evelia Kimble) History of section (Acute) <Chucky Castano 07/19/18 13:54> - Family History Family History: Family History (Last Reviewed 07/16/18 @ 13:14 by Astrid Boston) Other History of pre-eclampsia in prior , currently History of pulmonary embolism History of right salpingo-oophorectomy <Arpita Hill 07/20/18 09:31> Family History (Last Reviewed 07/16/18 @ 13:14 by Astrid Boston) Other History of pre-eclampsia in prior , currently History of pulmonary embolism History of right salpingo-oophorectomy <Chucky Castano 07/19/18 13:54> - Tobacco History Tobacco Use In Past 30 Days: No <Chucky Castano 07/19/18 13:54> Smoking Status: Never smoker <Chucky Castano 07/19/18 13:54> - Alcohol History How Often Do You Have a Drink Containing Alcohol: Never <Chucky Castano 13:54> - Travel History History of Recent Travel: No <Chucky Castano 07/19/18 13:54> Recent Travel in the [facility] Within the Last 8 Weeks: No <Chucky Castano 07/19 13:54> Recent Travel Out of the Country Within the Last 8 Weeks: No <Chucky Castano 07/19/18 13:54> - Immunization History Hx Influenza Vaccine This Season: Yes <Chucky Castano 07/19/18 13:54> Medications and Allergies Allergies Allergy/AdvReac Type Severity Reaction Status Date / Time No Known Allergies Allergy Verified 07/14/18 08:18 <Arpita Hill 07/20/18 09:31> Home Medications Medication Instructions Recorded Confirmed Type labetalol 400 mg CHEW TID 07/14/1818 History methyldopa 500 mg PO BID 07/14/18 1218 History <Arpita Hill 07/20/18 09:31> Active Medications: Active Medications Acetaminophen (Tylenol) 650 mg PO Q6HR PRN PRN Reason: pain Last Admin: 07/19/18 16:40 Dose: 650 mg Acetaminophen (Tylenol) 650 mg PO Q6H PRN PRN Reason: PAIN SCALE 1 TO 2 Al Hydroxide/Mg Hydroxide (Milk Of Magnesia Liq) 30 ml PO Q12H PRN PRN Reason: Mild Constipation Amlodipine Besylate (Norvasc) 10 mg PO DAILY KEITH Last Admin: 07/20/18 09:28 Dose: 10 mg Bisacodyl (Dulcolax Supp) 10 mg RECTAL DAILY PRN PRN Reason: SEVERE CONSITIPATION Calcium Gluconate (Calcium Gluconate Inj) 1 gm IV.PUSH PRN PRN PRN Reason: Magnesium toxicity Calcium Gluconate (Calcium Gluconate Inj) 1 gm IV.PUSH PRN PRN PRN Reason: Magnesium toxicity Enoxaparin Sodium (Lovenox Inj) 60 mg SQ DAILY [facility] Last Admin: 07/20/18 09:29 Dose: 60 mg Hydrochlorothiazide (Hydrodiuril) 50 mg PO DAILY [facility] Last Admin: 07/20/18 09:28 Dose: 50 mg Oxytocin (Pitocin 30 Units/Ns 500 Ml Premix) 30 units in 500 mls @ 100 mls/hr IV.SIG UNSCH PRN PRN Reason: Heavy bleeding Ibuprofen (Motrin) 800 mg PO Q8H PRN PRN Reason: cramping Last Admin: 07/19/18 16:39 Dose: 800 mg Ketorolac Tromethamine (Toradol Inj) 30 mg IM Q6H PRN PRN Reason: SEE LABEL COMMENTS Lactulose (Lactulose Liq) 30 ml PO DAILY PRN PRN Reason: SEVERE CONSITIPATION Lisinopril (Prinivil) 20 mg PO DAILY [facility] Last Admin: 07/20/18 09:28 Dose: 20 mg Morphine Sulfate (Morphine Inj) 4 mg IV.PUSH Q4H PRN PRN Reason: back pain due to urosepsis Naloxone HCl (Narcan Inj) 0.4 mg IV.PUSH UNSCH PRN PRN Reason: SEE LABEL COMMENTS Nifedipine (Procardia) 20 mg PO NOW PRN PRN Reason: SEE LABEL COMMENTS Nifedipine (Procardia) 20 mg PO NOW PRN PRN Reason: SEE LABEL COMMENTS Ondansetron HCl (Zofran Inj) 4 mg IV.PUSH Q6H PRN PRN Reason: NAUSEA OR VOMITING Oxycodone/Acetaminophen (Percocet 5/325 Mg) 1 tab PO Q4H PRN PRN Reason: PAIN SCALE 3 TO 5 Last Admin: 07/19/18 23:37 Dose: 1 tab Oxycodone/Acetaminophen (Percocet 5/325 Mg) 2 tab PO Q4H PRN PRN Reason: PAIN SCALE 6 TO 10 Last Admin: 07/20/18 07:27 Dose: 2 tab Senna/Docusate Sodium (Siria-Colace) 2 tab PO Q12H PRN PRN Reason: CONSTIPATION Last Admin: 07/18/18 21:38 Dose: 2 tab Simethicone (Mylicon Chew) 80 mg PO QID PRN PRN Reason: FLATULENCE Last Admin: 07/19/18 23:37 Dose: 80 mg Sodium Chloride (Ns Flush) 2 ml IV.FLUSH BID [facility] Last Admin: 07/20/18 09:29 Dose: 2 ml Sodium Chloride (Ns Flush) 2 ml IV.FLUSH PRN PRN PRN Reason: FLUSH AFTER USING IV ACCESS Zolpidem Tartrate (Ambien) 5 mg PO HS PRN PRN Reason: INSOMNIA <Arpita Hill R - 07/20/18 09:31> Active Medications Acetaminophen (Tylenol) 650 mg PO Q6HR PRN PRN Reason: pain Last Admin: 07/15/18 16:10 Dose: 650 mg Acetaminophen (Tylenol) 650 mg PO Q6H PRN PRN Reason: PAIN SCALE 1 TO 2 Al Hydroxide/Mg Hydroxide (Milk Of Magnketty Liq) 30 ml PO Q12H PRN PRN Reason: Mild Constipation Amlodipine Besylate (Norvasc) 10 mg PO DAILY [facility] Last Admin: 07/19/18 09:22 Dose: 10 mg Bisacodyl (Dulcolax Supp) 10 mg RECTAL DAILY PRN PRN Reason: SEVERE CONSITIPATION Calcium Gluconate (Calcium Gluconate Inj) 1 gm IV.PUSH PRN PRN PRN Reason: Magnesium toxicity Calcium Gluconate (Calcium Gluconate Inj) 1 gm IV.PUSH PRN PRN PRN Reason: Magnesium toxicity Enoxaparin Sodium (Lovenox Inj) 60 mg SQ DAILY [facility] Last Admin: 07/19/18 09:22 Dose: 60 mg Hydrochlorothiazide (Hydrodiuril) 50 mg PO DAILY [facility] Last Admin: 07/19/18 09:22 Dose: 50 mg Oxytocin (Pitocin 30 Units/Ns 500 Ml Premix) 30 units in 500 mls @ 100 mls/hr IV.SIG UNSCH PRN PRN Reason: Heavy bleeding Ibuprofen (Motrin) 800 mg PO Q8H PRN PRN Reason: cramping Last Admin: 07/17/18 09:06 Dose: 800 mg Ketorolac Tromethamine (Toradol Inj) 30 mg IM Q6H PRN PRN Reason: SEE LABEL COMMENTS Lactulose (Lactulose Liq) 30 ml PO DAILY PRN PRN Reason: SEVERE CONSITIPATION Lisinopril (Prinivil) 10 mg PO DAILY [facility] Last Admin: 07/19/18 13:14 Dose: 10 mg Morphine Sulfate (Morphine Inj) 4 mg IV.PUSH Q4H PRN PRN Reason: back pain due to urosepsis Naloxone HCl (Narcan Inj) 0.4 mg IV.PUSH UNSCH PRN PRN Reason: SEE LABEL COMMENTS Nifedipine (Procardia) 20 mg PO NOW PRN PRN Reason: SEE LABEL COMMENTS Nifedipine (Procardia) 20 mg PO NOW PRN PRN Reason: SEE LABEL COMMENTS Ondansetron HCl (Zofran Inj) 4 mg IV.PUSH Q6H PRN PRN Reason: NAUSEA OR VOMITING Oxycodone/Acetaminophen (Percocet 5/325 Mg) 1 tab PO Q4H PRN PRN Reason: PAIN SCALE 3 TO 5 Last Admin: 07/19/18 06:01 Dose: 1 tab Oxycodone/Acetaminophen (Percocet 5/325 Mg) 2 tab PO Q4H PRN PRN Reason: PAIN SCALE 6 TO 10 Last Admin: 07/19/18 01:42 Dose: 2 tab Senna/Docusate Sodium (Siria-Colace) 2 tab PO Q12H PRN PRN Reason: CONSTIPATION Last Admin: 07/18/18 21:38 Dose: 2 tab Simethicone (Mylicon Chew) 80 mg PO QID PRN PRN Reason: FLATULENCE Last Admin: 07/19/18 13:16 Dose: 80 mg Sodium Chloride (Ns Flush) 2 ml IV.FLUSH BID [facility] Last Admin: 07/18/18 21:30 Dose: 2 ml Sodium Chloride (Ns Flush) 2 ml IV.FLUSH PRN PRN PRN Reason: FLUSH AFTER USING IV ACCESS Zolpidem Tartrate (Ambien) 5 mg PO HS PRN PRN Reason: INSOMNIA <Chucky Castano - 07/19/18 13:54> Exam Vital signs: Vital Signs 07/19/18 09:55 07/19/18 10:12 07/19/18 10:40 Temperature Pulse Rate 82 88 Respiratory Rate 18 Blood Pressure 125/62 Pulse Oximetry 07/19/18 10:55 07/19/18 11:10 07/19/18 12:00 Temperature 98.9 F Pulse Rate 82 86 Respiratory Rate Blood Pressure Pulse Oximetry 07/19/18 12:15 07/19/18 13:12 07/19/18 14:24 Temperature Pulse Rate 92 H 91 H 88 Respiratory Rate 18 18 Blood Pressure 139/75 134/64 Pulse Oximetry 07/19/18 16:35 07/19/18 16:51 07/19/18 20:45 Temperature 98.5 F Pulse Rate 91 H 92 H Respiratory Rate 18 18 Blood Pressure 138/75 155/85 H Pulse Oximetry 07/19/18 21:40 07/20/18 00:15 07/20/18 00:17 Temperature 97.7 F Pulse Rate 97 H Respiratory Rate 18 Blood Pressure 157/77 H Pulse Oximetry 98 07/20/18 00:40 07/20/18 00:45 07/20/18 00:55 Temperature Pulse Rate 95 H 80 77 Respiratory Rate Blood Pressure Pulse Oximetry 07/20/18 03:55 07/20/18 05:00 07/20/18 05:15 Temperature Pulse Rate 79 81 80 Respiratory Rate 18 Blood Pressure 162/84 H 126/48 L Pulse Oximetry 07/20/18 05:20 07/20/18 05:38 07/20/18 09:27 Temperature 98.7 F Pulse Rate 81 Respiratory Rate 18 17 Blood Pressure 142/66 H Pulse Oximetry 100 07/20/18 09:28 Temperature Pulse Rate 87 Respiratory Rate Blood Pressure 161/84 H Pulse Oximetry <Arpita Hill R - 07/20/18 09:31> Vital Signs 07/18/18 13:55 07/18/18 14:00 07/18/18 14:01 Temperature Pulse Rate 90 80 77 Respiratory Rate 16 Blood Pressure 133/57 L 138/64 Pulse Oximetry 07/18/18 14:05 07/18/18 14:35 07/18/18 14:55 Temperature Pulse Rate 77 76 76 Respiratory Rate Blood Pressure 137/73 Pulse Oximetry 07/18/18 15:19 07/18/18 15:50 07/18/18 15:54 Temperature 97.7 F Pulse Rate 87 Respiratory Rate 18 Blood Pressure Pulse Oximetry 07/18/18 15:55 07/18/18 16:00 07/18/18 16:55 Temperature Pulse Rate 89 91 H 86 Respiratory Rate Blood Pressure 149/101 H Pulse Oximetry 07/18/18 17:05 07/18/18 17:41 07/18/18 18:20 Temperature Pulse Rate 85 93 H Respiratory Rate 18 Blood Pressure 161/81 H 157/79 H Pulse Oximetry 07/18/18 18:25 07/18/18 18:55 07/18/18 19:10 Temperature Pulse Rate 87 94 H 83 Respiratory Rate Blood Pressure 166/83 H Pulse Oximetry 07/18/18 19:55 07/18/18 20:05 07/18/18 20:07 Temperature Pulse Rate 83 87 Respiratory Rate 18 Blood Pressure Pulse Oximetry 07/18/18 20:10 07/18/18 20:55 07/18/18 21:15 Temperature 97.7 F Pulse Rate 82 Respiratory Rate Blood Pressure 149/76 H Pulse Oximetry 98 07/18/18 21:20 07/18/18 21:40 07/18/18 22:20 Temperature Pulse Rate 76 84 81 Respiratory Rate Blood Pressure 164/78 H 163/76 H Pulse Oximetry 07/18/18 22:30 07/18/18 23:08 07/18/18 23:30 Temperature Pulse Rate 81 85 76 Respiratory Rate Blood Pressure 139/70 Pulse Oximetry 07/18/18 23:33 07/18/18 23:55 07/19/18 00:00 Temperature Pulse Rate 65 76 Respiratory Rate 18 Blood Pressure 128/65 133/77 Pulse Oximetry 07/19/18 01:00 07/19/18 01:15 07/19/18 01:30 Temperature Pulse Rate 74 76 Respiratory Rate 18 Blood Pressure Pulse Oximetry 07/19/18 01:35 07/19/18 01:45 07/19/18 01:48 Temperature 98.5 F Pulse Rate 72 71 Respiratory Rate 18 Blood Pressure Pulse Oximetry 07/19/18 01:55 07/19/18 02:31 07/19/18 02:55 Temperature Pulse Rate 72 64 75 Respiratory Rate 18 Blood Pressure 141/86 H 160/86 H Pulse Oximetry 07/19/18 03:30 07/19/18 03:35 07/19/18 03:45 Temperature Pulse Rate 66 74 72 Respiratory Rate 18 Blood Pressure 171/90 H Pulse Oximetry 07/19/18 03:55 07/19/18 04:14 07/19/18 04:15 Temperature Pulse Rate 69 65 Respiratory Rate 18 Blood Pressure 158/75 H Pulse Oximetry 07/19/18 04:20 07/19/18 04:25 07/19/18 04:30 Temperature Pulse Rate 67 64 66 Respiratory Rate Blood Pressure 147/76 H Pulse Oximetry 07/19/18 04:45 07/19/18 04:50 07/19/18 04:55 Temperature Pulse Rate 65 64 72 Respiratory Rate Blood Pressure Pulse Oximetry 07/19/18 05:00 07/19/18 05:05 07/19/18 05:12 Temperature Pulse Rate 80 81 83 Respiratory Rate 18 Blood Pressure 178/99 H Pulse Oximetry 07/19/18 05:30 07/19/18 06:45 07/19/18 06:50 Temperature Pulse Rate 79 92 H 76 Respiratory Rate Blood Pressure 177/95 H Pulse Oximetry 07/19/18 06:55 07/19/18 07:10 07/19/18 07:55 Temperature Pulse Rate 81 81 76 Respiratory Rate Blood Pressure 164/83 H 154/95 H Pulse Oximetry 07/19/18 07:57 07/19/18 08:55 07/19/18 09:55 Temperature 98.3 F Pulse Rate 82 82 Respiratory Rate Blood Pressure 125/62 Pulse Oximetry 07/19/18 10:12 07/19/18 10:40 07/19/18 10:55 Temperature Pulse Rate 88 82 Respiratory Rate 18 Blood Pressure Pulse Oximetry 07/19/18 11:10 07/19/18 12:15 Temperature Pulse Rate 86 92 H Respiratory Rate Blood Pressure Pulse Oximetry Intake & Output 07/18/18 07/19/18 07/19/18 18:59 06:59 18:59 Intake Total 1000 / 1000 Balance 1000 / 1000 Intake: IV 1000 / 1000 Magnesium Sulfate/Water 40 gm/ 1000 / 1000 1000 ml Premix 40 gm In 1,000 ml @ 2 GM/HR 50 mls/hr IV.CONT Q24H KEITH Rx#:[id number] <Chucky Castano B - 07/19/18 13:54> Narrative: GENERAL: Obese female sitting upright in bed in no acute distress. Answering questions appropriately in full sentences SKIN: Warm and dry. HEAD: Normocephalic. EYES: No scleral icterus. No injection or drainage. NECK: Supple, trachea midline. No JVD or lymphadenopathy. CARDIOVASCULAR: Regular rate and rhythm without murmurs, gallops, or rubs. RESPIRATORY: Breath sounds equal bilaterally. No accessory muscle use. Faint crackles appreciated in the bibasilar lung jacobo, more pronounced on the right GASTROINTESTINAL: Abdomen soft, non-tender, nondistended. MUSCULOSKELETAL: No cyanosis. Trace edema appreciated to the level of the ileal plateau bilaterally BACK: Nontender without obvious deformity. No CVA tenderness. <Chucky Castano - 07/19/18 13:54> Results - Labs Result diagrams: 07/18/18 04:48 07/19/18 10:47 <Arpita Hill - 07/20/18 09:31> Abnormal lab results 07/19/18 Range/Units 10:47 Sodium 134 L (136-145) meq/L Chloride 96 L (98-107) meq/L Estimated GFR 83 L (>89) mL/min Calcium 8.4 L (8.5-10.1) mg/dL [facility] 07/19/18 10:47 Sodium 134 L Potassium 3.9 Chloride 96 L Carbon Dioxide 30.2 BUN 16 Creatinine 0.92 Calcium 8.4 L <Arpita Hill R - 07/20/18 09:31> Abnormal lab results 07/19/18 Range/Units 10:47 Sodium 134 L (136-145) meq/L Chloride 96 L (98-107) meq/L Estimated GFR 83 L (>89) mL/min Calcium 8.4 L (8.5-10.1) mg/dL [facility] 07/19/18 10:47 Sodium 134 L Potassium 3.9 Chloride 96 L Carbon Dioxide 30.2 BUN 16 Creatinine 0.92 Calcium 8.4 L <Chucky Castano - 07/19/18 13:54> Assessment and Plan - Assessment (1) Chronic hypertension Code(s): I10 - Essential (primary) hypertension Status: Acute (2) Status post delivery Code(s): Z98.891 - History of uterine scar from previous surgery Status: Acute (3) Preeclampsia Code(s): O14.90 - Unspecified pre-eclampsia, unspecified trimester Status: Acute (4) Constipation Code(s): K59.00 - Constipation, unspecified Status: Acute (5) Chest pain Code(s): R07.9 - Chest pain, unspecified Status: Resolved (6) H/O pulmonary embolus during Code(s): Z86.711 - Personal history of pulmonary embolism; Z87.59 - Personal history of other complications of , childbirth and the puerperium Status: Acute (7) DVT prophylaxis Status: Acute (8) Nutrition, metabolism, and development symptoms Code(s): R63.8 - Other symptoms and signs concerning food and fluid intake Status: Acute <Arpita Hill - 07/20/18 09:31> (1) Chronic hypertension Code(s): I10 - Essential (primary) hypertension Status: Acute (2) Status post delivery Code(s): Z98.891 - History of uterine scar from previous surgery Status: Acute (3) Preeclampsia Code(s): O14.90 - Unspecified pre-eclampsia, unspecified trimester Status: Acute (4) Constipation Code(s): K59.00 - Constipation, unspecified Status: Acute (5) Chest pain Code(s): R07.9 - Chest pain, unspecified Status: Resolved (6) H/O pulmonary embolus during Code(s): Z86.711 - Personal history of pulmonary embolism; Z87.59 - Personal history of other complications of , childbirth and the puerperium Status: Acute (7) DVT prophylaxis Status: Acute (8) Nutrition, metabolism, and development symptoms Code(s): R63.8 - Other symptoms and signs concerning food and fluid intake Status: Acute <Chucky Castano - 07/19/18 13:26> - Assessment and Plan 37-year-old female postop day 4 from a with a known history of hypertension who has been persistently hypertensive following delivery. Status post IV magnesium -Currently on amlodipine, labetalol, hydrochlorothiazide -Blood pressure after a.m. medications was 160/82, 125/62 -Currently believe the patient still has a component of fluid overload, giving 20 mg Lasix IV -Will discontinue labetalol -continue amlodipine 10 mg, hydrochlorothiazide 50 mg -Starting lisinopril 10 mg p.o. daily, will consider adding another 10 mg tonight patient continues to be hypertensive -May also consider switching amlodipine to nifedipine for better blood pressure control -Seen and discussed with Dr. Hill and Dr. Hebert <Chucky Castano B - 07/19/18 13:54> - Attending Attestation Patient seen and dw the resident team. Agree with the assessment and plan as written <Arpita Hill R - 07/20/18 09:31>
[2018-07-19] MEDS: Acetaminophen 325 MG Tablet PO PRN (16:40)
[2018-07-20] MEDS ORDERED: NIFEdipine 10 MG Capsule PO SCH (04:45)
[2018-07-20] MEDS ORDERED: Lisinopril 20 MG Tablet PO SCH (09:00)
[2018-07-20] MEDS: amLODIPine 10 MG Tablet PO SCH (09:28)
[2018-07-20] MEDS: Enoxaparin Inj 60 MG/0.6 ML Syringe SQ SCH (09:29)
--- NOTE | 2018-07-20 09:48 | P.CONFP ---
History of Present Illness Primary Care Provider: No Primary Care Physician <SergioArpita Ashwini 07/20/18 13:00> No Primary Care Physician <CastanoChucky Joycelyn 07/20/18 09:48> Chief Complaint: Hypertension <CastanoChucky Joycelyn 07/20/18 09:48> History of Present Illness: No acute events overnight. Patient did have several elevated blood pressure readings overnight, patient states that she was having abdominal pain at the time of those recordings. Also reportedly had a smaller blood pressure cuff that was being used on the forearm, since corrected. She denies any chest pain , shortness of breath, headache or vision changes. She states her legs are no longer swollen and red back at baseline. <Chucky Castano Joycelyn 07/20/18 10:33> [facility] - Medical History Medical History: Medical History (Last Reviewed 07/20/18 @ 10:02 by Mishel Michael) History of pulmonary embolism (Acute) History of pre-eclampsia (Acute) History of pulmonary embolism <LuciachloeArpita Ashwini 07/20/18 13:00> Medical History (Last Reviewed 07/20/18 @ 10:02 by Mishel Michael) History of pulmonary embolism (Acute) History of pre-eclampsia (Acute) History of pulmonary embolism <Chucky Castano Joycelyn 07/20/18 10:23> - Surgical History Surgical History: Surgical History (Last Reviewed 07/20/18 @ 10:02 by Mishel Michael) History of section (Acute) <Arpita Hill Ashwini 07/20/18 13:00> Surgical History (Last Reviewed 07/20/18 @ 10:02 by Mishel Michael) History of section (Acute) <Chucky Castano Joycelyn 07/20/18 10:23> - Family History Family History: Family History (Last Reviewed 07/16/18 @ 13:14 by Astrid Boston) Other History of pre-eclampsia in prior , currently History of pulmonary embolism History of right salpingo-oophorectomy <LuciachloeArpita Ashwini Hawk 07/20/18 13:00> Family History (Last Reviewed 07/16/18 @ 13:14 by Astrid Boston) Other History of pre-eclampsia in prior , currently History of pulmonary embolism History of right salpingo-oophorectomy <Chucky Castano Joycelyn 07/20/18 09:48> - Tobacco History Tobacco Use In Past 30 Days: No <CastanoChucky Joycelyn 07/20/18 09:48> Smoking Status: Never smoker <Chucky Castano Joycelyn 07/20/18 09:48> - Alcohol History How Often Do You Have a Drink Containing Alcohol: Never <CastanoChucky Joycelyn Hawk 09:48> - Travel History History of Recent Travel: No <Chucky Castano 07/20/18 09:48> Recent Travel in the [place] Within the Last 8 Weeks: No <Chucky Castano 07/20 09:48> Recent Travel Out of the Country Within the Last 8 Weeks: No <Chucky Castano 07/20/18 09:48> - Immunization History Hx Influenza Vaccine This Season: Yes <Chucky Castano 07/20/18 09:48> Medications and Allergies Allergies Allergy/AdvReac Type Severity Reaction Status Date / Time No Known Allergies Allergy Verified 07/14/18 08:18 <Arpita Hill 07/20/18 13:00> Home Medications Medication Instructions Recorded Confirmed Type labetalol 400 mg CHEW TID 07/14/18 07/14/18 History methyldopa 500 mg PO BID 07/14/18 07/14/18 History <Arpita Hill 07/20/18 13:00> Active Medications: Active Medications Acetaminophen (Tylenol) 650 mg PO Q6HR PRN PRN Reason: pain Last Admin: 07/19/18 16:40 Dose: 650 mg Acetaminophen (Tylenol) 650 mg PO Q6H PRN PRN Reason: PAIN SCALE 1 TO 2 Al Hydroxide/Mg Hydroxide (Milk Of Magnesia Liq) 30 ml PO Q12H PRN PRN Reason: Mild Constipation Bisacodyl (Dulcolax Supp) 10 mg RECTAL DAILY PRN PRN Reason: SEVERE CONSITIPATION Calcium Gluconate (Calcium Gluconate Inj) 1 gm IV.PUSH PRN PRN PRN Reason: Magnesium toxicity Calcium Gluconate (Calcium Gluconate Inj) 1 gm IV.PUSH PRN PRN PRN Reason: Magnesium toxicity Enoxaparin Sodium (Lovenox Inj) 60 mg SQ DAILY [facility] Last Admin: 07/20/18 09:29 Dose: 60 mg Hydrochlorothiazide (Hydrodiuril) 50 mg PO DAILY [facility] Last Admin: 07/20/18 09:28 Dose: 50 mg Oxytocin (Pitocin 30 Units/Ns 500 Ml Premix) 30 units in 500 mls @ 100 mls/hr IV.SIG UNSCH PRN PRN Reason: Heavy bleeding Ibuprofen (Motrin) 800 mg PO Q8H PRN PRN Reason: cramping Last Admin: 07/19/18 16:39 Dose: 800 mg Ketorolac Tromethamine (Toradol Inj) 30 mg IM Q6H PRN PRN Reason: SEE LABEL COMMENTS Lactulose (Lactulose Liq) 30 ml PO DAILY PRN PRN Reason: SEVERE CONSITIPATION Lisinopril (Prinivil) 20 mg PO DAILY [facility] Last Admin: 07/20/18 09:28 Dose: 20 mg Morphine Sulfate (Morphine Inj) 4 mg IV.PUSH Q4H PRN PRN Reason: back pain due to urosepsis Naloxone HCl (Narcan Inj) 0.4 mg IV.PUSH UNSCH PRN PRN Reason: SEE LABEL COMMENTS Nifedipine (Procardia) 20 mg PO NOW PRN PRN Reason: SEE LABEL COMMENTS Nifedipine (Procardia) 20 mg PO NOW PRN PRN Reason: SEE LABEL COMMENTS Ondansetron HCl (Zofran Inj) 4 mg IV.PUSH Q6H PRN PRN Reason: NAUSEA OR VOMITING Oxycodone/Acetaminophen (Percocet 5/325 Mg) 1 tab PO Q4H PRN PRN Reason: PAIN SCALE 3 TO 5 Last Admin: 07/19/18 23:37 Dose: 1 tab Oxycodone/Acetaminophen (Percocet 5/325 Mg) 2 tab PO Q4H PRN PRN Reason: PAIN SCALE 6 TO 10 Last Admin: 07/20/18 12:34 Dose: 2 tab Senna/Docusate Sodium (Siria-Colace) 2 tab PO Q12H PRN PRN Reason: CONSTIPATION Last Admin: 07/18/18 21:38 Dose: 2 tab Simethicone (Mylicon Chew) 80 mg PO QID PRN PRN Reason: FLATULENCE Last Admin: 07/19/18 23:37 Dose: 80 mg Sodium Chloride (Ns Flush) 2 ml IV.FLUSH BID [facility] Last Admin: 12/13/18 09:29 Dose: 2 ml Sodium Chloride (Ns Flush) 2 ml IV.FLUSH PRN PRN PRN Reason: FLUSH AFTER USING IV ACCESS Zolpidem Tartrate (Ambien) 5 mg PO HS PRN PRN Reason: INSOMNIA <Arpita Hill R - 07/20/18 13:00> Active Medications Acetaminophen (Tylenol) 650 mg PO Q6HR PRN PRN Reason: pain Last Admin: 07/19/18 16:40 Dose: 650 mg Acetaminophen (Tylenol) 650 mg PO Q6H PRN PRN Reason: PAIN SCALE 1 TO 2 Al Hydroxide/Mg Hydroxide (Milk Of Magnesia Liq) 30 ml PO Q12H PRN PRN Reason: Mild Constipation Amlodipine Besylate (Norvasc) 10 mg PO DAILY [facility] Last Admin: 07/20/18 09:28 Dose: 10 mg Bisacodyl (Dulcolax Supp) 10 mg RECTAL DAILY PRN PRN Reason: SEVERE CONSITIPATION Calcium Gluconate (Calcium Gluconate Inj) 1 gm IV.PUSH PRN PRN PRN Reason: Magnesium toxicity Calcium Gluconate (Calcium Gluconate Inj) 1 gm IV.PUSH PRN PRN PRN Reason: Magnesium toxicity Enoxaparin Sodium (Lovenox Inj) 60 mg SQ DAILY [facility] Last Admin: 07/20/18 09:29 Dose: 60 mg Hydrochlorothiazide (Hydrodiuril) 50 mg PO DAILY [facility] Last Admin: 07/20/18 09:28 Dose: 50 mg Oxytocin (Pitocin 30 Units/Ns 500 Ml Premix) 30 units in 500 mls @ 100 mls/hr IV.SIG UNSCH PRN PRN Reason: Heavy bleeding Ibuprofen (Motrin) 800 mg PO Q8H PRN PRN Reason: cramping Last Admin: 07/19/18 16:39 Dose: 800 mg Ketorolac Tromethamine (Toradol Inj) 30 mg IM Q6H PRN PRN Reason: SEE LABEL COMMENTS Lactulose (Lactulose Liq) 30 ml PO DAILY PRN PRN Reason: SEVERE CONSITIPATION Lisinopril (Prinivil) 20 mg PO DAILY [facility] Last Admin: 07/20/18 09:28 Dose: 20 mg Morphine Sulfate (Morphine Inj) 4 mg IV.PUSH Q4H PRN PRN Reason: back pain due to urosepsis Naloxone HCl (Narcan Inj) 0.4 mg IV.PUSH UNSCH PRN PRN Reason: SEE LABEL COMMENTS Nifedipine (Procardia) 20 mg PO NOW PRN PRN Reason: SEE LABEL COMMENTS Nifedipine (Procardia) 20 mg PO NOW PRN PRN Reason: SEE LABEL COMMENTS Ondansetron HCl (Zofran Inj) 4 mg IV.PUSH Q6H PRN PRN Reason: NAUSEA OR VOMITING Oxycodone/Acetaminophen (Percocet 5/325 Mg) 1 tab PO Q4H PRN PRN Reason: PAIN SCALE 3 TO 5 Last Admin: 07/19/18 23:37 Dose: 1 tab Oxycodone/Acetaminophen (Percocet 5/325 Mg) 2 tab PO Q4H PRN PRN Reason: PAIN SCALE 6 TO 10 Last Admin: 07/20/18 07:27 Dose: 2 tab Senna/Docusate Sodium (Siria-Colace) 2 tab PO Q12H PRN PRN Reason: CONSTIPATION Last Admin: 07/18/18 21:38 Dose: 2 tab Simethicone (Mylicon Chew) 80 mg PO QID PRN PRN Reason: FLATULENCE Last Admin: 07/19/18 23:37 Dose: 80 mg Sodium Chloride (Ns Flush) 2 ml IV.FLUSH BID [facility] Last Admin: 07/20/18 09:29 Dose: 2 ml Sodium Chloride (Ns Flush) 2 ml IV.FLUSH PRN PRN PRN Reason: FLUSH AFTER USING IV ACCESS Zolpidem Tartrate (Ambien) 5 mg PO HS PRN PRN Reason: INSOMNIA <Chucky Castano B - 07/20/18 09:48> Exam Vital signs: Vital Signs 07/19/18 13:12 07/19/18 14:24 07/19/18 16:35 Temperature Pulse Rate 91 H 88 91 H Respiratory Rate 18 18 Blood Pressure 139/75 134/64 138/75 Pulse Oximetry 07/19/18 16:51 07/19/18 20:45 07/19/18 21:40 Temperature 98.5 F Pulse Rate 92 H Respiratory Rate 18 18 Blood Pressure 155/85 H Pulse Oximetry 98 07/20/18 00:15 07/20/18 00:17 07/20/18 00:40 Temperature 97.7 F Pulse Rate 97 H 95 H Respiratory Rate 18 Blood Pressure 157/77 H Pulse Oximetry 07/20/18 00:45 07/20/18 00:55 07/20/18 03:55 Temperature Pulse Rate 80 77 79 Respiratory Rate Blood Pressure 162/84 H Pulse Oximetry 07/20/18 05:00 07/20/18 05:15 07/20/18 05:20 Temperature Pulse Rate 81 80 Respiratory Rate 18 Blood Pressure 126/48 L Pulse Oximetry 100 07/20/18 05:38 07/20/18 09:27 07/20/18 09:28 Temperature 98.7 F Pulse Rate 81 87 Respiratory Rate 18 17 Blood Pressure 142/66 H 161/84 H Pulse Oximetry 07/20/18 10:27 07/20/18 12:11 07/20/18 12:39 Temperature Pulse Rate 88 80 86 Respiratory Rate 18 Blood Pressure 158/68 H 162/91 H 177/89 H Pulse Oximetry <Arpita Hill R - 07/20/18 13:00> Vital Signs 07/19/18 09:55 07/19/18 10:12 07/19/18 10:40 Temperature Pulse Rate 82 88 Respiratory Rate 18 Blood Pressure 125/62 Pulse Oximetry 07/19/18 10:55 07/19/18 11:10 07/19/18 12:00 Temperature 98.9 F Pulse Rate 82 86 Respiratory Rate Blood Pressure Pulse Oximetry 07/19/18 12:15 07/19/18 13:12 07/19/18 14:24 Temperature Pulse Rate 92 H 91 H 88 Respiratory Rate 18 18 Blood Pressure 139/75 134/64 Pulse Oximetry 07/19/18 16:35 07/19/18 16:51 07/19/18 20:45 Temperature 98.5 F Pulse Rate 91 H 92 H Respiratory Rate 18 18 Blood Pressure 138/75 155/85 H Pulse Oximetry 07/19/18 21:40 07/20/18 00:15 07/20/18 00:17 Temperature 97.7 F Pulse Rate 97 H Respiratory Rate 18 Blood Pressure 157/77 H Pulse Oximetry 98 07/20/18 00:40 07/20/18 00:45 07/20/18 00:55 Temperature Pulse Rate 95 H 80 77 Respiratory Rate Blood Pressure Pulse Oximetry 07/20/18 03:55 07/20/18 05:00 07/20/18 05:15 Temperature Pulse Rate 79 81 80 Respiratory Rate 18 Blood Pressure 162/84 H 126/48 L Pulse Oximetry 07/20/18 05:20 07/20/18 05:38 07/20/18 09:27 Temperature 98.7 F Pulse Rate 81 Respiratory Rate 18 17 Blood Pressure 142/66 H Pulse Oximetry 100 07/20/18 09:28 Temperature Pulse Rate 87 Respiratory Rate Blood Pressure 161/84 H Pulse Oximetry <Chucky Castano - 07/20/18 09:48> Narrative: GENERAL: Obese female sitting upright in bed in no acute distress. Answering questions appropriately in full sentences SKIN: Warm and dry. HEAD: Normocephalic. EYES: No scleral icterus. No injection or drainage. NECK: Supple, trachea midline. No JVD or lymphadenopathy. CARDIOVASCULAR: Regular rate and rhythm without murmurs, gallops, or rubs. RESPIRATORY: Breath sounds equal bilaterally. No accessory muscle use. No crackles appreciated on today's exam GASTROINTESTINAL: Abdomen soft, non-tender, nondistended. MUSCULOSKELETAL: No cyanosis. No appreciable lower extremity edema today. BACK: Nontender without obvious deformity. No CVA tenderness. <Chucky Castano - 07/20/18 10:33> Results - Labs Result diagrams: 07/18/18 04:48 07/19/18 10:47 <Arpita Hill - 07/20/18 13:00> Abnormal lab results 07/19/18 Range/Units 10:47 Sodium 134 L (136-145) meq/L Chloride 96 L (98-107) meq/L Estimated GFR 83 L (>89) mL/min Calcium 8.4 L (8.5-10.1) mg/dL BMP 07/19/18 10:47 Sodium 134 L Potassium 3.9 Chloride 96 L Carbon Dioxide 30.2 BUN 16 Creatinine 0.92 Calcium 8.4 L <Chucky Castano - 07/20/18 09:48> Assessment and Plan - Assessment (1) Chronic hypertension Code(s): I10 - Essential (primary) hypertension Status: Acute (2) Status post delivery Code(s): Z98.891 - History of uterine scar from previous surgery Status: Acute (3) Preeclampsia Code(s): O14.90 - Unspecified pre-eclampsia, unspecified trimester Status: Acute (4) Constipation Code(s): K59.00 - Constipation, unspecified Status: Acute (5) Chest pain Code(s): R07.9 - Chest pain, unspecified Status: Resolved (6) H/O pulmonary embolus during Code(s): Z86.711 - Personal history of pulmonary embolism; Z87.59 - Personal history of other complications of , childbirth and the puerperium Status: Acute (7) DVT prophylaxis Status: Acute (8) Nutrition, metabolism, and development symptoms Code(s): R63.8 - Other symptoms and signs concerning food and fluid intake Status: Acute <Arpita Hill Ashwini - 07/20/18 13:00> (1) Chronic hypertension Code(s): I10 - Essential (primary) hypertension Status: Acute (2) Status post delivery Code(s): Z98.891 - History of uterine scar from previous surgery Status: Acute (3) Preeclampsia Code(s): O14.90 - Unspecified pre-eclampsia, unspecified trimester Status: Acute Plan: Continue on labetalol and methyldopa. Magnesium sulfate. (4) Constipation Code(s): K59.00 - Constipation, unspecified Status: Acute (5) Chest pain Code(s): R07.9 - Chest pain, unspecified Status: Resolved (6) H/O pulmonary embolus during Code(s): Z86.711 - Personal history of pulmonary embolism; Z87.59 - Personal history of other complications of , childbirth and the puerperium Status: Acute (7) DVT prophylaxis Status: Acute Plan: SCD only. (8) Nutrition, metabolism, and development symptoms Code(s): R63.8 - Other symptoms and signs concerning food and fluid intake Status: Acute Plan: Fluids: p.o. intake Electrolyte: Monitor and replete as needed. Nutrition: Regular diet. <Chucky Castano - 07/20/18 10:31> - Assessment and Plan 37-year-old female postop day 4 from a with a known history of hypertension who has been persistently hypertensive following delivery. Status post IV magnesium -Currently on amlodipine, labetalol, hydrochlorothiazide -Increase lisinopril to 20 mg p.o. daily on 07/20 as she had several elevated pressures overnight -continue amlodipine 10 mg, hydrochlorothiazide 50 mg -May also consider switching amlodipine to nifedipine for better blood pressure control -Patient will need close follow-up in outpatient setting <Chucky Castano - 07/20/18 10:33> - Attending Attestation Patient seen at 12:45pm -- her BP is up to 177/89. Asymptomatic. Patient has underlying HTN and will need ongoing outpatient management to get this to goal. At this time recommend stopping amlodipine and changing to nifedipine. This is stronger at lowering BP. Continue the lisinopril and HCTZ. Will give dose of nifedipine now. If pressures return to the 150's/80-90 range then feel this patient is stable for discharge from a medicine standpoint with ongoing outpatient management. For better control -- instructed patient of the following 1. Nifedipine and HCTZ in the am 2. Lisinopril in the PM If she goes home tonight she will check her BP this evening -- if this is high over 150/90 she will take the evening dose of lisinopril tonight. If this is a normal BP she will start her BP regimen as listed above tomorrow. JIMENAPT and her friend. All questions were answered. JIMENA nurse in the room and the OB team - Dr. Galicia and Dr. Goins <Arpita Hill - 07/20/18 13:00>
--- NOTE | 2018-07-20 10:36 | P.PNOB ---
Subjective Post day: 5 Interval history: Pt doing well this morning, she wants to go home today. She denies CP, SOB, improved constipation. No bleeding, pain controlled. Objective Vital Signs/I&O: Vital Signs 07/19/18 10:40 07/19/18 10:55 07/19/18 11:10 Temperature Pulse Rate 88 82 86 Respiratory Rate Blood Pressure Pulse Oximetry 07/19/18 12:00 07/19/18 12:15 07/19/18 13:12 Temperature 98.9 F Pulse Rate 92 H 91 H Respiratory Rate 18 Blood Pressure 139/75 Pulse Oximetry 07/19/18 14:24 07/19/18 16:35 07/19/18 16:51 Temperature Pulse Rate 88 91 H Respiratory Rate 18 18 Blood Pressure 134/64 138/75 Pulse Oximetry 07/19/18 20:45 07/19/18 21:40 07/20/18 00:15 Temperature 98.5 F 97.7 F Pulse Rate 92 H Respiratory Rate 18 18 Blood Pressure 155/85 H Pulse Oximetry 98 07/20/18 00:17 07/20/18 00:40 07/20/18 00:45 Temperature Pulse Rate 97 H 95 H 80 Respiratory Rate Blood Pressure 157/77 H Pulse Oximetry 07/20/18 00:55 07/20/18 03:55 07/20/18 05:00 Temperature Pulse Rate 77 79 81 Respiratory Rate 18 Blood Pressure 162/84 H 126/48 L Pulse Oximetry 07/20/18 05:15 07/20/18 05:20 07/20/18 05:38 Temperature Pulse Rate 80 81 Respiratory Rate 18 Blood Pressure 142/66 H Pulse Oximetry 100 07/20/18 09:27 07/20/18 09:28 07/20/18 10:27 Temperature 98.7 F Pulse Rate 87 88 Respiratory Rate 17 18 Blood Pressure 161/84 H 158/68 H Pulse Oximetry Result Diagrams: 07/18/18 04:48 07/19/18 10:47 Objective Remarks: GENERAL: Obese AA patient in NAD CARDIOVASCULAR: Regular rate and rhythm without murmurs, gallops, or rubs. RESPIRATORY: Breath sounds equal bilaterally. No accessory muscle use. ABDOMEN/GI: Abdomen soft, non-tender. Incision clean and dry. Fundus: Firm, non-tender at umbilicus. GENITOURINARY: Light to no bleeding EXTREMITIES: No cyanosis or edema, non-tender, without signs of DVT. Medications and IVs: Active Medications Acetaminophen (Tylenol) 650 mg PO Q6HR PRN PRN Reason: pain Last Admin: 07/19/18 16:40 Dose: 650 mg Acetaminophen (Tylenol) 650 mg PO Q6H PRN PRN Reason: PAIN SCALE 1 TO 2 Al Hydroxide/Mg Hydroxide (Milk Of Magnesia Liq) 30 ml PO Q12H PRN PRN Reason: Mild Constipation Amlodipine Besylate (Norvasc) 10 mg PO DAILY [facility] Last Admin: 07/20/18 09:28 Dose: 10 mg Bisacodyl (Dulcolax Supp) 10 mg RECTAL DAILY PRN PRN Reason: SEVERE CONSITIPATION Calcium Gluconate (Calcium Gluconate Inj) 1 gm IV.PUSH PRN PRN PRN Reason: Magnesium toxicity Calcium Gluconate (Calcium Gluconate Inj) 1 gm IV.PUSH PRN PRN PRN Reason: Magnesium toxicity Enoxaparin Sodium (Lovenox Inj) 60 mg SQ DAILY [facility] Last Admin: 07/20/18 09:29 Dose: 60 mg Hydrochlorothiazide (Hydrodiuril) 50 mg PO DAILY [facility] Last Admin: 07/20/18 09:28 Dose: 50 mg Oxytocin (Pitocin 30 Units/Ns 500 Ml Premix) 30 units in 500 mls @ 100 mls/hr IV.SIG UNSCH PRN PRN Reason: Heavy bleeding Ibuprofen (Motrin) 800 mg PO Q8H PRN PRN Reason: cramping Last Admin: 07/19/18 16:39 Dose: 800 mg Ketorolac Tromethamine (Toradol Inj) 30 mg IM Q6H PRN PRN Reason: SEE LABEL COMMENTS Lactulose (Lactulose Liq) 30 ml PO DAILY PRN PRN Reason: SEVERE CONSITIPATION Lisinopril (Prinivil) 20 mg PO DAILY [facility] Last Admin: 07/20/18 09:28 Dose: 20 mg Morphine Sulfate (Morphine Inj) 4 mg IV.PUSH Q4H PRN PRN Reason: back pain due to urosepsis Naloxone HCl (Narcan Inj) 0.4 mg IV.PUSH UNSCH PRN PRN Reason: SEE LABEL COMMENTS Nifedipine (Procardia) 20 mg PO NOW PRN PRN Reason: SEE LABEL COMMENTS Nifedipine (Procardia) 20 mg PO NOW PRN PRN Reason: SEE LABEL COMMENTS Ondansetron HCl (Zofran Inj) 4 mg IV.PUSH Q6H PRN PRN Reason: NAUSEA OR VOMITING Oxycodone/Acetaminophen (Percocet 5/325 Mg) 1 tab PO Q4H PRN PRN Reason: PAIN SCALE 3 TO 5 Last Admin: 07/19/18 23:37 Dose: 1 tab Oxycodone/Acetaminophen (Percocet 5/325 Mg) 2 tab PO Q4H PRN PRN Reason: PAIN SCALE 6 TO 10 Last Admin: 07/20/18 07:27 Dose: 2 tab Senna/Docusate Sodium (Siria-Colace) 2 tab PO Q12H PRN PRN Reason: CONSTIPATION Last Admin: 07/18/18 21:38 Dose: 2 tab Simethicone (Mylicon Chew) 80 mg PO QID PRN PRN Reason: FLATULENCE Last Admin: 07/19/18 23:37 Dose: 80 mg Sodium Chloride (Ns Flush) 2 ml IV.FLUSH BID [facility] Last Admin: 07/20/18 09:29 Dose: 2 ml Sodium Chloride (Ns Flush) 2 ml IV.FLUSH PRN PRN PRN Reason: FLUSH AFTER USING IV ACCESS Zolpidem Tartrate (Ambien) 5 mg PO HS PRN PRN Reason: INSOMNIA Assessment and Plan - Diagnosis (1) Chronic hypertension Code(s): I10 - Essential (primary) hypertension Status: Acute Plan: Pt has chronic hypertension since before . She was taking nifedipine in the past, but switched to Labetalol and Methyldopa during . Yesterday pt's BP were very difficult to control in the 188s-190s systolic. Pt was restarted on Magnesium for 24 hrs and received Lasix with urine output of over 5L Medicine team involved and following. (2) Status post delivery Code(s): Z98.891 - History of uterine scar from previous surgery Status: Acute Plan: Patient is s/p repeat LTCS and Right salpingectomy. Pain is controlled on meds. Denies nausea or vomiting S/P Magnesium for 24 hr (07/15-07/16) S/P Magnesium (07/17-07/19) (3) Preeclampsia Code(s): O14.90 - Unspecified pre-eclampsia, unspecified trimester Status: Acute Plan: Patient is s/p repeat LTCS for severe pre-eclampsia. BPs are stable 130-140s/80s. Denies headaches or vision changes or RUQ pain. Urine output satisfactory. No hyperreflexia. Finished 24 hr Magnesium Sulphate for eclampsia prophylaxis on 05/16, repeat dose 07/17-07/18 (4) Constipation Code(s): K59.00 - Constipation, unspecified Status: Acute Plan: Continue to optimize constipation control this morning as well as ambulation when possible. (5) H/O pulmonary embolus during Code(s): Z86.711 - Personal history of pulmonary embolism; Z87.59 - Personal history of other complications of , childbirth and the puerperium Status: Acute Plan: Negative CTA On Lovenox for prevention of DVT Pt will be discharged on anticoagulation for 6 weeks (6) DVT prophylaxis Status: Acute Plan: On Lovenox 40mg SQ daily (7) Nutrition, metabolism, and development symptoms Code(s): R63.8 - Other symptoms and signs concerning food and fluid intake Status: Acute Plan: FEN: PO hydration. Continue cardiac diet. Check electrolytes and replace as needed. - Plan Pt being followed by medicine team whom believes her baseline blood pressure is about 150-160's systolic. Pt will likely be discharged home today with a new medication regimen and will have close outpatient follow up. Pt discussed with Dr. Ayden Meyer
== END 2018-07-20 18:25 | disposition home or self-care (01) ==
LOC: H2E 07:57 → HOBED 07:57 → H2E 12:29 → H1EA 07-16 09:24 → H2E 07-17 17:43
PROVIDERS: ADMIT Obstetrics & Gynecology; ATTEND Obstetrics & Gynecology